=== PATIENT | female | born 1995 | race Caucasian/White ===

== ENCOUNTER 2020-04-08 09:28 | Emergency (ER) | payer OTHER, SELFPAY ==
--- OUTSIDE RECORDS SUMMARY | 2020-04-08 09:30 | XMS REPORT | Continuity of Care Document ---
:[address] [facility] t Address [address] [place] [address] [address]. [address] [place] [address] Care Team Providers Name Role Phone Unavailable Unavailable Unavailable Problems This patient has no known problems. Allergies, Adverse Reactions, Alerts This patient has no known allergies or adverse reactions. Medications This patient has no known medications. Procedures This patient has no known procedures. Encounters Start End Encounter Admission Attending Care Care Encounter Source Date/Time Date/Time Type Type Clinicians Facility Department ID 2018-03-06 2018-03-09 Outpatient [facility] [id number] [address] [place] [address] 00:00:00 00:00:00 [facility] Results This patient has no known results.
[2020-04-08] MEDS ORDERED: KETOROLAC 30 MG/ML INJ ONE (10:03)
[2020-04-08] MEDS ORDERED: METOCLOPRAMIDE 10 MG/2mL INJ ONE (10:03)
[2020-04-08] MEDS ORDERED: DIPHENHYDRAMINE 12.5MG/5ML LIQ ONE (10:04)
[2020-04-08] MEDS ORDERED: NA CHLORIDE 0.9% 1,000 ML ONE (10:04)
[2020-04-08] MEDS ORDERED: DIPHENHYDRAMINE 50 MG/ML VIAL ONE (10:10)
[2020-04-08] MEDS ORDERED: ACETAMIN/CAFFEINE/BUTALB TAB PO ONE (11:11)
[2020-04-08] MEDS ORDERED: ONDANSETRON 4 MG/2 ML VIAL ONE (11:11)
--- NOTE | 2020-04-08 11:32 | ER ---
Nurse's Notes [facility] Name: Symone Thompson Age: 25 yrs Sex: Female : 1995 Arrival Date: 04/08/2020 Time: 09:31 Bed 17 Private MD: Diagnosis: Migraine Presentation: 04/08 09:40 Chief complaint: Patient states: "severe migraine" x 2 days. Pt reports a history of ss migraines. Has been taking Tylenol for pain which has not helped. Coronavirus screen: Client denies travel out of the [place] in the last 14 days. Ebola Screen: Patient denies exposure to infectious person. Patient denies travel to an Ebola-affected area in the 21 days before illness onset. Initial Sepsis Screen: Does the patient meet any 2 criteria? No. Patient's initial sepsis screen is negative. Does the patient have a suspected source of infection? No. Patient's initial sepsis screen is negative. Risk Assessment: Do you want to hurt yourself or someone else? Patient reports no desire to harm self or others. Note Currently resident at [facility] for Marijuana detox. Onset of symptoms was April 06, 2020. 09:40 Acuity: JUN 4 ss 09:40 Method Of Arrival: Ambulatory ss 09:43 Acuity: JUN 3 vg1 Triage Assessment: 10:00 Pain: Also complains of nausea. vg1 10:00 Pain: Pain began 2-3 days ago. vg1 10:05 Headache History: Other patient states has migraines from time to time. 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 - Social history:: Smoking status: Patient reports the use of cigarette tobacco products, smokes one-half pack cigarettes per day. Screenin:00 Abuse screen: Denies threats or abuse. Nutritional screening: No deficits noted. vg1 Tuberculosis screening: No symptoms or risk factors identified. Fall Risk Ambulatory Aid- None/Bed Rest/Nurse Assist (0 pts). Gait- Normal/Bed Rest/Wheelchair (0 pts) Mental Status- Oriented to own ability (0 pts). Total Roque Fall Scale indicates No Risk (0-24 pts). Assessment: 10:00 General: Appears uncomfortable, Behavior is calm, cooperative. Pain: Complains of pain vg1 in head Pain currently is 9 out of 10 on a pain scale. Neuro: Level of Consciousness is awake, alert, obeys commands, Oriented to person, place, time, situation, Speech is normal, Facial symmetry appears normal. Cardiovascular: Capillary refill < 3 seconds Patient's skin is warm and dry. Respiratory: Airway is patent Respiratory effort is even, unlabored, Respiratory pattern is regular, symmetrical. GI: Reports vomited " a lot" this morning. : No signs and/or symptoms were reported regarding the genitourinary system. EENT: No signs and/or symptoms were reported regarding the EENT system. Derm: Skin is intact, is healthy with good turgor, Skin is pink, warm \\T\\ dry. 10:00 Musculoskeletal: Capillary refill < 3 seconds, Range of motion: intact in all vg1 extremities. 10:00 General: Reports headache started two days ago and has been taking Tylenol but it isnt vg1 working. Patient states last dose of Tylenol was last night and took two tablets. 11:00 Reassessment: Patient appears in no apparent distress at this time. No changes from vg1 previously documented assessment. Patient and/or family updated on plan of care and expected duration. Pain level reassessed. Patient is alert, oriented x 3, equal unlabored respirations, skin warm/dry/pink. 11:27 Reassessment: Patient resting in bed. Lights are off, patient states the light bothers vg1 her. States that pain is "a little better" rated 7/10. 11:45 Reassessment: Patient appears in no apparent distress at this time. Patient and/or vg1 family updated on plan of care and expected duration. Pain level reassessed. Patient is alert, oriented x 3, equal unlabored respirations, skin warm/dry/pink. Patient states headache is better and rated 5/10. Vital Signs: 09:40 BP 120 / 77; Pulse 80; Resp 14; Temp 97.8(TE); Pulse Ox 100% on R/A; Weight 104.33 kg; ss Height 5 ft. 8 in. (172.72 cm); Pain 9/10; 10:35 BP 107 / 57; Pulse 97; Resp 12; Pulse Ox 97% on R/A; Pain 9/10; vg1 11:00 BP 111 / 78; Pulse 95; Resp 12; Pulse Ox 98% on R/A; Pain 9/10; vg1 11:37 BP 95 / 50; Pulse 81; Resp 14; Pulse Ox 98% on R/A; Pain 5/10; vg1 09:40 Body Mass Index 34.97 (104.33 kg, 172.72 cm) ss [place] Coma Score: 09:44 Eye Response: spontaneous(4). Verbal Response: oriented(5). Motor Response: obeys kb commands(6). Total: 15. ED Course: 09:31 Patient arrived in ED. mr 09:37 Bernard Nancie, GEMA [facility]. kb 09:37 Rodolfo Pepe MD is Attending Physician. kb 09:41 Pam Delgado, RN is Primary Nurse. hb 09:42 Primary Nurse role handed off by Pam Delgado, RN vg1 09:42 Marybel High, RN is Primary Nurse. vg1 09:42 Triage completed. ss 09:46 Arm band placed on right wrist. ss 10:00 Patient has correct armband on for positive identification. Bed in low position. Call vg1 light in reach. Pulse ox on. NIBP on. Door closed. Lights dimmed. 11:45 No provider procedures requiring assistance completed. IV discontinued, intact, vg1 bleeding controlled, No redness/swelling at site. Pressure dressing applied. Administered Medications: 10:18 Drug: NS 0.9% 1000 ml Route: IV; Rate: 1000 ml; Site: right hand; vg1 11:07 Follow up: Response: No adverse reaction; Rate change 1000 bolus vg1 10:18 Drug: Reglan 10 mg Route: IVP; Site: right hand; vg1 11:07 Follow up: Response: No adverse reaction vg1 10:18 Drug: Benadryl 12.5 mg Route: IVP; Site: right hand; vg1 11:06 Follow up: Response: No adverse reaction vg1 10:18 Drug: TORadol - Ketorolac 15 mg Route: IVP; Site: right hand; vg1 11:06 Follow up: Response: No adverse reaction; Pain is unchanged, physician notified vg1 11:06 Drug: Zofran (Ondansetron) 4 mg Route: IVP; Site: right hand; vg1 11:27 Follow up: Response: No adverse reaction; Nausea is decreased vg1 11:06 Drug: Fioricet - Esgic 325 mg-40 mg-50 mg 1 tab-caps Route: PO; vg1 Outcome: 11:32 Discharge ordered by . iliana 11:45 Discharged to home ambulatory. vg1 11:45 Condition: good 11:45 Discharge instructions given to patient, Instructed on discharge instructions, follow up and referral plans. Demonstrated understanding of instructions, follow-up care. 11:52 Patient left the ED. vg1 Signatures: Nancie Wagner, FITNESS SPECIALIST-C FITNESS SPECIALIST-Kimberly Zabala Poornima Arias, RN RN Pam Casey, Marybel Oneill RN, RN RN vg1
--- NOTE | 2020-04-08 11:33 | EDPHYS ---
Physician Documentation [facility] Name: Symone Thompson Age: 25 yrs Sex: Female : 1995 Arrival Date: 04/08/2020 Time: 09:31 Bed 17 Private MD: ED Physician Rodolfo Pepe HPI: 04/08 09:44 This 25 yrs old Female presents to ER via Ambulatory with complaints of kb Headache. 09:44 The patient complains of pain to the forehead. The patient describes the headache as kb constant. Onset: The symptoms/episode began/occurred 2 day(s) ago. Associated signs and symptoms: Pertinent positives: nausea, Photophobia vomiting, Pertinent negatives: altered mental status, dizziness, fever, malaise, neck stiffness, paresthesias, rash, sinus congestion, sinus tenderness, vision changes, vision loss, weakness, vertigo. Severity of symptoms: At its worst the pain was moderate, in the emergency department the pain is unchanged. Headache History: The patient has had previous headaches and this one is similar to previous episodes. The symptoms are alleviated by nothing. the symptoms are aggravated by lights, noise. The patient has experienced similar episodes in the past. The patient has not recently seen a physician. 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 - Social history:: Smoking status: Patient reports the use of cigarette tobacco products, smokes one-half pack cigarettes per day. ROS: 09:44 Constitutional: Negative for fever, chills, and weight loss, Cardiovascular: Negative kb for chest pain, palpitations, and edema, Respiratory: Negative for shortness of breath, cough, wheezing, and pleuritic chest pain, Abdomen/GI: Negative for abdominal pain, nausea, vomiting, diarrhea, and constipation, Back: Negative for injury and pain, MS/Extremity: Negative for injury and deformity, Skin: Negative for injury, rash, and discoloration. 09:44 Neuro: Positive for headache. Exam: :44 Constitutional: This is a well developed, well nourished patient who is awake, alert, kb and in no acute distress. Head/Face: Normocephalic, atraumatic. Eyes: Pupils equal round and reactive to light, extra-ocular motions intact. Lids and lashes normal. Conjunctiva and sclera are non-icteric and not injected. Cornea within normal limits. Periorbital areas with no swelling, redness, or edema. Chest/axilla: Normal chest wall appearance and motion. Nontender with no deformity. No lesions are appreciated. Cardiovascular: Regular rate and rhythm with a normal S1 and S2. No gallops, murmurs, or rubs. Normal PMI, no JVD. No pulse deficits. Respiratory: Lungs have equal breath sounds bilaterally, clear to auscultation and percussion. No rales, rhonchi or wheezes noted. No increased work of breathing, no retractions or nasal flaring. Abdomen/GI: Soft, non-tender, with normal bowel sounds. No distension or tympany. No guarding or rebound. No evidence of tenderness throughout. Skin: Warm, dry with normal turgor. Normal color with no rashes, no lesions, and no evidence of cellulitis. MS/ Extremity: Pulses equal, no cyanosis. Neurovascular intact. Full, normal range of motion. Neuro: Awake and alert, GCS 15, oriented to person, place, time, and situation. Cranial nerves II-XII grossly intact. Motor strength 5/5 in all extremities. Sensory grossly intact. Cerebellar exam normal. Normal gait. Vital Signs: 09:40 BP 120 / 77; Pulse 80; Resp 14; Temp 97.8(TE); Pulse Ox 100% on R/A; Weight 104.33 kg; ss Height 5 ft. 8 in. (172.72 cm); Pain 9/10; 10:35 BP 107 / 57; Pulse 97; Resp 12; Pulse Ox 97% on R/A; Pain 9/10; vg1 11:00 BP 111 / 78; Pulse 95; Resp 12; Pulse Ox 98% on R/A; Pain 9/10; vg1 11:37 BP 95 / 50; Pulse 81; Resp 14; Pulse Ox 98% on R/A; Pain 5/10; vg1 09:40 Body Mass Index 34.97 (104.33 kg, 172.72 cm) ss [place] Coma Score: 09:44 Eye Response: spontaneous(4). Verbal Response: oriented(5). Motor Response: obeys kb commands(6). Total: 15. MDM: 09:37 Patient medically screened. kb 09:44 Data reviewed: vital signs, nurses notes. Data interpreted: Pulse oximetry: on room air kb is 100 %. Interpretation: normal. 04/08 09:40 Order name: IV Start; Complete Time: 10:26 kb Administered Medications: 10:18 Drug: NS 0.9% 1000 ml Route: IV; Rate: 1000 ml; Site: right hand; vg1 11:07 Follow up: Response: No adverse reaction; Rate change 1000 bolus vg1 10:18 Drug: Reglan 10 mg Route: IVP; Site: right hand; vg1 11:07 Follow up: Response: No adverse reaction vg1 10:18 Drug: Benadryl 12.5 mg Route: IVP; Site: right hand; vg1 11:06 Follow up: Response: No adverse reaction vg1 10:18 Drug: TORadol - Ketorolac 15 mg Route: IVP; Site: right hand; vg1 11:06 Follow up: Response: No adverse reaction; Pain is unchanged, physician notified vg1 11:06 Drug: Zofran (Ondansetron) 4 mg Route: IVP; Site: right hand; vg1 11:27 Follow up: Response: No adverse reaction; Nausea is decreased vg1 11:06 Drug: Fioricet - Esgic 325 mg-40 mg-50 mg 1 tab-caps Route: PO; vg1 Disposition: 18:56 Co-signature as Attending Physician, Rodolfo Pepe MD I agree with the assessment and kdr plan of care. Disposition: 04/08/20 11:32 Discharged to Home. Impression: Migraine. - Condition is Stable. - Discharge Instructions: Migraine Headache, [id number]. - Medication Reconciliation Form, Thank You Letter, Antibiotic Education, Prescription Opioid Use form. - Follow up: Private Physician; When: 2 - 3 days; Reason: Recheck today's complaints, Continuance of care, Re-evaluation by your physician. Follow up: Emergency Department; When: As needed; Reason: Worsening of condition. Signatures: Nancie Wagner, MARYCHUY-C AUTOMATIC GRINDING MACHINE OPERATOR-Rodolfo Nelson MD MD [facility] Poornima Arias RN RN ss Marybel High RN RN vg1 Corrections: (The following items were deleted from the chart) 11:52 11:32 04/08/2020 11:32 Discharged to Home. Impression: Migraine. Condition is Stable. vg1 Discharge Instructions: Migraine Headache, [id number]. Forms are Medication Reconciliation Form, Thank You Letter, Antibiotic Education, Prescription Opioid Use. Follow up: Private Physician; When: 2 - 3 days; Reason: Recheck today's complaints, Continuance of care, Re-evaluation by your physician. Follow up: Emergency Department; When: As needed; Reason: Worsening of condition. kb
[2020-04-08 11:57] VITALS: TEMP 97.8
[2020-04-08 12:00] VITALS: BP 111/78; O2SAT 98
== END 2020-04-08 11:52 | disposition home or self-care (01) ==
LOC: ER 09:28
DX: G43.909 Migraine, unspecified, not intractable, without status migrainosus (principal); F31.9 Bipolar disorder, unspecified; F17.210 Nicotine dependence, cigarettes, uncomplicated; Z88.0 Allergy status to penicillin
CPT/HCPCS: 96374; 96375; 99283; J1200; J2405; J2765; J7030; Q0163

== ENCOUNTER 2020-04-13 14:30 | Emergency (ER) | payer SELFPAY ==
--- OUTSIDE RECORDS SUMMARY | 2020-04-13 14:32 | XMS REPORT | Continuity of Care Document ---
:1995 Author Organization [facility] t Address [address] [place] [address] Dr. Soriano [address] [place] [address] Care Team Providers Name Role Phone Unavailable [...] Clinicians Facility Department ID 2018-03-06 2018-03-09 [facility] [id number] [address] [place] [address] 00:00:00 00:00:00 [facility] Results This patient has no known results.
[2020-04-13 15:22] LABS: Absolute Lymphocytes (CBC) 3.3 K/uL (0.7-4.9); Basophils % 0.4 % (0-1.3); Hematocrit 42.3 % (36.0-45.0); Lymphocytes % 22.1 % (15.3-44.8); MPV 9.6 fL (7.6-11.3); RBC Red Blood Cell Count 4.98 M/uL (3.86-4.86)
[2020-04-13] MEDS ORDERED: MORPHINE 2 MG/ML SYR ONE (15:22)
[2020-04-13] MEDS ORDERED: ONDANSETRON 4 MG/2 ML VIAL ONE ×2 (15:23→19:14)
[2020-04-13] MEDS ORDERED: NA CHLORIDE 0.9% 1,000 ML ONE (15:23)
[2020-04-13 15:25] LABS: Protime INR 0.98
--- NOTE | 2020-04-13 15:30 | RAD REPORT ---
EXAM DESCRIPTION: CT - Head Brain Wo Cont - 04/13/2020 3:17 pm CLINICAL HISTORY: Syncope COMPARISON: None TECHNIQUE: Computed axial tomography of the head was obtained. IV contrast was not requested. All CT scans are performed using dose optimization technique as appropriate and may include automated exposure control or mA/KV adjustment according to patient size. FINDINGS: An intracranial bleed is not seen . The ventricles are normal in caliber. No extra-axial fluid collection is noted. Mild to moderate low-density areas within periventricular, deep and subcortical white matter likely r epresent ischemic changes secondary to small vessel disease. Fluid within the sinuses/ mastoids is not seen. IMPRESSION: No acute intracranial abnormality is seen. If patient's symptoms persist MRI of the bra in would be recommended.
--- NOTE | 2020-04-13 15:41 | RAD REPORT ---
EXAM DESCRIPTION: [place] Single View04/13/2020 3:11 pm CLINICAL HISTORY: Chest pain COMPARISON: none FINDINGS: The lungs appear clear of acute infiltrate. The heart is normal size IMPRESSION: No acute abnormalities displayed
[2020-04-13 15:47] LABS: ALT/SGPT 20 U/L (12-78); AST/SGOT 11 U/L (15-37); Alkaline Phosphatase 99 U/L (45-117); BUN Blood Urea Nitrogen 10 mg/dL (7-18); Bicarbonate 28 mmol/L (21-32); Bilirubin Direct < 0.1 mg/dL (0-0.2); Bilirubin Total 0.3 mg/dL (0.2-1.0); Glucose Level 105 mg/dL (74-106); Potassium 3.7 mmol/L (3.5-5.1); Protein, Total 7.9 g/dL (6.4-8.2); Sodium Level 139 mmol/L (136-145); Troponin (Emerg Dept Use Only) < 0.02 ng/mL (0.0-0.045)
[2020-04-13 15:48] LABS: NT PRO-BNP < 5 pg/mL (<125)
[2020-04-13 15:59] LABS: Urine Blood NEGATIVE (NEG); Urine Glucose NEGATIVE (NEG); Urine Protein NEGATIVE (NEG); Urine Specific Gravity 1.015 (1.005-1.030)
[2020-04-13] MEDS ORDERED: KETOROLAC 30 MG/ML INJ ONE (17:06)
--- NOTE | 2020-04-13 17:19 | RAD REPORT ---
EXAM DESCRIPTION: CT - Abdomen Pelvis W Contrast - 04/13/2020 4:51 pm CLINICAL HISTORY: Abdominal pain COMPARISON: 2013 TECHNIQUE: Computed axial tomography of the abdomen pelvis was obtained. 100 cc Isovue-300 was admin istered intravenously. Oral contrast was not requested which limits evaluation of bowel. All CT scans are performed using dose optimization technique as appropriate and may include automated exposure control or mA/KV adjustment according to patient size. FINDINGS: The liver, spleen, pancreas, adrenal and kidneys appear unremarkable. There is no evidence of diverticulitis. IUD in good position Proximal and mid appendix normal. Mild thickening of the appendiceal tip. No adjacent stranding withi n the fat. No free air. No abscess A small ventral hernia within the lower abdomen contains fat. The neck measures 1 centimeter. Tiny um bilical hernia IMPRESSION: Mild thickening of the appendiceal tip. This is visualized on the 2013 exam so it may be a normal finding for the patient. An early appendicitis can also result this appearance and should c orrelated clinically.
[2020-04-13] MEDS ORDERED: DICYCLOMINE HCL 10 MG CAP ONE (17:57)
[2020-04-13] MEDS ORDERED: CIPROFLOXACIN 400mg IV 400 MG/200 ML BAG IV ONE (18:49)
[2020-04-13] MEDS ORDERED: METRONIDAZOLE 500mg IVPB 500 MG/100 ML BAG IV ONE (18:49)
--- NOTE | 2020-04-13 19:02 | EDPHYS ---
Physician Documentation [facility] Name: Symone Thompson Age: 25 yrs Sex: Female : 1995 Arrival Date: 04/13/2020 Time: 14:32 Bed 14 Private MD: ED Physician HPI: 04/13 15:09 This 25 yrs old Female presents to ER via Ambulatory with complaints of jmm Syncope. 15:09 The patient has experienced syncope. Onset: The symptoms/episode began/occurred jmm acutely, just prior to arrival. Duration: This was a single episode. Associated injury: Head/face:. Associated signs and symptoms: Pertinent positives: vaginal bleeding. This is a 25 year old female with a history of anxiety, depression, von wildebrands anemia, bipolar that presents to the ED with complaints of headache, pelvic cramping after a syncopal episode which occurred just prior to arrival. Patient started her cycle 2 days ago and now complains of pelvic cramping. . Historical: - Allergies: 14:39 PENICILLINS; ll1 - PMHx: 14:39 Anxiety; Depression; ibs; vonwildebrands; Migraines; Bipolar disorder; ll1 - PSHx: 14:39 None; ll1 - Immunization history:: Flu vaccine is up to date. - Social history:: Smoking status: Patient reports the use of cigarette tobacco products, smokes one-half pack cigarettes per day. ROS: 15:09 Constitutional: Negative for fever, chills, and weight loss, Cardiovascular: Negative jmm for chest pain, palpitations, and edema, Respiratory: Negative for shortness of breath, cough, wheezing, and pleuritic chest pain. 15:09 : Positive for vaginal bleeding. 15:09 Neuro: Positive for headache, loss of consciousness, syncope. 15:09 All other systems are negative. Exam: 15:05 ECG was reviewed by the Attending Physician. jmm 15:09 Constitutional: This is a well developed, well nourished patient who is awake, alert, jmm and in no acute distress. Head/Face: atraumatic. Eyes: EOMI, no conjunctival erythema appreciated ENT: Moist Mucus Membranes Neck: Trachea midline, Supple Chest/axilla: Normal chest wall appearance and motion. Cardiovascular: Regular rate and rhythm. No edema appreciated Respiratory: Normal respirations, no respiratory distress appreciated Abdomen/GI: Non distended, soft Back: Normal ROM Skin: General appearance color normal MS/ Extremity: Moves all extremities, no obvious deformities appreciated, no edema noted to the lower extremities Neuro: Awake and alert, normal gait Psych: Behavior is normal, Mood is normal, Patient is cooperative and pleasant Vital Signs: 14:37 BP 119 / 55; Pulse 103; Resp 18; Temp 98.5; Pulse Ox 99% ; Weight 99.79 kg; Height 5 ll1 ft. 5 in. (165.10 cm); Pain 9/10; 16:07 BP 107 / 55 Supine; Pulse 84; ss 16:07 BP 112 / 72 Sitting; Pulse 89; ss 16:07 BP 99 / 70 Standing; Pulse 93; ss 16:07 Resp 14; Pulse Ox 99% on R/A; ss 18:24 BP 104 / 63; Pulse 80; Resp 14; Pulse Ox 99% on R/A; Pain 8/10; ss 19:26 BP 104 / 65; Pulse 78; Resp 18; Pulse Ox 98% ; ea 20:18 BP 114 / 84; Pulse 80; Resp 18; Pulse Ox 98% ; ea 14:37 Body Mass Index 36.61 (99.79 kg, 165.10 cm) ll1 MDM: 14:51 Patient medically screened. [facility] 18:56 Data reviewed: vital signs, nurses notes, lab test result(s). Counseling: I had a [facility] detailed discussion with the patient and/or guardian regarding: the historical points, exam findings, and any diagnostic results supporting the discharge/admit diagnosis, lab results, radiology results, the need to transfer to another facility. ED course: I discussed the patient with Dr. Castillo and Dr. Casarez whom accepted the patient for transfer. . 04/13 14:48 Order name: Basic Metabolic Panel; Complete Time: 16:25 [facility] 04/13 14:48 Order name: CBC with Diff; Complete Time: 15:43 [facility] 04/13 14:48 Order name: LFT's; Complete Time: 16:25 [facility] 04/13 14:48 Order name: Magnesium; Complete Time: 16:25 [facility] 04/13 14:48 Order name: NT PRO-BNP; Complete Time: 16:25 [facility] 04/13 14:48 Order name: PT-INR; Complete Time: 15:43 [facility] 04/13 14:48 Order name: Troponin (emerg Dept Use Only); Complete Time: 16:25 [facility] 04/13 14:48 Order name: Type And Screen; Complete Time: 16:25 [facility] 04/13 15:33 Order name: Urine Dipstick--Ancillary (enter results); Complete Time: 16:25 bd 04/13 15:33 Order name: Urine --Ancillary (enter results); Complete Time: 16:25 bd 04/13 15:44 Order name: D-Dimer; Complete Time: 16:31 [facility] 04/13 14:48 Order name: XRAY Chest (1 view); Complete Time: 15:43 [facility] 04/13 14:48 Order name: EKG; Complete Time: 14:49 [facility] 04/13 14:48 Order name: Cardiac monitoring; Complete Time: 15:04 [facility] 04/13 14:56 Order name: CT Head Brain wo Cont; Complete Time: 15:43 [facility] 04/13 16:32 Order name: CT Abd/Pelvis - IV Contrast Only; Complete Time: 17:25 [facility] 04/13 14:48 Order name: EKG - Nurse/Tech; Complete Time: 15:04 [facility] 04/13 14:48 Order name: IV Saline Lock; Complete Time: 15:05 [facility] 04/13 14:48 Order name: Labs collected and sent; Complete Time: 15:05 [facility] 04/13 14:48 Order name: O2 Per Protocol; Complete Time: 15:05 [facility] 04/13 14:48 Order name: O2 Sat Monitoring; Complete Time: 15:05 [facility] 04/13 14:56 Order name: Urine Dipstick-Ancillary (obtain specimen); Complete Time: 15:31 [facility] 04/13 14:56 Order name: Urine Test (obtain specimen); Complete Time: 15:31 [facility] 04/13 15:43 Order name: Orthostatic Blood Pressure; Complete Time: 16:09 [facility] 04/13 17:58 Order name: Pelvic Exam Setup; Complete Time: 18:33 jmm EC:05 Rate is 90 beats/min. Rhythm is regular. QRS [place] is Normal. MN interval is normal. QRS jmm interval is normal. QT interval is normal. No Q waves. T waves are Inverted in leads III, aVR. No ST changes noted. Reviewed by me. Administered Medications: 15:18 Drug: NS 0.9% 1000 ml Route: IV; Rate: 1 bolus; Site: right antecubital; ss 15:20 Drug: Zofran (Ondansetron) 4 mg Route: IVP; Site: right antecubital; ss 16:04 Follow up: Response: No adverse reaction ss 15:22 Drug: morphine 2 mg Route: IVP; Site: right antecubital; ss 16:03 Follow up: Response: No adverse reaction; Pain is decreased ss 16:57 Drug: Ketorolac 30 mg Route: IVP; Site: right antecubital; ss 18:33 Follow up: Response: No adverse reaction; No change in condition ss 17:47 Drug: Bentyl 20 mg Route: PO; jl7 18:34 Follow up: Response: No adverse reaction; No change in condition ss 18:43 Drug: Flagyl 500 mg Volume: 100 ml; Route: IVPB; Rate: 200 ml/hr; Infused Over: 30 ss mins; Site: right antecubital; 19:12 Follow up: IV Status: Completed infusion ss 19:23 Follow up: Response: No adverse reaction; IV Status: Completed infusion ea 19:15 Drug: Zofran (Ondansetron) 4 mg Route: IVP; Site: right antecubital; ea 20:18 Follow up: Response: No adverse reaction ea 19:18 Drug: morphine 4 mg {Note: rass 0.} Route: IVP; Site: right antecubital; ea 20:18 Follow up: Response: No adverse reaction; Pain is decreased ea 19:23 Drug: Cipro 400 mg Volume: 200 ml; Route: IVPB; Infused Over: 60 mins; Site: right ea antecubital; 20:17 Follow up: Response: No adverse reaction; IV Status: Completed infusion ea 20:31 Drug: morphine 4 mg {Note: rass 0.} Route: IVP; Site: right antecubital; ea 20:38 Follow up: Response: Other ea Disposition: 04/14 06:32 Co-signature as Attending Physician, Rodolfo Pepe MD I agree with the assessment and kdr plan of care. Disposition: 04/13/20 19:01 Transfer ordered to [facility]. Diagnosis are Acute appendicitis, Syncope and collapse. - Reason for transfer: Higher level of care. - Accepting physician is [employer]. - Condition is Stable. - Problem is new. - Symptoms are unchanged. Signatures: Dispatcher [employer] [facility] Rodolfo Pepe MD MD kdr Mickail, Joel, PA PA [facility] Poornima Arias, RN RN Anjelica Hernández RN RN jl7 Sarika Katz RN Amadeo Nelson ea RN RN ll1 Corrections: (The following items were deleted from the chart) 04/13 15:56 15:44 Abdomen Pelvis W Con+CT.RAD.BRZ ordered. [facility] 20:16 19:01 04/13/2020 19:01 Transfer ordered to [facility]. ea Diagnosis is Acute appendicitis; Syncope and collapse. Reason for transfer: Higher level of care. Accepting physician is [employer]. Condition is Stable. Problem is new. Symptoms are unchanged. [facility] 20:32 20:16 04/13/2020 19:01 Transfer ordered to [facility]. ea Diagnosis is Acute appendicitis; Syncope and collapse. Reason for transfer: Higher level of care. Accepting physician is [employer]. Condition is Stable. Problem is new. Symptoms are unchanged. ea
--- NOTE | 2020-04-13 19:02 | ER ---
Nurse's Notes [facility] Name: Symone Thompson Age: 25 yrs Sex: Female : 1995 Arrival Date: 04/13/2020 Time: 14:32 Bed 14 Private MD: Diagnosis: Acute appendicitis;Syncope and collapse Presentation: 04/13 14:37 Chief complaint: Patient states: States she passed out today. Has been weak for 3 days. ll1 States she has von Willebrand's disease. She believes her iron is low, or she is anemic. Some abdominal cramping. Coronavirus screen: Client denies travel out of the [place] in the last 14 days. At this time, the client does not indicate any symptoms associated with coronavirus-19. Ebola Screen: Patient denies travel to an Ebola-affected area in the 21 days before illness onset. Initial Sepsis Screen: Does the patient meet any 2 criteria? HR > 90 bpm. No. Patient's initial sepsis screen is negative. Does the patient have a suspected source of infection? Yes: Acute abdominal pain. Risk Assessment: Do you want to hurt yourself or someone else? Patient reports no desire to harm self or others. Onset of symptoms was April 11, 2020. 14:37 Method Of Arrival: Ambulatory ll1 14:37 Acuity: JUN 3 ll1 Historical: - Allergies: 14:39 PENICILLINS; ll1 - PMHx: 14:39 Anxiety; Depression; ibs; vonwildebrands; Migraines; Bipolar disorder; ll1 - PSHx: 14:39 None; ll1 - Immunization history:: Flu vaccine is up to date. - Social history:: Smoking status: Patient reports the use of cigarette tobacco products, smokes one-half pack cigarettes per day. Screenin:48 Abuse screen: Denies threats or abuse. Denies injuries from another. Nutritional ss screening: No deficits noted. Tuberculosis screening: Never had TB. Fall Risk None identified. Assessment: 14:48 General: Appears in no apparent distress. comfortable, Behavior is calm, cooperative, ss quiet, Reports fatigue for 1-2 days, Denies fever, feeling ill, chills. Pain: Complains of pain in suprapubic area Pain currently is 9 out of 10 on a pain scale. Quality of pain is described as crampy, Pain began "2 days ago" when menstrual cycle started Is continuous. Neuro: Level of Consciousness is awake, alert, obeys commands, Oriented to person, place, time, situation. Cardiovascular: Capillary refill < 3 seconds is brisk in bilateral fingers. Respiratory: Airway is patent Respiratory effort is even, unlabored, Respiratory pattern is regular, symmetrical. GI: Patient currently denies diarrhea, nausea, vomiting. : Reports vaginal bleeding x 2 days. "menstrual cycle". EENT: Oral mucosa is moist. Derm: Skin is intact, is healthy with good turgor, Skin is dry, Skin is pink, warm \\T\\ dry. normal. 15:50 Reassessment: Patient appears in no apparent distress at this time. No changes from ss previously documented assessment. 16:30 Reassessment: Patient and/or family updated on plan of care and expected duration. Pain ss level reassessed. Patient is alert, oriented x 3, equal unlabored respirations, skin warm/dry/pink. 17:13 Reassessment: Patient appears in no apparent distress at this time. Patient and/or ss family updated on plan of care and expected duration. Pain level reassessed. Patient is alert, oriented x 3, equal unlabored respirations, skin warm/dry/pink. awaiting CT results. 17:29 Reassessment: CT results back, awaiting disposition. ss 18:24 Reassessment: Set up for pelvic exam. Order to hold exam at this time per chente Watt. 20:15 Reassessment: Patient and/or family updated on plan of care and expected duration. Pain ea level reassessed. Patient is alert, oriented x 3, equal unlabored respirations, skin warm/dry/pink. Pt transferred to [facility]. Pt left ED via [facility], pt tolerating well. 20:20 Reassessment: report called to Magaly NGUYEN for room 943 [facility]. bb Vital Signs: 14:37 BP 119 / 55; Pulse 103; Resp 18; Temp 98.5; Pulse Ox 99% ; Weight 99.79 kg; Height 5 ll1 ft. 5 in. (165.10 cm); Pain 9/10; 16:07 BP 107 / 55 Supine; Pulse 84; ss 16:07 BP 112 / 72 Sitting; Pulse 89; ss 16:07 BP 99 / 70 Standing; Pulse 93; ss 16:07 Resp 14; Pulse Ox 99% on R/A; ss 18:24 BP 104 / 63; Pulse 80; Resp 14; Pulse Ox 99% on R/A; Pain 8/10; ss 19:26 BP 104 / 65; Pulse 78; Resp 18; Pulse Ox 98% ; ea 20:18 BP 114 / 84; Pulse 80; Resp 18; Pulse Ox 98% ; ea 14:37 Body Mass Index 36.61 (99.79 kg, 165.10 cm) ll1 ED Course: 14:32 Patient arrived in ED. bp1 14:39 Triage completed. ll1 14:40 Arm band placed on Patient placed in an exam room, on a stretcher. ll1 14:45 Lorne Jimenez PA is PHCP. [facility] 14:45 Rodolfo Pepe MD is Attending Physician. [facility] 14:48 Patient has correct armband on for positive identification. Bed in low position. Call ss light in reach. Warm blanket given. 14:50 Poornima Arias, WENDY is Primary Nurse. ss 15:00 Initial lab(s) drawn, by az, sent to lab. T\\T\\S collected, blood band applied to patient. jp3 Inserted saline lock: 20 gauge in right antecubital area, using aseptic technique. Blood collected. 15:00 Patient maintains SpO2 saturation greater than 95% on room air. jp3 15:04 laboratory monitor on. Pulse ox on. NIBP on. jp3 15:04 X-ray(s) taken. jp3 15:11 XRAY Chest (1 view) In Process Unspecified. EDMS 15:17 CT Head Brain wo Cont In Process Unspecified. EDMS 16:51 CT Abd/Pelvis - IV Contrast Only In Process Unspecified. EDMS 19:00 Report on transfer received from Ama. tt3 19:17 Evelyn Syed gave admin approval. The pt is going to room 943. Report to be called tt3 to . Face Sheet faxed to per Evelyn's request. Dr. Murry is the accepting physician. 19:26 No provider procedures requiring assistance completed. Patient transferred, IV remains ea in place. 20:19 Attending Physician role handed off by Rodolfo Pepe MD bb 20:19 Primary Nurse role handed off by Poornima Arias RN bb 20:21 [facility] here to transfer pt. tt3 Administered Medications: 15:18 Drug: NS 0.9% 1000 ml Route: IV; Rate: 1 bolus; Site: right antecubital; ss 15:20 Drug: Zofran (Ondansetron) 4 mg Route: IVP; Site: right antecubital; ss 16:04 Follow up: Response: No adverse reaction ss 15:22 Drug: morphine 2 mg Route: IVP; Site: right antecubital; ss 16:03 Follow up: Response: No adverse reaction; Pain is decreased ss 16:57 Drug: Ketorolac 30 mg Route: IVP; Site: right antecubital; ss 18:33 Follow up: Response: No adverse reaction; No change in condition ss 17:47 Drug: Bentyl 20 mg Route: PO; jl7 18:34 Follow up: Response: No adverse reaction; No change in condition ss 18:43 Drug: Flagyl 500 mg Volume: 100 ml; Route: IVPB; Rate: 200 ml/hr; Infused Over: 30 ss mins; Site: right antecubital; 19:12 Follow up: IV Status: Completed infusion ss 19:23 Follow up: Response: No adverse reaction; IV Status: Completed infusion ea 19:15 Drug: Zofran (Ondansetron) 4 mg Route: IVP; Site: right antecubital; ea 20:18 Follow up: Response: No adverse reaction ea 19:18 Drug: morphine 4 mg {Note: rass 0.} Route: IVP; Site: right antecubital; ea 20:18 Follow up: Response: No adverse reaction; Pain is decreased ea 19:23 Drug: Cipro 400 mg Volume: 200 ml; Route: IVPB; Infused Over: 60 mins; Site: right ea antecubital; 20:17 Follow up: Response: No adverse reaction; IV Status: Completed infusion ea 20:31 Drug: morphine 4 mg {Note: rass 0.} Route: IVP; Site: right antecubital; ea 20:38 Follow up: Response: Other ea Outcome: 19:01 ER care complete, transfer ordered by . ana 19:26 Instructed on the need for transfer. ea 20:15 Transferred by ground EMS to [facility], Transfer form completed. ea 20:15 Condition: stable 20:16 Patient left the ED. ea 20:32 Patient left the ED. ea Signatures: Dispatcher [employer] EDMS Lorne Jimenez PA PA jmm Ballard, Brenda, RN RN bb Poornima Arias RN RN ss Anjelica Herbert RN RN jl7 Sarika Katz RN RN Gigi Amato jp3 Amadeo Boland RN RN ll1 Tiffanie Cohen [facility] eJff Hamm tt3 Corrections: (The following items were deleted from the chart) 16:05 16:04 BP 107 / 55 Supine; Pulse 84bpm; ss ss 16:05 16:04 BP 112 / 72; Pulse 89bpm; Resp 14bpm; Pulse Ox 99% RA; ss ss
[2020-04-13] MEDS ORDERED: MORPHINE 4 MG/ML SYR ONE ×2 (19:14→20:39)
[2020-04-13 20:45] VITALS: TEMP 98.5
[2020-04-13 20:55] VITALS: O2SAT 98
[2020-04-13 21:16] VITALS: BP 114/84
--- NOTE | 2020-04-14 11:30 | EKG ---
Test Date: 2020-04-13 Test Time: 14:58:28 [employer] Operator: ALONA MEASUREMENT RESULTS: Intervals: Rate: 90 HI: 160 QRSD: 84 QT: 376 QTc: 459 [place]: P: 37 HI: 160 QRS: 7 T: 12 INTERPRETIVE STATEMENTS: Normal sinus rhythm Moderate voltage criteria for LVH, may be normal variant Nonspecific T wave abnormality Abnormal ECG No previous ECG available for comparison Electronically Signed On 04-14-20 11:27:14 CDT by Norman Fulton
== END 2020-04-13 20:32 | disposition short-term general hospital (02) ==
LOC: ER 14:30
DX: K35.80 Unspecified acute appendicitis (principal); Z20.828 Contact with and (suspected) exposure to other viral communicable diseases; F31.9 Bipolar disorder, unspecified; F17.210 Nicotine dependence, cigarettes, uncomplicated; Z88.0 Allergy status to penicillin
CPT/HCPCS: 36415; 70450; 71045; 74177; 80048; 80076; 81003; 81025; 83735; 83880; 84484; 85025; 85379; 85610; 86850; 86900; 86901; 93005; 96365; 96367; 96375; 99285; J0744; J2270; J2405; J7030; Q9967; U0003

== ENCOUNTER 2020-08-16 19:00 | Emergency (ER) | payer OTHER ==
--- OUTSIDE RECORDS SUMMARY | 2020-08-16 19:04 | XMS REPORT | Continuity of Care Document ---
:1995 Author Organization [employer] Care Team Providers Name Role Phone [employer] Unavailable Un available Problems Problem Status Onset Classification Date Comments Sourc e Date Reported ABDOMINAL PAIN Active [place] Medications Medication Details Route Status Patient Ordering Order Source Instructions Provider Date lactulose 20 g 20 gm, 1 ea, PO Active Melisa S ugar oral powder PO, TID, 42 ea, 011 [place] Substitution Allowed, PDR/REC Omnipaque 300 30,000 mg, 100 IV Active [place] mL, Route: IV, 011 [place] Drug form: SOLN, ONCE, Start date: 03/20/11 13:13:00, Stop date: 03/20/11 13:13:00 hydromorphone 1 mg, 0.5 mL, IVP No S ugar Route: IVP, Longer 011 [facility] Drug form: INJ, Active ONCE, Priority: STAT, Start date: 03/20/11 12:57:00, Stop date: 03/20/11 12:57:00 Mirena Substitution Active [place] Allowed [place]11 [place] tramadol Substitution Active [place] Allowed 011 [place] Unknown Home Substitution Active Sug ar Medication Allowed 011 [place] hydromorphone 1 mg, 0.5 mL, IVP No S ugar Route: IVP, Longer 011 [facility] Drug form: INJ, Active ONCE, Priority: STAT, Start date: 03/20/11 11:05:00, Stop date: 03/20/11 11:05:00 ondansetron 4 mg, 2 mL, IVP No Melisa [place] Route: IVP, Longer 011 [facility] Drug form: INJ, Active ONCE, Priority: STAT, Start date: 03/20/11 11:05:00, Stop date: 03/20/11 11:05:00 Sodium Chloride 1,000 mL, Rate: IV No Melisa [place] 0.9% (Bolus) IV 1,000 ml/hr, Longer 011 [place] 1,000 mL Infuse over: 1 Active hr, Route: IV, Total Volume: 1,000, Bolus Dose, Priority: STAT, Start date: 03/20/11 11:05:00, Duration: 1 doses or times, Stop date: 03/20/11 12:04:00 Saline Flush 5 ml, Route: IVP No Melisa [place] 0.9% IVP, Drug Form: Longer 011 [place] INJ, PRN, PRN Active Line Flush, Start date: 03/20/11 11:05:00, Duration: 30 day, Stop date: 04/19/11 11:04:00 Allergies, Adverse Reactions, Alerts Substance Category Reaction Severity Reaction Status Date Comments S ource type Reported penicillins drug Allergy Active allergy [place] Immunizations No Data Provided for This Section Results Order Name Results Value Reference Date Interpretation Comments Naina rce Range CHEMISTRY U Preg Negative >Negative 03/20 Normal (03/20/2011 11:35:00) ?? [place] CHEMISTRY AST 11.0 0 - 37 03/20 Normal [place] CHEMISTRY Bili Total 1.0 0.2 - 1.3 03/20 Normal [place] CHEMISTRY Alk Phos 84.0 39 - 136 03/20 Normal [place] CHEMISTRY Total Protein 7.6 6.4 - 8.4 03/20 Normal [place] CHEMISTRY CO2 25.0 24 - 32 03/20 Normal [place] CHEMISTRY Glucose Lvl 88.0 03/20 NA <sup>1</sup>Int erpretive Data: [place] Reference [place] Ranges : 0 - 7 days : 41 - 90 mg/dL 7 days - 150 yrs : 70 - 99 mg/dL (fasting), based on the clinical recommendations of the [place] [employer]. CHEMISTRY BUN 10.0 7 - 22 03/20 Normal [place] CHEMISTRY ALT 22.0 0 - 65 03/20 Normal [place] CHEMISTRY Potassium Lvl 4.1 3.5 - 5.1 03/20 Normal [place] CHEMISTRY Chloride Lvl 101.0 95 - 109 03/20 Normal [place] CHEMISTRY Sodium Lvl 137.0 135 - 145 03/20 Normal [place] CHEMISTRY Creatinine 0.6 0.5 - 1.4 03/20 Normal MH Lvl /2010 [place] CHEMISTRY Calcium Lvl 9.4 8.5 - 10.5 03/20 Normal [place] CHEMISTRY Albumin Lvl 3.8 3.5 - 5.0 03/20 Normal [place] CHEMISTRY AGAP 15.1 10.0 - 03/20 Normal MH 20.0 /2010 [place] CHEMISTRY A/G Ratio 1.0 0.7 - 1.6 03/20 Normal [place] CHEMISTRY Globulin 3.8 2.0 - 4.0 03/20 Normal [place] CHEMISTRY B/C Ratio 17.0 6 - 25 03/20 Normal [place] CHEMISTRY Amylase Lvl 35.0 25 - 115 03/20 Normal [place] CHEMISTRY Lipase Lvl 83.0 73 - 393 03/20 Normal [place] HEMATOLOGY MPV 9.6 7.4 - 10.4 03/20 Normal [place] HEMATOLOGY Platelet 233.0 133 - 450 03/20 Normal [place] HEMATOLOGY RDW 12.7 11.5 - 03/20 Normal MH 14.5 /2010 [place] HEMATOLOGY MCHC 33.7 32.0 - 03/20 Normal 36.0 /2010 [place] HEMATOLOGY Hgb 13.6 12.0 - 03/20 Normal 16.0 /2010 [place] HEMATOLOGY Hct 40.4 36.0 - 03/20 Normal 48.0 /2010 [place] HEMATOLOGY RBC 4.82 4.20 - 03/20 Normal MH 5.40 /2010 [place] HEMATOLOGY WBC 9.0 3.7 - 10.4 03/20 Normal [place] HEMATOLOGY MCH 28.2 27.0 - 03/20 Normal MH 31.0 /2010 [place] HEMATOLOGY MCV 83.8 81.0 - 03/20 Normal 99.0 /2010 [place] HEMATOLOGY Basophils # 0.1 0.0 - 0.2 03/20 Normal [place] HEMATOLOGY Lymphocytes # 1.8 1.0 - 5.5 03/20 Normal [place] HEMATOLOGY Segs-Bands # 6.3 1.5 - 8.1 03/20 Normal [place] HEMATOLOGY RBC Morph Normal 03/20 Normal (03/20/2011 11:35:00) ?? /2010 [place] HEMATOLOGY Eosinophils 2.4 0.0 - 4.0 03/20 Normal MH /2010 [place] HEMATOLOGY Basophils 0.9 0.0 - 1.0 03/20 Normal MH [place] HEMATOLOGY Lymphocytes 19.8 20.0 - 03/20 LOW MH 40.0 [place] HEMATOLOGY Monocytes 7.3 2.0 - 12.0 03/20 Normal [place] HEMATOLOGY Eosinophils # 0.2 0.0 - 0.5 03/20 Normal MH /2010 [place] HEMATOLOGY Monocytes # 0.7 0.0 - 0.8 03/20 Normal MH [place] HEMATOLOGY Segs 69.6 45.0 - 03/20 Normal MH 75.0 [place] HEMATOLOGY Plt Morph Normal 03/20 Normal MH (03/20/2011 11:35:00) ?? [place] URINALYSIS UA RBC 3-5 /HPF >0 - 2 03/20 ABN *ABN* [place] (03/20/2011 11:35:00) ?? [place] URINALYSIS UA Bacteria Moderate /HPF >None Seen 03/20 Normal MH (03/20/2011 11:35:00) ?? [place] URINALYSIS UA WBC 3-5 /HPF >None Seen 03/20 Normal MH (03/20/2011 11:35:00) ?? [place] URINALYSIS UA Sq Epi Many /LPF >Few 03/20 ABN *ABN* [place] (03/20/2011 11:35:00) ?? [place] URINALYSIS UA Leuk Est Negative >Negative 03/20 Normal MH (03/20/2011 11:35:00) ?? [place] URINALYSIS UA Nitrite Negative >Negative 03/20 Normal MH (03/20/2011 11:35:00) ?? [place] URINALYSIS UA Mucus Moderate /LPF >None Seen 03/20 ABN *ABN* [place] (03/20/2011 11:35:00) [place] URINALYSIS UA 1.0 0.1 - 1.0 03/20 Normal MH Urobilinogen /2010 [place] URINALYSIS UA Blood Small >Negative 03/20 ABN *ABN* /2010 [place] (03/20/2011 11:35:00) [place] URINALYSIS UA Bili Moderate >Negative 03/20 ABN MH *ABN* /2010 [place] (03/20/2011 11:35:00) [place] URINALYSIS UA Ketones 40 mg/dL >Negative 03/20 ABN MH *ABN* [place] (03/20/2011 11:35:00) ?? [place] URINALYSIS UA Glucose Negative >Negative 03/20 Normal MH (03/20/2011 11:35:00) ?? /2010 [place] URINALYSIS UA Spec Grav >=1.030 <<=1.030 03/20 ABN MH *ABN* [place] (03/20/2011 11:35:00) ?? [place] URINALYSIS UA Protein Trace >Negative 03/20 ABN MH *ABN* [place] (03/20/2011 11:35:00) ?? [place] URINALYSIS UA pH 6.0 5.0 - 8.0 03/20 Normal /2010 [place] URINALYSIS UA Turbidity Slight Cloudy >Clear 03/20 Normal MH (03/20/2011 11:35:00) ?? [place] URINALYSIS UA Color Yellow >Yellow 03/20 NA MH *NA* [place] (03/20/2011 11:35:00) ?? [place] Pathology Reports No Data Provided for This Section Diagnostic Reports No Data Provided for This Section Consultation Notes No Data Provided for This Section Discharge Summaries No Data Provided for This Section History and Physicals No Data Provided for This Section Vital Signs Vital Sign Value Date Comments Source Heart Rate 89.0 03/20/2011 [place] Diastolic (mm Hg) 55.0 03/20/2011 [place] Temperature Oral (F) 98.2 F 03/20/2011 [place] Respitory Rate 18.0 03/20/2011 [place] Systolic (mm Hg) 96.0 03/20/[address] [place] Height 175.26 cm 03/20/2011 [place] Weight 90.0 03/20/2011 [place] Diastolic (mm Hg) 72.0 03/20/2011 [place] and Systolic (mm Hg) 111.0 03/20/[address] [place] Resp[place] Rate 18.0 03/20/2011 [place] Heart Rate 89.0 03/20/2011 [place] Temperature Oral (F) 98.0 F 03/20/2011 [place] Encounters Location Location Encounter Encounter Reason Attending ADM DC Stat us Source Details Type Number For Provider Date Date Visit Emergency [id number] NISHANT PASCAL 03/20 03/20 Nishant ceballos [facility] [place] Procedures No Data Provided for This Section Assessment and Plan No Data Provided for This Section Plan of Care No Data Provided for This Section Social History No Data Provided for This Section Family History No Data Provided for This Section Advance Directives No Data Provided for This Section Functional Status No Data Provided for This Section
--- OUTSIDE RECORDS SUMMARY | 2020-08-16 19:04 | XMS REPORT | Clinical Summary ---
:1995 Author Organization [facility] Address [address] [place] [address] Care Team Providers Name Role Phone Unavailable Primary Care Provider Unavailable Allergies Active Allergy Reactions Severity Noted Date Comments Cottonseed Oil Swelling Medium 04/15/2020 Patient repor ts lips swelling around the age 11 when she used lip gloss containing cott onseed oil. Added to HT menu system. 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 hydrOXYzine (ATARAX) Take 50 mg by 0 Active 50 MG tablet mouth 3 (three) times daily as needed for Itching. lithium 300 MG capsule Take 300 mg by 0 Active mouth 3 (three) times daily with meals 1 capsule morning, 2 capsule at bedtime . haloperidoL (HALDOL) 5 Take 5 mg by 0 Active MG tablet mouth 2 (two) times daily. benztropine (COGENTIN) Take 0.5 mg by 0 Active 0.5 MG tablet mouth 2 (two) times daily. traZODone (DESYREL) Take 150 mg by 0 Active 150 MG tablet mouth nightly. gabapentin (NEURONTIN) Take 300 mg by 0 Active 300 MG capsule mouth 3 (three) times daily. acetaminophen Take 2 tablets 0 04/17/2020 Active (TYLENOL) 325 MG (650 mg total) tabletIndications: by mouth every Abdominal infection 4 (four) hours (HCC) as needed for Pain. ondansetron Take 1 tablet 10 tablet 0 04/17/2020 Act mikki (ZOFRAN-ODT) 4 MG (4 mg total) by disintegrating mouth every 8 tabletIndications: (eight) hours Abdominal infection as needed (HCC) (nausea/vomitin g). hyoscyamine Take 1 tablet 10 tablet 0 04/17/2020 Act mikki (LEVSIN/SL) 0.125 mg (0.125 mg SL tabletIndications: total) by mouth Abdominal infection every 6 (six) (HCC) hours as needed for Cramping. levoFLOXacin Take 1 tablet 3 tablet 0 04/18/2020 04/21/2020 E xpired (LEVAQUIN) 500 MG (500 mg total) tabletIndications: by mouth daily Abdominal infection for 3 days. (HCC) metroNIDAZOLE (FLAGYL) Take 1 tablet 10 tablet 0 04/17/2020 500 MG (500 mg total) tabletIndications: by mouth 3 Abdominal infection (three) times (HCC) daily for 3 days Starting tonight.. Active Problems Problem Noted Date RLQ abdominal pain 04/13/2020 Encounters Date Type Specialty Care Team Description 04/14/2020 Travel 04/13/2020 - Hospital General Internal Jeanmarie, Roid Abdominal infection (HCC) (Primary Dx); 04/17/2020 Encounter Medicine MD Alejandra Other appendicitis; Piyush Esparza disease (HCC); MD Matt RLQ abdominal pain Marion, Amanda Rashid MD after 08/16/2019 Social History Tobacco Use Types Packs/Day Years Used Date Current Every Day Smoker Cigarettes Smokeless Tobacco: Current User Sex Assigned at Date Recorded Not on file Last Filed Vital Signs Vital Sign Reading Time Taken Comments Blood Pressure 112/69 04/17/2020 10:41 AM CDT Pulse 74 04/17/2020 10:41 AM CDT Temperature 36.4 C (97.5 F) 04/17/2020 10:41 AM CDT Respiratory Rate 18 04/17/2020 10:41 AM CDT Oxygen Saturation 95% 04/17/2020 10:41 AM CDT Inhaled Oxygen Concentration - - Weight 107 kg (235 lb 14.3 oz) 04/13/2020 10:13 PM CDT Height - - Body Mass Index - - Plan of Treatment Health Maintenance Due Date Last Done Comments PNEUMOCOCCAL VACCINE 0-64 YRS (1 of 1 - PPSV23) 1999 DTAP/TDAP/TD VACCINES (1 - Tdap) 02/25/2000 HEPATITIS C SCREENING 2011 LIPID PANEL 2013 CERVICAL CANCER SCREENING PAP ONLY (Age 21-65) 2014 INFLUENZA VACCINE (#1) 2020 DEPRESSION SCREENING (12+) 06/25/2020 Procedures Procedure Name Priority Date/Time Associated Comments Diagnosis CBC W/PLT COUNT & Routine 04/17/2020 5:45 Result s for this AUTO DIFFERENTIAL AM CDT procedure are in the results section. BASIC METABOLIC PANEL Routine 04/17/2020 5:45 Re sults for this (7) AM CDT procedure are i n the results section. CBC W/PLT COUNT & Routine 04/17/2020 5:45 Result s for this AUTO DIFFERENTIAL AM CDT procedure are in the results section. CT ABDOMEN/PELVIS STAT 04/16/2020 3:45 Result s for this WITH IV CONTRAST PM CDT procedure a re in the results section. BASIC METABOLIC PANEL Routine 04/16/2020 5:27 Re sults for this (7) AM CDT procedure are i n the results section. CBC W/PLT COUNT & Routine 04/16/2020 5:24 Result s for this AUTO DIFFERENTIAL AM CDT procedure are in the results section. CBC W/PLT COUNT & Routine 04/16/2020 5:24 Result s for this AUTO DIFFERENTIAL AM CDT procedure are in the results section. US ENDOVAGINAL EV STAT 04/15/2020 8:33 Result s for this PM CDT procedure are i n the results section. CBC W/PLT COUNT & Routine 04/15/2020 6:17 Result s for this AUTO DIFFERENTIAL AM CDT procedure are in the results section. BASIC METABOLIC PANEL Routine 04/15/2020 6:17 Re sults for this (7) AM CDT procedure are i n the results section. CBC W/PLT COUNT & Routine 04/15/2020 6:17 Result s for this AUTO DIFFERENTIAL AM CDT procedure are in the results section. SCREEN, Routine 04/14/2020 6:39 Result s for this URINE AM CDT procedure are i n the results section. CBC W/PLT COUNT & Routine 04/14/2020 4:49 Result s for this AUTO DIFFERENTIAL AM CDT procedure are in the results section. ABORH, MANUAL STAT 04/14/2020 4:49 Results fo r this AM CDT procedure are i n the results section. CBC W/PLT COUNT & Routine 04/14/2020 4:49 Result s for this AUTO DIFFERENTIAL AM CDT procedure are in the results section. PROTHROMBIN TIME/INR Routine 04/14/2020 4:49 Res ults for this AM CDT procedure are i n the results section. HEPATIC FUNCTION Routine 04/14/2020 4:49 Results for this PANEL AM CDT procedure are i n the results section. BASIC METABOLIC PANEL Routine 04/14/2020 4:49 Re sults for this (7) AM CDT procedure are i n the results section. SARS-COV2/RT-PCR Routine 04/13/2020 11:49 Results for this ([facility] & REF LABS) PM CDT procedure are in the results section. TYPE AND SCREEN, Routine 04/13/2020 11:47 Results for this AUTOMATED PM CDT procedure are i n the results section. LACTIC ACID, VENOUS Routine 04/13/2020 11:47 Resu lts for this PM CDT procedure are i n the results section. FACTOR 9 ACTIVITY Routine 04/13/2020 11:47 Result s for this PM CDT procedure are i n the results section. VON WILLEBRAND FACTOR Routine 04/13/2020 11:47 Re sults for this (VWF) ANTIGEN PM CDT procedure are in the results section. FACTOR 8 ACTIVITY Routine 04/13/2020 11:47 Result s for this PM CDT procedure are i n the results section. VWF ACTIVITY Routine 04/13/2020 11:47 Results for this PM CDT procedure are i n the results section. after 08/16/2019 Results CBC with platelet count + automated diff (04/17/2020 5:45 AM CDT)Only the most recent of4 resultswithin the time period is included. Pathologist Sig nature WBC 11.7 (H) 3.5 - 10.5 [facility] K/L [facility] RBC 4.25 3.93 - 5.22 [facility] M/L [facility] Hemoglobin 11.7 11.2 - 15.7 [facility] GM/DL [facility] Hematocrit 37.1 34.1 - 44.9 % [facility] MCV 87.3 79.4 - 94.8 fL [facility] MCH 27.5 25.6 - 32.2 pg [facility] MCHC 31.5 (L) 32.2 - 35.5 [facility] GM/DL [facility] RDW 12.0 11.7 - 14.4 % [facility] Platelets 240 150 - 450 K/CU [facility] MPV 10.4 9.4 - 12.3 fL [facility] nRBC 0 0 - 0 /100 WBC [facility] % Neutros 70 % [facility] % Lymphs 18 % [facility] % Monos 8 % [facility] % Eos 3 % [facility] % Baso 0 % [facility] # Neutros 8.20 (H) 1.56 - 6.13 [facility] # Lymphs 2.05 1.18 - 3.74 [facility] # Monos 0.91 (H) 0.24 - 0.36 [facility] # Eos 0.37 (H) 0.04 - 0.36 [facility] # Baso 0.04 0.01 - 0.08 [facility] Immature 1 0 - 1 % [facility] Granulocytes-Relative [facility] Specimen Blood Performing Organization Address City/State/Zipcode Phone Number [facility] [address] [place] [address] CENTER Basic Metabolic Panel (04/17/2020 5:45 AM CDT)Only the most recent of4 results within the time period is included. Sodium 137 136 - 145 meq/L [facility] Potassium 3.7 3.5 - 5.1 meq/L [facility] Chloride 106 98 - 107 meq/L [facility] CO2 26 22 - 29 meq/L [facility] BUN 12 7 - 21 mg/dL [facility] Creatinine 0.77 0.57 - 1.25 [facility] mg/dL [facility] Glucose 92 70 - 105 mg/dL [facility] Calcium 8.7 8.4 - 10.2 [facility] mg/dL [facility] EGFR 90Comment: ESTIMATED mL/min/1.73 sq [facility] GFR IS NOT [facility] ACCURATE SOLDIER CREATININE CLEARANCE IN PREDICTING GLOMERULAR FILTRATION RATE. ESTIMATED GFR IS NOT APPLICABLE FOR DIALYSIS PATIENTS. Specimen Blood Narrative Performed At Motors Assembler ID - DOMENICO Peacock [facility] Performing Organization Address City/State/Zipcode Phone Number [facility] [address] [place] [address] abdomen/pelvis with IV contrast (04/16/2020 3:45 PM CDT) Specimen Narrative Performed At FINAL REPORT [employer] ABDOMINAL AND PELVIS CT DATED 04/16/2020 CLINICAL INFORMATION: RLQ abdominal pa in, appendicitis suspected (Age > 14y) TECHNIQUE: Axial images of the abdomen and pelvis were obtained from diaphragm to the pubic symphysis with GI and intravenous contrast. This exam was performed according to our departmental dose-optimization program, which include s automated exposure control, adjustment of the mA and/or kV according to patient size and/or use of interactive reconstruction technique. COMMENT: Liver and spleen are normal in size without focal abnormality. Gallbladder is contracted . No gallstone or biliary dilatation is noted. Pancreas and adrenals are unremarkable. Both kidneys are normal in size and func tioning. No hydronephrosis, hydroureter, urolithiasis is seen. The small and large bowel are unremarkab le. Appendix is normal in caliber. Uterus and ovaries are unremarkable. The urinary bladder is minimally distended. No mass, adenopathy or ascites is presen t. IMPRESSION: No CT evidence of appendic itis. Signed: Sharon Lott MD Report Verified Date/Time: 04/16/2020 15:56:02 Reading Location: [facility] B1 C013Y CT Body R eading Room Procedure Note Interface, External Ris In - 04/16/2020 3:58 PM CDT FINAL REPORT ABDOMINAL AND PELVIS CT DATED 04/16/2020 CLINICAL INFORMATION: RLQ abdominal alan n, appendicitis suspected (Age > 14y) TECHNIQUE: Axial images of the abdomen and pelvis were obtained from diaphragm to the pubic symphysis with GI and intravenous contrast. This exam was performed according to our departmental dose-optimization program, which include s automated exposure control, adjustment of the mA and/or kV according to patient size and/or use of interactive reconstruction technique. COMMENT: Liver and spleen are normal in size without focal abnormality. Gallbladder is contracted. No gallstone or biliary dilatation is noted. Pancreas and adrenals are unremarkable. Both kidneys are normal in size and func tioning. No hydronephrosis, hydroureter, urolithiasis is seen. The small and large bowel are unremarkab le. Appendix is normal in caliber. Uterus and ovaries are unremarkable. The urinary bladder is minimally distended. No mass, adenopathy or ascites is presen t. IMPRESSION: No CT evidence of appendici tis. Signed: Sharon Lott MD Report Verified Date/Time: 04/16/2020 1 5:56:02 Reading Location: [facility] B1 C013Y CT Body R eading Room Performing Organization Address City/State/Zipcode Phone Number [employer] US Endovaginal (04/15/2020 8:33 PM CDT) Specimen Narrative Performed At FINAL REPORT [employer] U/S, ENDOVAGINAL (EV) CLINICAL INDICATION: RLQ pain, rule out ovarian pathology COMPARISON: None TECHNIQUE: Ultrasound imaging of the p leidy was performed by transvaginal examination. Color and spec tral Doppler evaluation was also performed. FINDINGS: Uterus Size: 7.5 x 4.2 x 2 point cm Masses: None Endometrial thickness: 0.4 cm. Ec hogenic reflector within the endometrium suggestive of an IUD noted. Cervix: Unremarkable Adnexa: Right Ovary: Size: 3.6 x 3.0 x 1.9cm. Echogenicity: Normal Vascular flow: Preserved Left Ovary: Size: 3.3 x 3.2 x 1.6cm. Echogenicity: Normal with dominan t follicle measuring 7 mm. Vascular flow: Preserved Free fluid: None. Additional findings: None IMPRESSION: Unremarkable sonographic examination of the pelvis. No sonographic evidence of ovarian torsion. Signed: Zain Pearce MD Report Verified Date/Time: 04/15/2020 20:45:52 Procedure Note Interface, External Ris In - 04/15/2020 8:48 PM CDT FINAL REPORT U/S, ENDOVAGINAL (EV) CLINICAL INDICATION: RLQ pain, rule out ovarian pathology COMPARISON: None TECHNIQUE: Ultrasound imaging of the pe lvis was performed by transvaginal examination. Color and spec tral Doppler evaluation was also performed. FINDINGS: Uterus Size: 7.5 x 4.2 x 2 point cm Masses: None Endometrial thickness: 0.4 cm. Echo genic reflector within the endometrium suggestive of an IUD noted. Cervix: Unremarkable Adnexa: Right Ovary: Size: 3.6 x 3.0 x 1.9cm. Echogenicity: Normal Vascular flow: Preserved Left Ovary: Size: 3.3 x 3.2 x 1.6cm. Echogenicity: Normal with dominant follicle measuring 7 mm. Vascular flow: Preserved Free fluid: None. Additional findings: None IMPRESSION: Unremarkable sonographic examination of the pelvis. No sonographic evidence of ovarian torsion. Signed: Zain Pearce MD Report Verified Date/Time: 04/15/2020 2 0:45:52 Performing Organization Address City/State/Zipcode Phone Number RIS Screen, urine (04/14/2020 6:39 AM CDT) Pathologist Sig nature Preg Test, Ur Negative [facility] Specimen Urine - Urine specimen collection, clean catch (procedure) Performing Organization Address City/State/Zipcode Phone Number [address] [address] CENTER ABORH, manual (04/14/2020 4:49 AM CDT) Pathologist Sig nature ABO Grouping A [facility] DICAL SOLDIER Rh Factor POS [facility] Spec[facility] Blood Performing Organization Address City/[facility]/Zipcode Phone Number [facility] [address] [place] [address] Prothrombin time/INR (04/14/2020 4:49 AM CDT) Pathologist Sig nature Protime 14.6 (H) 11.9 - 14.2 seconds [facility] INR 1.17 <=5.90 [facility] Specimen Blood Narrative Performed At Effective 11/20/2018: PT Reference Range [facility] Change New: 11.9-14.2 Previous: 11.7-14.7 RECOMMENDED COUMADIN/WARFARIN INR THERAPY RANGES STANDARD DOSE: 2.0-3.0 Includes: PROPHYLAXIS for venous thrombosis, systemic embolization; TREATMENT for venous thrombosis and/or pulmonary embolus. HIGH RISK: Target INR is 2.5-3.5 for patients wiht mechanical heart valves. Performing Organization Address City/[facility]/Zipcode Phone Number [address] [address] CENTER Hepatic function panel (04/14/2020 4:49 AM CDT) Pathologist Sig nature Protein, Total 5.6 (L) 6.0 - 8.3 gm/dL [facility] Albumin 3.4 (L) 3.5 - 5.0 g/dL [facility] Total Bilirubin 0.5 0.2 - 1.2 mg/dL [facility] Bilirubin, Direct 0.2 0.1 - 0.5 mg/dL [facility] Alkaline Phosphatase 67 40 - 150 U/L [facility] AST 9 5 - 34 U/L [facility] ALT 8 6 - 55 U/L [facility] Specimen Blood Narrative Performed At Motors Assembler ID - SARAH [facility] Performing Organization Address City/State/Zipcode Phone Number [facility] [address] [place] [address] CENTER SARS-CoV2/RT-PCR (Asymptomatic ONLY) (04/13/2020 11:49 PM CDT) SARS-COV2/RT-PCR Negative Not Detected, [facility] Negative, See [facility] external report CENTER for linked test SARS-COV-2 [facility] PERFORMING LAB [facility] Specimen Other - Nasopharyngeal wall structure (b grace structure) Narrative Performed At Negative result for this test determines that [facility] SARS-CoV-2 RNA was not present in the specimen above the Limit of Detection (LOD). However, Negative results do not preclude SARS-CoV-2 infection and should not be used as the sole basis for treatment or patient management decisions. Negative results must be combined with clinical observations, patient history, and epidemiological information. A false negative result may occur if a specimen is improperly collected, transported or handled. A false negative result should be considered if patient's recent exposures or clinical presentation indicate that COVID-19 (SARS-CoV-2) is likely and diagnostic tests for other causes of illness are negative. Re-testing should be considered in cases of suspected false negatives. The limit of detection for this assay is 800 copies/mL. This SARS CoV-2 test is a real-time RT-PCR test intended for the qualitative detection of nucleic acid from SARS-CoV-2 in a nasopharyngeal swab specimen collected from individuals suspected of COVID-19 by their healthcare provider. This test has not been Food and Drug Administration (FDA) cleared or approved. This is a modified version of an approved Emergency Use Authorization (EUA) and is in the process of review by the FDA. Once authorized by the FDA, the issued EUA will be effective until the declaration that circumstances exist justifying the authorization of the emergency use of in vitro diagnostic tests for detection and/or diagnosis of COVID-19 is terminated under Section 564(b)(2) of the Act or the EUA is revoked under Section 564(g) of the Act. Fact Sheet for Healthcare Providers: https://www.[address]/sites/default/files/pro duct/documents/Fact_Sheet_HC_Providers_Lyra_SA RS-CoV-2.pdf Fact Sheet for Healthcare Patients: https://www.[employer]/sites/default/files/pro duct/documents/Fact_Sheet_Patients_Lyra_SARS-C oV-2.pdf Performing Laboratory: [address] [place] [address] Performing Organization Address City/State/Zipcode Phone Number [address] [address] SOLDIER VWF Activity (04/13/2020 11:47 PM CDT) Pathologist Sig nature VWF ACTIVITY [address] [facility] D Specimen Blood Narrative Performed At This result has an attachment that is no t available. Performing Organization Address City/[facility] Cent[facility] Phone Number [place] [address] [facility] [address] [employer] Type and screen, automated (04/13/2020 11:47 PM CDT) Pathologist Sig nature ABO/RH AUTOMATED A POSITIVE [facility] (BEAKER) [facility] Ab Scrn NEGATIVE [facility] Specimen Blood Performing Organization Address [facility]/Zipcode Phone Number [address] [address] von Willebrand Factor (VWF) Antigen (04/13/2020 11:47 PM CDT) Pathologist Sig nature VWF Antigen 66.0 50.0 - 160.0 % [facility] Specimen Blood Performing Organization Address [facility]/Zipcode Phone Number [address] [address] SOLDIER Lactic acid, venous (04/13/2020 11:47 PM CDT) Pathologist Sig nature Lactate, Venous 0.44 (L) 0.50 - 2.20 [facility] mmol/L [facility] Specimen Blood Narrative Performed At Motors Assembler ID - PIAYA L [facility] Performing Organization Address City/[facility]/Zipcode Phone Number [facility] [address] [place] [phone] CENTER Factor 9 activity (04/13/2020 11:47 PM CDT) Pathologist Sig nature Factor IX Activity 169.0 (H) 60.0 - 150.0 % [facility] Specimen Blood Performing Organization Address City/[facility]/Zipcode Phone Number [facility] [address] [place] [address] CENTER Factor 8 activity (04/13/2020 11:47 PM CDT) Pathologist Sig nature Factor VIII Activity 76.0 45.0 - 150.0 % [facility] Specimen Blood Performing Organization Address [facility] Centercode Phone Number [facility] [address] [place] [address] CENTER after 08/16/2019 Insurance Payer Benefit Plan / Subscriber ID Effective Dates Phone Addre ss Type Group PENDING EES PENDING 2020-Jayesh MEDICAID-OTHER MEDICAID nt MEDICAID MEDICAID OF [id number] 2020-Felicita ODELL t Advance Directives For more information, please contact: [phone] Code Status Date Activated Date Inactivated Comments Full Code 04/13/2020 10:05 PM 04/17/2020 6:03 PM This code status was determined by: Patient
--- OUTSIDE RECORDS SUMMARY | 2020-08-16 19:07 | XMS REPORT | Continuity of Care Document ---
:1995 Author Organization [facility] t Address [address] [place] [address] Care Team Providers Name Role Phone Alejandra Murry MD Attending Clinician Maame Long MD Attending Clinician Gay Marion MD Attending Clinician ALEJANDRA MURRY Attending Clinician Unavailable MAAME LONG Admitting Clinician Unavailable Payers Payer Name Policy Type Policy Effective Date Expiration Date Sour ce Number MEDICAIDMEDICAID OF [id number] 2020 XIOMARA sandoval Wendypatrick [id number] 00:00:00 - Medical 0-PresentMedicaid Center Problems Condition Condition Condition Status Onset Resolution Last Treating Co mments Source Name Details Category Date Date Treatment Clinician Date RLQ RLQ Disease Active 2019-[address] [facility] abdominal abdominal 0-20 [facility] - pain pain 00:00: Medical 00 [place] ABDOMINAL Diagnosis Active 2011-03-20 Memoria PAIN - 11:25:00 l 10:00: [place] ABDOMINAL 00 PAIN Active 03/20/2011 [place] Allergies, Adverse Reactions, Alerts Allergy Allergy Status Severity Reaction(s) Onset Inactive Treating Comm ents Source Name Type Date Date Clinician [place] Drug Active Swelling 2019-06 [facility] Allergy 0-22 [facility] - 00:00: lips Medical 00 swelling Center around the age 11 when she used lip gloss containin g [place] d oil. Added to HT menu system. Penicill Propensi Active Anaphylaxis 2019-[address] ins ty to 0-20 reports [facility] - adverse 00:00: episode Medical reaction 00 of Center s anaphylax is to penicilljaimie ns as an infant penicill penicill Active Rebeccaori a ins ins l [facility] Social History Social Habit Start Date Stop Date Quantity Comments Source Sex Assigned At [facility] History of Cigarette Smoker [facility] es - tobacco use [facility] Cent[facility] r Tobacco use and 2020-04-14 2020-04-[address] [facility] - exposure 00:00:00 00:00:00 [facility] Center Smoking Status Start Date Stop Date Source Current every day smoker 2020-04-14 00:00:00 [facility] Medications Ordered Filled Start Stop Current Ordering Indication Dosage Frequency Signature Comments Components Source Medication Medication Date Date Medication? Clinician (SIG) Name Name levoFLOXaci 2019-06 2020- Abdominal 500mg QD Take [address] [address] n 0-25 04-21 infection tablet [facility] - (LEVAQUIN) 00:00: 23:59 (HCC) (500 mg Me dical 500 MG 00 :00 total) by Center tablet mouth daily for 3 days. busPIRone 2019-06 Yes 5mg Q.[id number] Take [address] [facility] (BUSPAR) 5 0-24 [id number] by mouth 3 [facility] - MG tablet 16:03: 3D (three) Medic al 05 times Center daily. hydrOXYzine 2019-06 Yes 50mg Take [address] (ATARAX) 50 0-24 by mouth 3 Wendy kes - MG tablet 16:03: (three) Medic al 05 times Center daily as needed for Itching. lithium 300 2019- Yes 300mg Take [address] MG capsule 0-24 mg by [facility] - 16:03: mouth 3 Medical 05 (three) Center times daily with meals 1 capsule morning, 2 capsule at bedtime . haloperidoL 2019- Yes 5mg Q.5D Take [address] (HALDOL) 5 0-24 by mouth 2 Arlet es - MG tablet 16:03: (two) Medical 05 times Center daily. benztropine 2020- Yes .5mg Q.5D Take 0.[address] (COGENTIN) 0-24 mg by [facility]ukes - 0.5 MG 16:03: mouth 2 Medical tablet 05 (two) Center times daily. traZODone 2019- Yes 150mg QD Take [address] (DESYREL) 0-24 mg by [facility]ukes - 150 MG 16:03: mouth Medical tablet 05 nightly. Center gabapentin 2019-06 Yes 300mg Q.[id number] Take [address] (NEURONTIN) 0-24 [id number] mg by L ukes - 300 MG 16:03: 3D mouth 3 Medical capsule 05 (three) Center times daily. acetaminoph 2019-06 Yes Abdominal 650mg Take [address] [facility] en 0-24 infection tablets [facility] - (TYLENOL) 00:00: ([facility]) (650 mg Medi jonah 325 MG 00 total) by Center tablet mouth every 4 (four) hours as needed for Pain. ondansetron 2019-06 Yes Abdominal 4mg Take [address] (ZOFRAN-ODT 0-24 infection tablet (4 [facility] - ) 4 MG 00:00: ([facility]) mg total) Medic al disintegrat 00 by mouth Cent er ing tablet every 8 (eight) hours as needed (nausea/vo miting). hyoscyamine 2019-06 Yes Abdominal .125mg Take [address] (LEVSIN/SL) 0-24 infection tablet L ukes - 0.125 mg SL 00:00: ([facility]) (0.125 mg Medical tablet 00 total) by Center mouth every 6 (six) hours as needed for Cramping. metroNIDAZO 2019-06 2020- No Abdominal 500mg Q.[id number] Take [address] LE (FLAGYL) 0-24 10-27 infection [id number] tablet [facility] - 500 MG 00:00: 23:59 ([facility]) 3D (500 mg Medica l tablet 00 :00 total) by Center mouth 3 (three) times daily for 3 days Starting tonight.. lactulose Yes Jitendra Vincent 20 gm, 1 M emoria 20 g oral 9-26 ea, PO, l powder 20:03: TID, 42 [address] 38 ea, Substituti on Allowed, PDR/REC Omnipaque Yes Jitendra Vincent 30,000 mg, Memoria 300 9-26 100 mL, l 18:13: Route: IV, Bishop 00 Drug form: SOLN, ONCE, Start date: 03/20/11 13:13:00, Stop date: 03/20/11 13:13:00 hydromorpho No Jitendra Vincent 1 mg, 0.5 Memoria ne 9-26 mL, Route: l 17:57: IVP, Drug Bishop form: INJ, ONCE, Priority: STAT, Start date: 03/20/11 12:57:00, Stop date: 03/20/11 12:57:00 Mirena Yes Substituti Memor ia 03-20 on Allowed l 16:11: Wiliam 25 tramadol Yes Substituti Mem oria 03-20 on Allowed l 16:11: Wiliam 18 Unknown Yes Substituti Chaka martha Home 03-20 on Allowed l Medication 16:11: Wiliam 06 hydromorpho No Jitendra Vincent 1 mg, 0.5 Memoria ne 9-26 mL, Route: l 16:05: IVP, Drug Wiliam form: INJ, ONCE, Priority: STAT, Start date: 03/20/11 11:05:00, Stop date: 03/20/11 11:05:00 ondansetron No Jitendra Vincent 4 mg, 2 Memoria -26 mL, Route: l 16:05: IVP, Drug Bishop form: INJ, ONCE, Priority: STAT, Start date: 03/20/11 11:05:00, Stop date: 03/20/11 11:05:00 Sodium No Jitendra Melisa 1,000 mL, Mem oria Chloride 03-20 Rate: l 0.9% 16:05: 1,000 Bishop (Bolus) IV 00 ml/hr, 1,000 mL Infuse over: 1 hr, Route: IV, Total Volume: 1,000, Bolus Dose, Priority: STAT, Start date: 03/20/11 11:05:00, Duration: 1 doses or times, Stop date: 03/20/11 12:04:00 Saline No Jin Melisa 5 ml, Memoria Flush 0.9% 03-20 Route: l 16:05: IVP, Drug Bishop Form: INJ, PRN, PRN Line Flush, Start date: 03/20/11 11:05:00, Duration: 30 day, Stop date: 04/19/11 11:04:00 Vital Signs Vital Name Observation Time Observation Value Comments Source Systolic blood 2020-04-17 10:41:00 112 mm[Hg] [facility] Diastolic blood 2020-04-17 10:41:00 69 mm[Hg] [facility] S [facility] Heart rate 2020-04-17 10:41:00 74 /min [facility] Body temperature 2020-04-17 10:41:00 36.39 Melnaia [facility] Respiratory rate 2020-04-17 10:41:00 18 /min [facility] Oxygen saturation in 2020-04-17 10:41:00 95 /min [facility] - Arterial blood by Medical Ce nter Pulse oximetry Body weight 2020-04-13 22:13:00 107 kg [facility] Heart Rate 2011-03-20 20:17:00 [facility] Diastolic (mm Hg) 2011-03-20 20:17:00 Mem orial [facility] Temperature Oral (F) 2011-03-20 20:17:00 98.2 F [facility] Respitory Rate 2011-03-20 20:17:00 Memori al [facility] Systolic (mm Hg) 2011-03-20 20:17:00 Chaka ria [facility] Height 2011-03-20 16:01:00 175.26 cm [facility] Weight 2011-03-20 16:01:00 [facility] Diastolic (mm Hg) 2011-03-20 16:01:00 Mem orial [place] Systolic (mm Hg) 2011-03-20 16:01:00 Chaka rial [facility] Respitory Rate 2011-03-20 16:01:00 Memori al [address] Heart Rate 2011-03-20 16:01:00 [facility] Temperature Oral (F) 2011-03-20 16:01:00 98.0 F [facility] Procedures Procedure Date / Time Performed Performing Clinician Sour e CBC W/PLT COUNT & AUTO 2020-04-17 05:45:00 MarionAmanda [facility] BASIC METABOLIC PANEL 2020-04-17 05:45:00 MarionAmanda [facility] () [facility] CT ABDOMEN/PELVIS WITH 2020-04-16 15:45:00 Pam Ordaz [facility] - IV CONTRAST [facility] BASIC METABOLIC PANEL 2020-04-16 05:27:[address] CBC W/PLT COUNT & AUTO 2020-04-16 05:24:00 Marion, Amanda Gay [facility] US ENDOVAGINAL EV 2020-04-15 20:33:00 Mani Radha [facility] CBC W/PLT COUNT & AUTO 2020-04-15 06:17:00 Marion, Amanda Gay [facility] BASIC METABOLIC PANEL 2020-04-15 06:17:00 Marion, Amanda Gay [address] SCREEN, URINE 2020-04-14 06:39:00 Hernán Valdes [facility] BASIC METABOLIC PANEL 2020-04-14 04:49:[address] HEPATIC FUNCTION PANEL 2020-04-14 04:49:00 Piyush Long [facility] PROTHROMBIN TIME/INR 2020-04-14 04:49:00 Isaias [facility] CBC W/PLT COUNT & AUTO 2020-04-14 04:49:00 Piyush Long [facility] ABORH, MANUAL 2020-04-14 04:49:00 Eun Waggoner [facility] SARS-COV2/RT-PCR ([facility] & 2020-04-13 23:49[facility] ACTIVITY 2020-04-13 23:47:00 Isaias [facility] FACTOR 8 ACTIVITY 2020-04-13 23:47:00 [facility] [place] FACTOR 2020-04-13 23:47:00 [facility] ([facility] ANTIGEN [facility] FACTOR 9 ACTIVITY 2020-04-13 23:47:00 [facility] LACTIC ACID, VENOUS 2020-04-13 23:47:[address] [facility] S [facility] TYPE AND SCREEN, 2020-04-13 23:47:[address] - AUTOMATED [facility] Plan of Care Planned Activity Planned Date Details Comments Source Future Scheduled 2020-06-[address] [facility] - Test 00:00:00 (12+) [code = [facility] Center DEPRESSION SCREENING (12+)] Future Scheduled 2020 INFLUENZA VACCINE (#1) [facility] - Test 00:00:00 [code = INFLUENZA Medical Ce nter VACCINE (#1)] Future Scheduled [address] [facility] - Test 00:00:00 malignant neoplasm of [facility] cervix (procedure) [code = 929719192] Future Scheduled [address] [facility] - Test 00:00:00 (procedure) [code = [facility] Center [id number]] Future Scheduled 2011 HEPATITIS C [facility]CRE[facility]ING [facility] - Test 00:00:00 [code = HEPATITIS C Medical Center SCREENING] Future Scheduled 2000-02-25 DTAP/TDAP/TD VACCINES [facility] - Test 00:00:00 (1 - Tdap) [code = Medical C enter DTAP/TDAP/TD VACCINES (1 - Tdap)] Future Scheduled [address] [facility] - Test 00:00:00 0-64 YRS (1 of 1 - Medical C enter PPSV23) [code = PNEUMOCOCCAL VACCINE 0-64 YRS (1 of 1 - PPSV23)] Encounters Start End Encounter Admission Attending Care Care Encounter Source Date/Time Date/Time Type Type Clinicians Facility Department ID 2018-03-06 2018-03-09 Outpatient [facility] [id number] [address] [place] [address] 00:00:00 00:00:00 [facility] Results Test Description Test Time Test Comments Results Result Comments Source Basic Metabolic Panel 2020-04-17 06:54:00 Test Item Value Reference Range Interpretation Comme nts Sodium (test code = 137 meq/L 834-802 7888-2) Potassium (test code = 3.7 meq/L 3.5-5.1 2823-3) Chloride (test code = 106 meq/L 98-107 2075-0) CO2 (test code = 26 meq/L 22-29 2027-9) BUN (test code = 12 mg/dL 7- 3094-0) Creatinine (test code = 0.77 mg/dL 0.57-1.25 2160-0) Glucose (test code = 92 mg/dL 70-105 2345-7) Calcium (test code = 8.7 mg/dL 8.4-10.2 83218-8) EGFR (test code = 90 mL/min/1.73 [place] [address]-4) ACCURATE CREATININE ZACH BROCK IN PREDICTING GLOMERULAR FILT RATION RATE. ESTIMATED GFR IS NOT APPLICABLE FOR DIALYSIS PATIEN TS. FADI (test code = FADI) Barrel Coater ID - DOMENICO Peacock [facility] METABOLIC [id number] 06:54:00 Test Item Value Reference Range Interpretation Comments SODIUM (BEAKER) 137 meq/L 136-145 (test code = 381) POTASSIUM (BEAKER) 3.7 meq/L 3.5-5.1 (test code = 379) CHLORIDE (BEAKER) 106 meq/L 98-107 (test code = 382) CO2 (BEAKER) (test 26 meq/L 22-29 code = 355) BLOOD UREA NITROGEN 12 mg/dL 7-21 (BEAKER) (test code = 354) CREATININE (BEAKER) 0.77 mg/dL 0.57-1.25 (test code = 358) GLUCOSE RANDOM 92 mg/dL 70-105 (BEAKER) (test code = 652) CALCIUM (BEAKER) 8.7 mg/dL 8.4-10.2 (test code = 697) EGFR (BEAKER) (test 90 mL/min/1.73 ESTIMA JESSICA GFR IS code = 1092) sq m NOT ACCURATE CREATININE CLEARANCE IN PREDICTING GLOMERULAR FILTRATION RATE . ESTIMATED GFR I S NOT APPLICABLE FOR DIALYSIS PATIEN TS. Barrel Coater ID - DOMENICO [facility] with platelet count + automated [id number] 06:51:00 Test Item Value Reference Range Interpretation Comments WBC (test code = 6690-2) 11.7 See_Comment H [A utomated message] The system [employer] generated this result transmitted ref erence range: 3.5 - 10 .5 K/L. The refe rence range was not u sed to interpret this result as normal/abnor mal. RBC (test code = 789-8) 4.25 See_Comment [Au tomated message] The system [employer] generated this result transmitted ref erence range: 3.93 - 5 .22 M/L. The refe rence range was not u sed to interpret this result as normal/abnor mal. MCHC (test code = 786-4) 31.5 See_Comment L [A utomated message] The system [employer] generated this result transmitted ref erence range: 32.2 - 3 5.5 GM/DL. The refe rence range was not u sed to interpret this result as normal/abnor mal. Hematocrit (test code = 37.1 % 34.1-44.9 4544-3) MCV (test code = 787-2) 87.3 fL 79.4-94.8 MCH (test code = 785-6) 27.5 pg 25.6-32.2 RDW (test code = 788-0) 12.0 % 11.7-14.4 Platelets (test code = 240 See_Comment [Aut omated message] 777-3) The system [employer] generated this result transmitted ref erence range: 150 - 45 0 K/CU MM. The referen ce range was not u sed to interpret this result as normal/abnor mal. MPV (test code = 10.4 fL 9.4-12.3 66123-2) nRBC (test code = 413) 0 See_Comment [Aut omated message] The system [employer] generated this result transmitted ref erence range: 0 - 0 /1 00 WBC. The refere nce range was not u sed to interpret this result as normal/abnor mal. % Neutros (test code = 70 % 429) % Lymphs (test code = 18 % 430) % Monos (test code = 8 % 431) % Eos (test code = 432) 3 % % Baso (test code = 437) 0 % # Neutros (test code = 8.20 See_Comment H [Aut omated message] 670) The system [employer] generated this result transmitted ref erence range: 1.56 - 6 .13 K/L. The refe rence range was not u sed to interpret this result as normal/abnor mal. # Lymphs (test code = 2.05 See_Comment [Auto mated message] 414) The system [employer] generated this result transmitted ref erence range: 1.18 - 3 .74 K/L. The refe rence range was not u sed to interpret this result as normal/abnor mal. # Monos (test code = 0.91 See_Comment H [Autom ated message] 415) The system [employer] generated this result transmitted ref erence range: 0.24 - 0 .36 K/L. The refe rence range was not u sed to interpret this result as normal/abnor mal. # Eos (test code = 416) 0.37 See_Comment H [Au tomated message] The system [employer] generated this result transmitted ref erence range: 0.04 - 0 .36 K/L. The refe rence range was not u sed to interpret this result as normal/abnor mal. # Baso (test code = 417) 0.04 See_Comment [A utomated message] The system [employer] generated this result transmitted ref erence range: 0.01 - 0 .08 K/L. The refe rence range was not u sed to interpret this result as normal/abnor mal. Immature 1 % 0-1 Granulocytes-Relative (test code = 2801) Lab Interpretation (test Abnormal code = 55247-8) [facility] W/PLT COUNT & AUTO [id number] 06:51:00 Test Item Value Reference Range Interpretation Comments WHITE BLOOD CELL COUNT (BEAKER) 11.7 K/ L 3.5-10.5 H (test code = 775) RED BLOOD CELL COUNT (BEAKER) 4.25 M/ L 3.93-5.22 (test code = 761) HEMOGLOBIN (BEAKER) (test code = 11.7 GM/DL 11.2-15.7 410) HEMATOCRIT (BEAKER) (test code = 37.1 % 34.1-44.9 411) MEAN CORPUSCULAR VOLUME (BEAKER) 87.3 fL 79.4-94.8 (test code = 753) MEAN CORPUSCULAR HEMOGLOBIN 27.5 pg 25.6-32.2 (BEAKER) (test code = 751) MEAN CORPUSCULAR HEMOGLOBIN CONC 31.5 GM/DL 32.2-35.5 L (BEAKER) (test code = 752) RED CELL DISTRIBUTION WIDTH 12.0 % 11.7-14.4 (BEAKER) (test code = 412) PLATELET COUNT (BEAKER) (test 240 K/CU MM 150-450 code = 756) MEAN PLATELET VOLUME (BEAKER) 10.4 fL 9.4-12.3 (test code = 754) NUCLEATED RED BLOOD CELLS 0 /100 WBC 0-0 (BEAKER) (test code = 413) NEUTROPHILS RELATIVE PERCENT 70 % (BEAKER) (test code = 429) LYMPHOCYTES RELATIVE PERCENT 18 % (BEAKER) (test code = 430) MONOCYTES RELATIVE PERCENT 8 % (BEAKER) (test code = 431) EOSINOPHILS RELATIVE PERCENT 3 % (BEAKER) (test code = 432) BASOPHILS RELATIVE PERCENT 0 % (BEAKER) (test code = 437) NEUTROPHILS ABSOLUTE COUNT 8.20 K/ L 1.56-6.13 H (BEAKER) (test code = 670) LYMPHOCYTES ABSOLUTE COUNT 2.05 K/ L 1.18-3.74 (BEAKER) (test code = 414) MONOCYTES ABSOLUTE COUNT (BEAKER) 0.91 K/ L 0.24-0.36 H (test code = 415) EOSINOPHILS ABSOLUTE COUNT 0.37 K/ L 0.04-0.36 H (BEAKER) (test code = 416) BASOPHILS ABSOLUTE COUNT (BEAKER) 0.04 K/ L 0.01-0.08 (test code = 417) IMMATURE GRANULOCYTES-RELATIVE 1 % 0-1 PERCENT (BEAKER) (test code = 2801) CT, [id number] 15:56:00Please administer IV and PO contrastUnlisted Reason for Exam - Click Yes and Enter Reason Below->No [facility] 1995 Sex: FFINAL REPORT ABDOMINAL AND PELVIS CT DATED 04/16/2020 CLINICAL INFORM ATION: RLQ abdominal pain, appendicitis suspected (Age > 14y) TECHNIQUE: Axial images of the abdomen and pelvis were obtained from diaphragm to the pubic symphysis with GI and intravenous contrast. This exam was performed according to our departmental dose-optimization program, which includes automated exposure control, adjustment of the mA and/or kV according to patient size and/or use of interactive reconstruction technique. COMMENT: Liver and spleen are normal in size without focal abnormality. Gallbladder is contracted. No gallstone or biliary dilatation is noted. Pancreas and adrenals are unremarkable. Both kidneys are normal in size and functioning. No hydronephrosis, hydroureter, u rolithiasis is seen. The small and large bowel are unremarkable. Appendix is normal in caliber. Uterus and ovaries are unremarkable. The urinary bladder is minimally distended. No mass, adenopathy or ascites is present. IMPRESSION: No CT evidence of appendicitis. Signed: Sharon Lott VerifiedDate/Time: 04/16/2020 15:56:02 Reading Location: [facility] C013Y CT Body Reading Room CT abdomen/pelvis with IV [id number] 15:56:00Interface, External Ris In - 04/16/2020 3:58 PM CDTFINAL REPORT ABDOMINAL AND PELVIS CT DATED 04/16/2020 CLINICAL INFORMATION: RLQ abdominal pain, appendicitis suspected (Age > 14y) TECHNIQUE: Axial images of the abdomen and pelvis were obtained from diaphragm to the pubic symphysis with GI and intravenous contrast. This exam was performed according to our departmental dose-optimization program, which includes automated exposure control, adjustment of the mA and/or kV according to patient size and/or use of interactive reconstruction technique. COMMENT: Liver and spleen are normal in size without focal abnormality. Gallbladder is contracted. No gallstone or biliary dilatation is noted. Pancreas and adrenals are unremarkable. Both kidneys are normal in size and fu nctioning. No hydronephrosis, hydroureter, urolithiasis is seen. The small and large bowel are unremarkable. Appendix is normal in caliber. Uterus and ovaries are unremarkable. The urinary bladder is minimally distended. No mass, adenopathy or ascites is present. IMPRESSION: No CT evidence of appendicitis. Signed: Sharon Lott Verified Date/Time: 04/16/2020 15:56:02 Reading Location: [facility] [id number] CT Body Reading [facility] 2020-04-16 08:36:00 Test Item Value Reference Range Interpretation Comments [facility] ACTIVITY (test code = 0868707) [facility] [id number] 08:36:00 Test Item Value Reference Range Interpretation Comments VWF ACTIVITY (test code = 2600500) 99 CBC W/PLT COUNT & AUTO [id number] 06:57:00 Test Item Value Reference Range Interpretation Comments WHITE BLOOD CELL COUNT (BEAKER) 13.1 K/ L 3.5-10.5 H (test code = 775) RED BLOOD CELL COUNT (BEAKER) 4.31 M/ L 3.93-5.22 (test code = 761) HEMOGLOBIN (BEAKER) (test code = 12.1 GM/DL 11.2-15.7 410) HEMATOCRIT (BEAKER) (test code = 37.5 % 34.1-44.9 411) MEAN CORPUSCULAR VOLUME (BEAKER) 87.0 fL 79.4-94.8 (test code = 753) MEAN CORPUSCULAR HEMOGLOBIN 28.1 pg 25.6-32.2 (BEAKER) (test code = 751) MEAN CORPUSCULAR HEMOGLOBIN CONC 32.3 GM/DL 32.2-35.5 (BEAKER) (test code = 752) RED CELL DISTRIBUTION WIDTH 11.9 % 11.7-14.4 (BEAKER) (test code = 412) PLATELET COUNT (BEAKER) (test 251 K/CU MM 150-450 code = 756) MEAN PLATELET VOLUME (BEAKER) 10.7 fL 9.4-12.3 (test code = 754) NUCLEATED RED BLOOD CELLS 0 /100 WBC 0-0 (BEAKER) (test code = 413) NEUTROPHILS RELATIVE PERCENT 73 % (BEAKER) (test code = 429) LYMPHOCYTES RELATIVE PERCENT 17 % (BEAKER) (test code = 430) MONOCYTES RELATIVE PERCENT 6 % (BEAKER) (test code = 431) EOSINOPHILS RELATIVE PERCENT 3 % (BEAKER) (test code = 432) BASOPHILS RELATIVE PERCENT 0 % (BEAKER) (test code = 437) NEUTROPHILS ABSOLUTE COUNT 9.51 K/ L 1.56-6.13 H (BEAKER) (test code = 670) LYMPHOCYTES ABSOLUTE COUNT 2.24 K/ L 1.18-3.74 (BEAKER) (test code = 414) MONOCYTES ABSOLUTE COUNT (BEAKER) 0.82 K/ L 0.24-0.36 H (test code = 415) EOSINOPHILS ABSOLUTE COUNT 0.38 K/ L 0.04-0.36 H (BEAKER) (test code = 416) BASOPHILS ABSOLUTE COUNT (BEAKER) 0.04 K/ L 0.01-0.08 (test code = 417) IMMATURE GRANULOCYTES-RELATIVE 1 % 0-1 PERCENT (BEAKER) (test code = 2801) BASIC METABOLIC [id number] 06:56:00 Test Item Value Reference Range Interpretation Comments SODIUM (BEAKER) 137 meq/L 136-145 (test code = 381) POTASSIUM (BEAKER) 3.8 meq/L 3.5-5.1 (test code = 379) CHLORIDE (BEAKER) 105 meq/L 98-107 (test code = 382) CO2 (BEAKER) (test 25 meq/L 22-29 code = 355) BLOOD UREA NITROGEN 10 mg/dL 7-21 (BEAKER) (test code = 354) CREATININE (BEAKER) 0.75 mg/dL 0.57-1.25 (test code = 358) GLUCOSE RANDOM 64 mg/dL 70-105 L (BEAKER) (test code = 652) CALCIUM (BEAKER) 9.0 mg/dL 8.4-10.2 (test code = 697) EGFR (BEAKER) (test 93 mL/min/1.73 ESTIMA JESSICA GFR IS code = 1092) sq m NOT ACCURATE CREATININE CLEARANCE IN PREDICTING GLOMERULAR FILTRATION RATE . ESTIMATED GFR I S NOT APPLICABLE FOR DIALYSIS PATIEN TS. Barrel Coater ID - EDASIU/S, ENDOVAGINAL (EV)2020-04-15 20:45:00Reason for exam:- >RLQ pain, rule out ovarian pathology [facility] CENTERName: KAYE CORDERO : 1995 Sex: FFINAL REPORT U/S, ENDOVAGINAL (EV) CLINICAL INDICATION: RLQ pain, rule out ovarian pathology COMPARISON: None TECHNIQUE: Ultrasound imaging of the pelvis was performed by transvaginal examination. Color and spectral Doppler evaluation was also performed. FINDINGS: Uterus Size: 7.5 x 4.2 x 2 point cm Masses: None Endometrial thickness: 0.4 cm. Echogenic reflector within the endometrium suggestive of an [...] evidence of ovarian torsion. Signed: Zain Pearce MDReport Verified Date/Time: 04/15/2020 20:45:52 Electronically signed by: Omar CHAKRABORTY 04/15/2020 08:45 PMUS [id number] 20:45:00Interface, External Ris In - 04/15/2020 8:48 PM CDTFINAL REPORT U/S, ENDOVAGINAL (EV) CLINICAL INDICATION: RLQ pain, rule out ovarian pathology COMPARISON: None TECHNIQUE: Ultrasound imaging of the pelvis was performed by transvaginal examination. Color and spectral Doppler evaluation was also performed. FINDINGS: Uterus Size: 7.5 x 4.2 x 2 point cm Masses: NoneEndometrial thickness: 0.4 cm. Echogenic reflector within the endometrium suggestive of an IUD noted. Cervix: Unremarkable Adnexa: Right Ovary: Size: 3.6 x 3.0 x 1.9cm. Echogenicity: Normal Vascular flow: Preserved Left Ovary: Size: 3.3 x 3.2 x 1.6cm. Echogenicity: Normal withdominant follicle measuring 7 mm. Vascular flow: Preserved Free fluid: None. Additional findings: None IMPRESSION: Unremarkable sonographic examination of the pelvis. No sonographic evidence of ovarian torsion. Signed: Zain Pearce MDReport Verified Date/Time: 04/15/2020 20:45:52 [facility] METABOLIC [id number] 07:27:00 Test Item Value Reference Range Interpretation Comments SODIUM (BEAKER) 139 meq/L 136-145 (test code = 381) POTASSIUM (BEAKER) 3.8 meq/L 3.5-5.1 (test code = 379) CHLORIDE (BEAKER) 106 meq/L 98-107 (test code = 382) CO2 (BEAKER) (test 26 meq/L 22-29 code = 355) BLOOD UREA NITROGEN 8 mg/dL 7-21 (BEAKER) (test code = 354) CREATININE (BEAKER) 0.70 mg/dL 0.57-1.25 (test code = 358) GLUCOSE RANDOM 72 mg/dL 70-105 (BEAKER) (test code = 652) CALCIUM (BEAKER) 8.5 mg/dL 8.4-10.2 (test code = 697) EGFR (BEAKER) (test 100 mL/min/1.73 ESTIM ATED GFR IS code = 1092) sq m NOT ACCURATE CREATININE CLEARANCE IN PREDICTING GLOMERULAR FILTRATION RATE . ESTIMATED GFR I S NOT APPLICABLE FOR DIALYSIS PATIEN TS. Barrel Coater ID - DOMENICO [facility] W/PLT COUNT & AUTO [id number] 07:03:00 Test Item Value Reference Range Interpretation Comments WHITE BLOOD CELL COUNT (BEAKER) 11.3 K/ L 3.5-10.5 H (test code = 775) RED BLOOD CELL COUNT (BEAKER) 4.22 M/ L 3.93-5.22 (test code = 761) HEMOGLOBIN (BEAKER) (test code = 11.9 GM/DL 11.2-15.7 410) HEMATOCRIT (BEAKER) (test code = 37.6 % 34.1-44.9 411) MEAN CORPUSCULAR VOLUME (BEAKER) 89.1 fL 79.4-94.8 (test code = 753) MEAN CORPUSCULAR HEMOGLOBIN 28.2 pg 25.6-32.2 (BEAKER) (test code = 751) MEAN CORPUSCULAR HEMOGLOBIN CONC 31.6 GM/DL 32.2-35.5 L (BEAKER) (test code = 752) RED CELL DISTRIBUTION WIDTH 12.4 % 11.7-14.4 (BEAKER) (test code = 412) PLATELET COUNT (BEAKER) (test 246 K/CU MM 150-450 code = 756) MEAN PLATELET VOLUME (BEAKER) 11.0 fL 9.4-12.3 (test code = 754) NUCLEATED RED BLOOD CELLS 0 /100 WBC 0-0 (BEAKER) (test code = 413) NEUTROPHILS RELATIVE PERCENT 66 % (BEAKER) (test code = 429) LYMPHOCYTES RELATIVE PERCENT 23 % (BEAKER) (test code = 430) MONOCYTES RELATIVE PERCENT 7 % (BEAKER) (test code = 431) EOSINOPHILS RELATIVE PERCENT 4 % (BEAKER) (test code = 432) BASOPHILS RELATIVE PERCENT 1 % (BEAKER) (test code = 437) NEUTROPHILS ABSOLUTE COUNT 7.40 K/ L 1.56-6.13 H (BEAKER) (test code = 670) LYMPHOCYTES ABSOLUTE COUNT 2.56 K/ L 1.18-3.74 (BEAKER) (test code = 414) MONOCYTES ABSOLUTE COUNT (BEAKER) 0.73 K/ L 0.24-0.36 H (test code = 415) EOSINOPHILS ABSOLUTE COUNT 0.40 K/ L 0.04-0.36 H (BEAKER) (test code = 416) BASOPHILS ABSOLUTE COUNT (BEAKER) 0.06 K/ L 0.01-0.08 (test code = 417) IMMATURE GRANULOCYTES-RELATIVE 1 % 0-1 PERCENT (BEAKER) (test code = 2801) Factor 9 [id number] 13:15:00 Test Item Value Reference Range Interpretation Comments Factor IX Activity (test code = 169.0 % 60-150 H 3187-2) Lab Interpretation (test code = Abnormal 32311-6) [facility] [id number] 13:15:00 Test Item Value Reference Range Interpretation Comments FACTOR IX ACTIVITY (BEAKER) (test 169.0 % 60.0-150.0 H code = 666) Factor 8 [id number] 13:14:00 Test Item Value Reference Range Interpretation Comments Factor VIII Activity (test code = 76.0 % 45-150 3209-4) Lab Interpretation (test code = Normal 29970-2) [facility] [id number] 13:14:00 Test Item Value Reference Range Interpretation Comments FACTOR VIII ACTIVITY (BEAKER) (test 76.0 % 45.0-150.0 code = 663) von Willebrand Factor (VWF) [id number] 13:13:00 Test Item Value Reference Range Interpretation Comments VWF Antigen (test code = 09501-6) 66.0 % 50-160 Lab Interpretation (test code = Normal 38511-7) [facility] Center[facility]ON WILLEBRAND FACTOR (VWF) [id number] 13:13:00 Test Item Value Reference Range Interpretation Comments VWF ANTIGEN (BEAKER) (test code = 66.0 % 50.0-160.0 3215) SARS-CoV2/RT-PCR (Asymptomatic ONLY)2020-04-14 09:20:00 Test Item Value Reference Range Interpretation Comments SARS-COV2/RT-PCR Negative Not Detected, (test code = Negative, See 03874-4) external report for linked test SARS-COV-2 [facility] PERFORMING LAB (test code = 23649-8) FADI (test code = Negative result for this FADI) test determines that SARS-CoV-2 RNA was not present in the [...] of the Act. Fact Sheet for Healthcare Providers:https://www.[employer]/sites/default/f susan/product/documents/F act_Sheet_HC_Providers_L gym_SWKB-DtA-9.pdf Fact Sheet for Healthcare Patients:https://www.[employer]/sites/default/fi les/product/documents/Fa ct_Sheet_Patients_Lyra_S ARS-CoV-2.pdf Performing Laboratory:[facility] [place], [place] [address]marycarmen [address]chuga.[place], [place] [address] [place], [place] [address]ARS-COV2/RT-PCR ([facility])2020-04-14 09:20:00 Test Item Value Reference Range Interpretation Comments SARS-COV2/RT-PCR (test Negative Not Detected, Negative, code = 9867671) See external report for linked test SARS-COV-[address] [facility] (test code = 2747377) Negative result for this test determines that SARS-CoV-2 RNA was not present in the specimen above the Limit of Detection (LOD). However, Negative results do not preclude SARS-CoV-2 infection and should not be used as the sole basis for treatment or patient management decisions. Negative results mustbe combined with clinical observations, patient history, and epidemiological information. A false negative result may occur if a specimen is improperly collected, transported or handled. A false negative result should be considered if patient's recent exposures or clinical presentation indicate that COVID-19 (SARS-CoV-2) is likely and diagnostic tests for other causes of illness are negative. Re-testing should be considered in cases of suspected false negatives.The limit of detection for this assay is 800 copies/mL.This SARS CoV-2 test is a real-time RT-PCR test intended for the qualitative detection of nucleic acid from SARS-CoV-2 in a nasopharyngeal swab specimen collected from individuals susp ected of COVID-19 by their healthcare provider.This test has not been Food and Drug [...] is revoked under Section 564(g) of the Act.Fact Sheet for Healthcare Providers:https://www.[employer]/sites/default/files/product/documents/Fact_Shee w_IM_Scrkacodj_Qfzj_ACOV-BmQ-0.pdfFact Sheet for Healthcare Patients:https://www.[employer]/sites/default/files/product/ documents/Mbvk_Agwpm_Stsubkdg_Mdoq_UZYE-YpH-9.pdfPerforming Laboratory:[place] [address], [place] [address]Svgwmzrkn Screen, [id number] 07:08:00 Test Item Value Reference Range Interpretation Comments Preg Test, Ur (test code = 2112-1) Negative [facility] CenterPREG[facility]NCY SCREEN, [id number] 07:08:00 Test Item Value Reference Range Interpretation Comments TEST URINE (BEAKER) (test Negative code = 583) ABORH, [id number] 05:58:00 Test Item Value Reference Range Interpretation Comments ABO Grouping (test code = 2588) A Rh Factor (test code = 2589) POS [facility] CenterBASIC METABOLIC [id number] 05:42:00 Test Item Value Reference Range Interpretation Comments SODIUM (BEAKER) 140 meq/L 136-145 (test code = 381) POTASSIUM (BEAKER) 3.8 meq/L 3.5-5.1 (test code = 379) CHLORIDE (BEAKER) 107 meq/L 98-107 (test code = 382) CO2 (BEAKER) (test 28 meq/L 22-29 code = 355) BLOOD UREA NITROGEN 9 mg/dL 7-21 (BEAKER) (test code = 354) CREATININE (BEAKER) 0.76 mg/dL 0.57-1.25 (test code = 358) GLUCOSE RANDOM 91 mg/dL 70-105 (BEAKER) (test code = 652) CALCIUM (BEAKER) 7.9 mg/dL 8.4-10.2 L (test code = 697) EGFR (BEAKER) (test 91 mL/min/1.73 ESTIMA JESSICA GFR IS code = 1092) sq m NOT ACCURATE CREATININE CLEARANCE IN PREDICTING GLOMERULAR FILTRATION RATE . ESTIMATED GFR I S NOT APPLICABLE FOR DIALYSIS PATIEN TS. Barrel Coater ID - EDASIHepatic function [id number] 05:39:00 Test Item Value Reference Range Interpretation Comments Protein, Total (test 5.6 See_Comment L [Autom ated code = 2885-2) message] The system which generated this result transmit jessica reference range : 6.0 - 8.3 gm/dL . The reference range was not u sed to interpret th is result as normal/abnormal . Albumin (test code = 3.4 g/dL 3.5-5 L 75151-4) Total Bilirubin (test 0.5 mg/dL 0.2-1.2 code = 1974-2) Bilirubin, Direct 0.2 mg/dL 0.1-0.5 (test code = 1968-7) Alkaline Phosphatase 67 U/L 40-150 (test code = 6768-6) AST (test code = 9 U/L 5-34 1920-8) ALT (test code = 8 U/L 6-55 2-6) FADI (test code = FADI) Barrel Coater ID - EDASI Lab Interpretation Abnormal (test code = 10899-7) [facility] CenterHEPATIC FUNCTION [id number] 05:39:00 Test Item Value Reference Range Interpretation Comments TOTAL PROTEIN (BEAKER) (test code = 5.6 gm/dL 6.0-8.3 L 770) ALBUMIN (BEAKER) (test code = 1145) 3.4 g/dL 3.5-5.0 L BILIRUBIN TOTAL (BEAKER) (test code 0.5 mg/dL 0.2-1.2 = 377) BILIRUBIN DIRECT (BEAKER) (test 0.2 mg/dL 0.1-0.5 code = 706) ALKALINE PHOSPHATASE (BEAKER) (test 67 U/L 40-150 code = 346) AST (SGOT) (BEAKER) (test code = 9 U/L 5-34 353) ALT (SGPT) (BEAKER) (test code = 8 U/L 6-55 347) Barrel Coater ID - EDASICBC W/PLT COUNT & AUTO [id number] 05:32:00 Test Item Value Reference Range Interpretation Comments WHITE BLOOD CELL COUNT (BEAKER) 14.2 K/ L 3.5-10.5 H (test code = 775) RED BLOOD CELL COUNT (BEAKER) 4.00 M/ L 3.93-5.22 (test code = 761) HEMOGLOBIN (BEAKER) (test code = 11.3 GM/DL 11.2-15.7 410) HEMATOCRIT (BEAKER) (test code = 35.8 % 34.1-44.9 411) MEAN CORPUSCULAR VOLUME (BEAKER) 89.5 fL 79.4-94.8 (test code = 753) MEAN CORPUSCULAR HEMOGLOBIN 28.3 pg 25.6-32.2 (BEAKER) (test code = 751) MEAN CORPUSCULAR HEMOGLOBIN CONC 31.6 GM/DL 32.2-35.5 L (BEAKER) (test code = 752) RED CELL DISTRIBUTION WIDTH 12.5 % 11.7-14.4 (BEAKER) (test code = 412) PLATELET COUNT (BEAKER) (test 234 K/CU MM 150-450 code = 756) MEAN PLATELET VOLUME (BEAKER) 10.7 fL 9.4-12.3 (test code = 754) NUCLEATED RED BLOOD CELLS 0 /100 WBC 0-0 (BEAKER) (test code = 413) NEUTROPHILS RELATIVE PERCENT 60 % (BEAKER) (test code = 429) LYMPHOCYTES RELATIVE PERCENT 28 % (BEAKER) (test code = 430) MONOCYTES RELATIVE PERCENT 8 % (BEAKER) (test code = 431) EOSINOPHILS RELATIVE PERCENT 3 % (BEAKER) (test code = 432) BASOPHILS RELATIVE PERCENT 0 % (BEAKER) (test code = 437) NEUTROPHILS ABSOLUTE COUNT 8.53 K/ L 1.56-6.13 H (BEAKER) (test code = 670) LYMPHOCYTES ABSOLUTE COUNT 3.94 K/ L 1.18-3.74 H (BEAKER) (test code = 414) MONOCYTES ABSOLUTE COUNT (BEAKER) 1.06 K/ L 0.24-0.36 H (test code = 415) EOSINOPHILS ABSOLUTE COUNT 0.46 K/ L 0.04-0.36 H (BEAKER) (test code = 416) BASOPHILS ABSOLUTE COUNT (BEAKER) 0.06 K/ L 0.01-0.08 (test code = 417) IMMATURE GRANULOCYTES-RELATIVE 1 % 0-1 PERCENT (BEAKER) (test code = 2801) Prothrombin time/[id number] 05:24:00 Test Item Value Reference Interpretation Comments Range Protime (test code = 14.6 See_Comment H [Autom ated 5902-2) message] The system which generated this result transmitted reference range : 11.9 - 14.2 seconds. The reference range was not used to interpret this result as normal/abnormal . INR (test code = 1.17 See_Comment [Automated 6301-6) message] The system which generated this result transmitted reference range : <=5.90. The reference range was not used to interpret this result as normal/abnormal . FADI (test code = Effective 11/20/2018: FADI) PT Reference Range ChangeNew: 11.9-14.2 Previous: 11.7-14.7 RECOMMENDED COUMADIN/WARFARIN INR THERAPY RANGESSTANDARD DOSE: 2.0-3.0 Includes: PROPHYLAXIS for venous thrombosis, systemic embolization; TREATMENT for venous thrombosis and/or pulmonary embolus.HIGH RISK: Target INR is 2.5-3.5 for patients wiht mechanical heart valves. Lab Interpretation Abnormal (test code = 67923-1) [facility] CenterPROTHROMBIN TIME/[id number] 05:24:00 Test Item Value Reference Range Interpretation Comments PROTIME (BEAKER) (test code = 14.6 seconds 11.9-14.2 H 759) INR (BEAKER) (test code = 370) 1.17 <=5.90 Effective 11/20/2018: PT Reference Range ChangeNew: 11.9-14.2 Previous: 11.7- 14.7RECOMMENDED COUMADIN/WARFARIN INR THERAPY RANGESSTANDARD DOSE: 2.0-3.0 Includes: PROPHYLAXIS for venous thrombosis, systemic embolization; TREATMENT for venous thrombosis and/or pulmonary embolus.HIGH RISK: Target INR is2.5-3.5 for patients wiht mechanical heart valves.Type and screen, [id number] 01:10:00 Test Item Value Reference Range Interpretation Comments ABO/RH AUTOMATED (BEAKER) (test A POSITIVE code = 2260) Ab Scrn (test code = 890-4) NEGATIVE [facility] CenterLactic acid, [id number] 00:13:00 Test Item Value Reference Range Interpretation Comments Lactate, Venous (test code 0.44 mmol/L 0.5-2.2 L = 2872) FADI (test code = FADI) Barrel Coater ID Steffen JOHNSON L Lab Interpretation (test Abnormal code = 67536-6) [facility] CenterLACTIC ACID, [id number] 00:13:00 Test Item Value Reference Range Interpretation Comments LACTATE BLOOD VENOUS (2) (BEAKER) 0.44 mmol/L 0.50-2.20 L (test code = 2872) Barrel Coater ID - ALEX [id number] 16:35:00Negative (03/20/2011 11:35:00) ??[facility] FzorposHQPYPOLJV8039-97-26 16:35:0011.0[facility]annCHEMISTRY 2011-03-20 16:35:001.0[facility] DjzypvnQMRAOYOJG5375-38-95 16:35:0084.0[facility] ThgnklcKVRPNZHUL8574-92-33 16:35:007.6[facility] EqjozcdWLTLKVYAZ8436-98-89 16:35:0025.0[facility] QhwrxykRISJPENYF3387-81-17 16:35:0088.0[facility] YJWSOCRBR7820-20-51 16:35:0010.0[facility] CctfumiRWLBVACER1420-99-40 16:35:0022.0 [facility] LtnnmapBWSDLCHRL9176-22-24 16:35:004.1[facility]annCHEMISTRY 2011-03-20 16:35:35630.0[facility] NstdcjfGJUUISEOL9768-99-23 16:35:61967.0 [facility] SubsasrBOSDQBLCI6747-07-73 16:35:000.6[facility]annCHEMISTRY 2011-03-20 16:35:009.4[facility] IeetwamQDDBOCLFE0630-42-26 16:35:003.8[facility] UmrivmeHEMHOMVQE8494-28-62 16:35:0015.1[facility] XzmcnefKFFLBBQFX0292-01-58 16:35:00 Test Item Value Reference Range Interpretation Comments A/G Ratio (test code = A/G Ratio) 1.0 1 0.7-1.6 N [facility] RneidrpPFQBWFZWN6338-97-96 16:35:003.8[facility]annCHEMISTRY 2011-03-20 16:35:00 Test Item Value Reference Range Interpretation Comments B/C Ratio (test code = B/C Ratio) 17.0 1 6-25 N [facility] KuinpdaOSXGRCJLX3094-96-83 16:35:0035.0[facility]annCHEMISTRY 2011-03-20 16:35:0083.0[facility] SerxcsbHIRFCSEKTZ1432-93-33 16:35:009.[facility]orial ImnyineTNEKTGKVEP1764-79-22 16:35:44031.0[facility] AcdevfhNNCIPQYRKX7237-14-60 16:35:0012.7[facility] JaumlywHLIRFXSPAB9685-99-11 16:35:0033.7[facility] YPFUNFLKWF8753-04-78 16:35:0013.[facility] SevfiekMYDCUAUREO4237-80-59 16:35:00 40.4[facility] WirewgjXYKOJYJCOZ6884-13-48 16:35:004.82[facility]annHEMATOLOGY 2011-03-20 16:35:009.0[facility] QjlnxmkRCNIQJPWUZ1503-89-35 16:35:00 Test Item Value Reference Range Interpretation Comments MCH (test code = MCH) 28.2 pg 27.0-31.0 N [facility] YjiysuxGYXCORYQXY6813-90-86 16:35:0083.8[facility]annHEMATOLOGY 2011-03-20 16:35:000.1[facility] PkgmnysKHDEOMZETU0293-68-37 16:35:001.8[facility] JyuqafaFAVHPPROMO6881-39-93 16:35:006.3[facility] QcwxblyJGRMUGHUUH6819-20-48 16:35:00Normal (03/20/2011 11:35:00) ??[facility] ZmahlrbZOLVTMXFVD4734-51-78 16:35:002.4[facility] VsxvqfvUBXWFKPOKG1512-78-13 16:35:000.9[facility] GFQAMGFQIC4455-80-90 16:35:0019.8[facility] DaomikuCTRKXBDGYY3301-38-64 16:35:00 7.3[facility] MxhombqJQLRLZFBUF6116-61-76 16:35:000.2[facility] HermannHEMATOLOGY 2011-03-20 16:35:000.7[facility] ThdbkllTUICRYCOMY9437-08-89 16:35:0069.6[facility] QedslbvRJIYEHAVTR1332-87-42 16:35:00Normal (03/20/2011 11:35:00) ??[facility] YyctbbfQLXSPHEGZC5635-48-93 16:35:003-5 /HPF *ABN*(03/20/2011 11:35:00) ?? [facility] OuslucbMWKRUQHVWX7222-73-08 16:35:00Moderate /HPF (03/20/2011 11:35:00) ??[facility] YttettnBOCQPLCYVM2457-29-91 16:35:003-5 /HPF (03/20/2011 11:35:00) ?? [facility] JklnxxrLCUNDEUEGW5957-80-29 16:35:00Many /LPF *ABN*(03/20/2011 11:35:00) ??[facility] RivqacpFOJTMYQBXX1665-42-34 16:35:00Negative (03/20/2011 11:35:00) ??[facility] XgtngccKYHJTQVGUX2627-95-45 16:35:00Negative (03/20/2011 11:35:00) ??[facility] HospitalYmvriivIYXPZAWKLB7083-66-90 16:35:00Moderate /LPF *ABN*(03/20/2011 11:35:00) ??[facility] HospitalMlntqapBLBSDDPIXB2451-54-31 16:35:001.0 [facility] HospitalOqxjgulCOVLEVIVVS2144-69-43 16:35:00Small *ABN*(03/20/2011 11:35:00) ?? [facility] HospitalYesmaxxZNLRIPRJXB9605-51-85 16:35:00Moderate *ABN*(03/20/2011 11:35:00) ??[facility] HospitalBkolhpqWYYRRBFTSF3597-21-93 16:35:0040 mg/dL *ABN*(03/20/2011 11:35:00) ??[facility] HospitalEqpdrdhCOKAMDVSDC0490-11-72 16:35:00Negative (03/20/2011 11:35:00) ??[facility] HospitalPswixbcYAXOUZIRQO9591-78-03 16:35:00>=1.030 *ABN*(03/20/2011 11:35:00) ??[facility] HospitalWwdnsxpBLVMWAHZMH4821-97-44 16:35:00Trace *ABN*(03/20/2011 11:35:00) ??[facility] HospitalHewlqmnAOVBCABZPJ7163-96-05 16:35:00 Test Item Value Reference Range Interpretation Comments UA pH (test code = UA pH) 6.0 1 5.0-8.0 N [facility] HospitalTmkitesGRWUKCBNMT6539-06-56 16:35:00Slight Cloudy (03/20/2011 11:35:00) ??[facility] HospitalZpwajmtXDFLYFLIJO4446-50-52 16:35:00Yellow *NA*(03/20/2011 11:35:00) ??[facility]
--- NOTE | 2020-08-16 20:00 | ER ---
Nurse's Notes [facility] Name: Symone Pineda Age: 25 yrs Sex: Female : 1995 Arrival Date: 08/16/2020 Time: 19:07 Bed Waiting [facility] MD: Diagnosis: Presentation: 08/16 19:08 Chief complaint: Patient states: Lower abd pain with dysuria for 3 days. No fever. ll1 Coronavirus screen: Client denies travel out of the [place] in the last 14 days. At this time, the client does not indicate any symptoms associated with coronavirus-19. Ebola Screen: Patient denies travel to an Ebola-affected area in the 21 days before illness onset. Initial Sepsis Screen: Does the patient meet any 2 criteria? HR > 90 bpm. No. Patient's initial sepsis screen is negative. Does the patient have a suspected source of infection? Yes: Dysuria/Frequency/Urgency/UTI. Risk Assessment: Do you want to hurt yourself or someone else? Patient reports no desire to harm self or others. Onset of symptoms was August 13, 2020. 19:08 Method Of Arrival: Ambulatory ll1 19:08 Acuity: JUN 3 ll1 Historical: - Allergies: 19:09 PENICILLINS; ll1 19:09 cotton seed oil; ll1 - PMHx: 19:09 Depression; ibs; Bipolar disorder; Anxiety; Migraines; vonwildebrands; ll1 - PSHx: 19:09 ACL repair; ll1 - Immunization history:: Flu vaccine is up to date. - Social history:: Smoking status: Patient reports the use of cigarette tobacco products, smokes one pack cigarettes per day. Vital Signs: 19:08 BP 118 / 85; Pulse 98; Resp 18; Temp 98.2; Pulse Ox 98% ; Weight 92.99 kg; Height 5 ft. ll1 8 in. (172.72 cm); Pain 8/10; 19:08 Body Mass Index 31.17 (92.99 kg, 172.72 cm) 1 ED Course: 19:07 Patient arrived in ED. ll1 19:09 Triage completed. ll1 19:10 Arm band placed on. ll1 Administered Medications: No medications were administered Outcome: 20:00 Patient left the ED. 1 Signatures: Krystian, Lynsay, RN RN ll1 Corrections: (The following items were deleted from the chart) 19:10 19:08 BP 188 / 85; Pulse 110bpm; Resp 18bpm; Pulse Ox 98%; Temp 98.2F; 92.99 kg; Height ll1 5 ft. 8 in.; BMI: 31.1; Pain 8/10; ll1
[2020-08-16 20:32] VITALS: BP 118/85; TEMP 98.2; O2SAT 98
== END 2020-08-16 20:00 | disposition left against medical advice (07) ==
LOC: ER 19:00
DX: Z53.21 Procedure and treatment not carried out due to patient leaving prior to being seen by health care provider (principal)
CPT/HCPCS: 99281

== ENCOUNTER 2021-07-10 14:19 | Emergency (ER) | payer OTHER ==
--- OUTSIDE RECORDS SUMMARY | 2021-07-10 14:28 | XMS REPORT | Continuity of Care Document ---
:1995 Author Organization [facility] t Address [address] [place] [address] Care Team Providers Name Role Phone PCP, DOES NOT HAVE A Primary Care Physician Unavailable SAM CORTÉS Attending Clinician Unavailable YEFRI Attending Clinician Unavailable Jelly DIETZ Attending Clinician Unavailable Yefri PEREZ Attending Clinician 2, Lab Attending Clinician Unavailable Gael CABEZAS Attending Clinician Doctor Unassigned, Name Attending Clinician Unavailable NOHEMY Attending Clinician Unavailable SAM CORTÉS Admitting Clinician Unavailable YEFRI Admitting Clinician Unavailable NOHEMY Admitting Clinician Unavailable MAAME LONG Admitting Clinician Unavailable Payers Payer Name Policy Type Policy Number Effective Date Expiration Date Flavio DELONG [id number] 2016 HEALTH 00:00:00 Problems Condition Condition Condition Status Onset Resolution Last Treating Co mments Source Name Details Category Date Date Treatment Clinician Date Ventral Ventral Disease Active Overview: Univ ers hernia hernia -30 Formattin ity of without without 00:00: g of this [place] obstructio obstructio 00 note Me dical n or n or might be Branch gangrene gangrene different from the original. Added automatic ally from request for surgery [id number] Psychosis Psychosis Disease Active Uni vers 9-14 ity of 00:00: [address] Branch PTSD PTSD Disease Active Univers (post-trau (post-trau 9-14 it y of matic matic 00:00: [place] stress stress 00 Medical disorder) disorder) Bran ch Acute Acute Disease Active Univers midline midline 6-07 ity of thoracic thoracic 00:00: [place] back pain back pain 00 [facility] Seizure Seizure Disease Active Univers 6-06 ity of 00:00: [place] 00 Medical Branch Obesity Obesity Disease Active Univers (BMI (BMI 5-06 ity of 30-39.9) 30-39.9) 00:00: [place] [facility] Alcohol Alcohol Disease Active Univers dependence dependence 3-12 it y of 00:00: Medical Branch Opioid Opioid Disease Active Univers dependence dependence 3-12 it y of 00:00: [place] [facility] Suicide Suicide Disease Active Univers attempt attempt 3-12 ity of 00:00: [place] [facility] Sleep Sleep Disease Active Univers disorder disorder 4-25 ity of 00:00: [place] [facility] 41 weeks 41 weeks Disease Active 2014-06 Unive rs gestation gestation 2-14 ity of of of 00:00: [place] 00 [facility] Gastroente Gastroente Disease Active U shamika ritis ritis 9-18 ity of 00:00: [place] 00 [facility] IBS IBS Disease Active Univers (irritable (irritable 9-18 it y of bowel bowel 00:00: [place] syndrome) syndrome) 00 [facility] Von Von Disease Active Univers Willebrand Willebrand 9-18 it y of disease disease 00:00: [place] [facility] Uric acid Uric acid Disease Active Uni vers crystallur crystallur 9-18 it y of ia ia 00:00: [place] [facility] Penicillin Penicillin Disease Active U shamika allergy allergy 9-18 ity of 00:00: [place] 00 Medical Branch Dysmenorrh Dysmenorrh Disease Active U shamika ea ea 3-26 ity of 00:00: [place] 00 Medical Branch ADHD ADHD Disease Active Univers (attention (attention 3-05 it y of deficit deficit 00:00: [place] hyperactiv hyperactiv 00 Me dical ity ity Branch disorder) disorder) Contracept Contracept Disease Active U nivers ion ion 3-05 ity of management management [place] Irregular Irregular Disease Active Uni vers bleeding bleeding 3-05 ity of 00:00: [place] 00 Medical Branch Left Left Disease Active Univers ovarian ovarian 3-05 ity of cyst cyst 00:00: [place] 00 Medical Branch LLQ pain LLQ pain Disease Active Unive rs 3-05 ity of 00:00: [place] 00 Medical Branch ABDOMINAL Diagnosis Active 2011-03-20 [facility] PAIN 03-20 11:25:00 l 10:00: [place] ABDOMINAL 00 PAIN Active 03/20/2011 [facility] [place] Disease Resolve 2014-062017-01-03 2017-01-03 Univers arrhythmia arrhythmia d 2-15 00:00:00 16:57:57 ity of before the [place] the [place] onset of onset of 00 Medica l labor labor Branch Disease Resolve 2014-062017-01-03 2017-01-03 Univers contractio contractio d 0-29 00:00:00 16:57:57 ity of ns, third ns, third 00:00: [place] trimester trimester 00 [facility] Vaginal Vaginal Disease Resolve 2014-062017-01-03 2017-01-03 Univers candidiasi candidiasi d 0-29 00:00:00 16:57:57 ity of s s 00:00: [place] 00 [facility] Branch C. C. Disease Resolve 2017-01-03 2017-01-03 Univers difficile difficile d 9- 00:00:00 16:57:57 ity of diarrhea diarrhea 00:00: [place] 00 Medical Branch Supervisio Supervisio Disease Resolve 2017-01-03 2017-01-03 Univers n of high n of high d 03-12 00:00:00 16:57:57 ity of risk risk 00:00: [place] , , 00 Me dical antepartum antepartum Br anch , third , third trimester trimester Pelvic Pelvic Disease Resolve 2017-01-03 2017-01-03 Univers pain pain d 03-12 00:00:00 16:57:57 ity of affecting affecting 00:00[place] [facility] Bipolar Bipolar Disease Resolve 2017-01-03 2017-01-03 Univers disease disease d 9-18 00:00:00 16:57:57 ity of during during 00:00: [place] 00 Medi jonah in third in third Branch trimester trimester Altered Altered Disease Resolve 2008-0 2015-03-12 2015-03-12 Univers mental mental d 12-14 00:00:00 19:01:25 ity of status status 00:00: [place] 00 Medical [place] Allergies, Adverse Reactions, Alerts Allergy Allergy Status Severity Reaction(s) Onset Inactive Treating Comm ents Source Name Type Date Date Clinician COTTONSE Allergy Active Med [facility] 2019-06 [facility]ICILL Allergy Active High Anaphylaxis 2019-[address] [facility] 0[facility] [place] Propensi Active Anaphylaxis 2014- Peanut U nivers ed Oil ty to 627 butter, ity of adverse 00:00: processed [place] reaction 00 cheeses [facility] COTTONSE DRUG Active Anaphylaxis Uni vers ED OIL INGREDI 6-27 ity of 00:00: [place] 00 Medical [place] PENICILL Drug Active Anaphylaxis 2014-0 Uni vers INS Class 6-27 ity of 00:00: [place] 00 Medical [place] Penicill Propensi Active Anaphylaxis 2015-0 U nivers ins ty to 627 ity of adverse 00:00: [place] reaction 00 [facility] penicill penicill Active Memori a ins ins l [place] NO KNOWN Allergy Active [facility] Social History Social Habit Start Date Stop Date Quantity Comments Source Exposure to Not sure [facility] SARS-CoV-2 (event) [facility] Alcohol intake 2021-07-02 2021-07-02 0 /d University of 00:00:00 00:00:00 [facility] Tobacco Comment 2020-10-28 2020-10-28 started at age Unive rsity of 00:00:00 00:00:00 10 [facility] Cigarette 2017-10-03 2017-10-03 University of pack-years 00:00:00 00:00:00 [facility] Cigarettes smoked 2017-01-03 2017-01-03 Univers ity of current (pack per 00:00:00 00:00:00 [facility] ) - Reported Branch Tobacco use and 2017-01-03 2017-01-03 Current user Univers ity of exposure 00:00:00 00:00:00 [facility] History of tobacco 2015-03-13 Cigarette Smoker University of use 00:00:00 [facility] Sex [birth year] Universit y of 00:00:00 00:00:00 [facility] Smoking Status Start Date Stop Date Source Current every day smoker 2017-01-03 00:00:00 Uni versity of [facility] Medications Ordered Filled Start Stop Current Ordering Indication Dosage Frequency Signature Comments Components Source Medication Medication Date Date Medication? Clinician (SIG) Name Name PRAZOSIN Yes Take by Unive rs HCL 06 mouth. ity of (PRAZOSIN 17:53: [place] ORAL) 33 Medical Branch venlafaxine Yes 75mg Take 75 mg Univers XR (EFFEXOR 06-30 by mouth ity of XR) 75 mg 17:53: daily with [place] 24 hr 33 breakfast. Medical capsule Branch busPIRone Yes 7.5mg Take 7.5 Uni vers 7.5 mg 1-06 mg by ity of tablet 17:53: mouth 3 [place] 33 (three) Medical times Branch daily. traMADoL 50 2021- Yes [id number] 50mg Take 1 Uni vers mg tablet 06-30 tablet by ity of 00:00: 05:59 mouth [place] 00 :00 every 6 Medical (six) Branch hours as needed (breakthro ugh pain) for up to 5 days. Indication s: acute pain acetaminoph 2021- Yes [id number] 650mg Take 2 Univers en 06-30 tablets by ity of (TYLENOL) 00:00: 05:59 mouth [place] 325 mg 00 :00 every 6 Medical tablet (six) Branch hours for 4 days. ibuprofen 2021- Yes [id number] 600mg Take 1 Univers 600 mg 06-30 tablet by ity of tablet 00:00: 05:59 mouth [place] 00 :00 every 6 Medical (six) Branch hours for 4 days. gabapentin 2020-06 Yes 400mg Take 400 Un norma 400 mg 0-05 mg by ity of capsule 00:00: mouth 3 [place] 00 (three) Medical times Branch daily. traZODone 2020-06 Yes 100mg Take 100 Uni vers 100 mg 0-05 mg by ity of tablet 00:00: mouth as [place] 00 needed. Medical Branch foLIC acid Yes [id number] 1mg Take 1 Univers 1 mg tablet 6-08 tablet by ity of 00:00: mouth [place] 00 daily. Medical Branch tiZANidine Yes [id number] 2mg Take 1 Univers 2 mg 6-07 capsule by ity of capsule 00:00: mouth 3 [place] 00 (three) Medical times Branch daily as needed for Muscle Spasms. lamoTRIgine Yes [id number] 100mg Take 1 Univers 100 mg 6-07 tablet by ity of tablet 00:00: mouth [place] 00 every Medical morning. Branch ACETAMINOPH Yes Take by Un norma EN/DIPHENHY 5-06 mouth. ity of DRAMINE 20:31: [place] (TYLENOL PM 24 Medical ORAL) Branch Trazodone Yes Take by Univ ers 150 mg Tb24 5-06 mouth. ity of 20:31: [place] 24 Medical Branch PRAZOSIN Yes Take by Unive rs HCL 5-06 mouth. ity of (PRAZOSIN 20:31: [place] ORAL) 24 Medical Branch venlafaxine Yes 75mg Take 75 mg Univers XR (EFFEXOR 5-06 by mouth ity of XR) 75 mg 20:31: daily with [place] 24 hr 24 breakfast. Medical capsule Branch busPIRone Yes 7.5mg Take 7.5 Uni vers 7.5 mg 5-06 mg by ity of tablet 20:31: mouth 3 [place] 24 (three) Medical times Branch daily. HYDROcodone Yes 1{tbl} Take 1 Un norma -acetaminop 5-06 tablet by ity of hen 5-325 20:31: mouth [place] mg tablet 24 every 6 Medical (six) Branch hours as needed. ACETAMINOPH Yes Take by Un norma EN/DIPHENHY 5-06 mouth. ity of DRAMINE 20:31: [place] (TYLENOL PM 24 Medical ORAL) Branch Trazodone Yes Take by Univ ers 150 mg Tb24 5-06 mouth. ity of 20:31: [place] 24 Medical Branch PRAZOSIN Yes Take by Unive rs HCL 5-06 mouth. ity of (PRAZOSIN 20:31: [place] ORAL) 24 Medical Branch venlafaxine Yes 75mg Take 75 mg Univers XR (EFFEXOR 5-06 by mouth ity of XR) 75 mg 20:31: daily with [place] 24 hr 24 breakfast. Medical capsule Branch busPIRone Yes 7.5mg Take 7.5 Uni vers 7.5 mg 5-06 mg by ity of tablet 20:31: mouth 3 [place] 24 (three) Medical times Branch daily. HYDROcodone 2020-0 Yes 1{tbl} Take 1 Un norma -acetaminop 5-06 tablet by ity of hen 5-325 20:31: mouth [place] mg tablet 24 every 6 Medical (six) Branch hours as needed. ACETAMINOPH 0 Yes Take by Un norma EN/DIPHENHY 5-06 mouth. ity of DRAMINE 20:31: [place] (TYLENOL PM 24 Medical ORAL) Branch Trazodone Yes Take by Univ ers 150 mg Tb24 5-06 mouth. ity of 20:31: [place] 24 Medical Branch PRAZOSIN Yes Take by Unive rs HCL 5-06 mouth. ity of (PRAZOSIN 20:31: [place] ORAL) 24 Medical Branch venlafaxine Yes 75mg Take 75 mg Univers XR (EFFEXOR 5-06 by mouth ity of XR) 75 mg 20:31: daily with [place] 24 hr 24 breakfast. Medical capsule Branch busPIRone Yes 7.5mg Take 7.5 Uni vers 7.5 mg 5-06 mg by ity of tablet 20:31: mouth 3 [place] 24 (three) Medical times Branch daily. HYDROcodone 2020-0 Yes 1{tbl} Take 1 Un norma -acetaminop 5-06 tablet by ity of hen 5-325 20:31: mouth [place] mg tablet 24 every 6 Medical (six) Branch hours as needed. ACETAMINOPH 0 Yes Take by Un norma EN/DIPHENHY 5-06 mouth. ity of DRAMINE 20:31: [place] (TYLENOL PM 24 Medical ORAL) Branch Trazodone Yes Take by Univ ers 150 mg Tb24 5-06 mouth. ity of 20:31: [place] 24 Medical Branch PRAZOSIN 0 Yes Take by Unive rs HCL 5-06 mouth. ity of (PRAZOSIN 20:31: [place] ORAL) 24 Medical Branch venlafaxine Yes 75mg Take 75 mg Univers XR (EFFEXOR 5-06 by mouth ity of XR) 75 mg 20:31: daily with [place] 24 hr 24 breakfast. Medical capsule Branch busPIRone Yes 7.5mg Take 7.5 Uni vers 7.5 mg 5-06 mg by ity of tablet 20:31: mouth 3 [place] 24 (three) Medical times Branch daily. HYDROcodone Yes 1{tbl} Take 1 Un norma -acetaminop 5-06 tablet by ity of hen 5-325 20:31: mouth [place] mg tablet 24 every 6 Medical (six) Branch hours as needed. ACETAMINOPH Yes Take by Un norma EN/DIPHENHY 5-06 mouth. ity of DRAMINE 20:31: [place] (TYLENOL PM 24 Medical ORAL) Branch Trazodone Yes Take by Univ ers 150 mg Tb24 5-06 mouth. ity of 20:31: [place] 24 Medical Branch PRAZOSIN Yes Take by Unive rs HCL 5-06 mouth. ity of (PRAZOSIN 20:31: [place] ORAL) 24 Medical Branch venlafaxine Yes 75mg Take 75 mg Univers XR (EFFEXOR 5-06 by mouth ity of XR) 75 mg 20:31: daily with [place] 24 hr 24 breakfast. Medical capsule Branch busPIRone Yes 7.5mg Take 7.5 Uni vers 7.5 mg 5-06 mg by ity of tablet 20:31: mouth 3 [place] 24 (three) Medical times Branch daily. HYDROcodone Yes 1{tbl} Take 1 Un norma -acetaminop 5-06 tablet by ity of hen 5-325 20:31: mouth [place] mg tablet 24 every 6 Medical (six) Branch hours as needed. norethindro Yes Dysmenorrhe 1{tbl} Take 1 Univers ne 0.35 mg 5-06 a tablet by ity of tablet 00:00: mouth [place] 00 daily. Medical Branch norethindro Yes Dysmenorrhe 1{tbl} Take 1 Univers ne 0.35 mg 5-06 a tablet by ity of tablet 00:00: mouth 00 daily. Medical Branch norethindro 2020- Yes Dysmenorrhe 1{tbl} Take 1 Univers ne 0.35 mg 5-06 a tablet by ity of tablet 00:00: mouth daily. Medical Branch norethindro Yes Dysmenorrhe 1{tbl} Take 1 Univers ne 0.35 mg 5-06 a tablet by ity of tablet 00:00: mouth daily. Medical Branch norethindro Yes Dysmenorrhe 1{tbl} Take 1 Univers ne 0.35 mg 5-06 a tablet by ity of tablet 00:00: mouth daily. Medical Branch norethindro Yes [id number] 1{tbl} Take 1 Univers ne 0.35 mg 5-06 tablet by ity of tablet 00:00: mouth daily. Medical Branch gabapentin 2020-0 Yes 300mg Take 300 Un norma 300 mg 5-04 mg by ity of capsule 00:00: mouth (three) Medical times Branch daily. gabapentin 1-0 Yes 300mg Take 300 Un norma 300 mg 5-04 mg by ity of capsule 00:00: mouth (three) Medical times Branch daily. gabapentin 2021-0 Yes 300mg Take 300 Un norma 300 mg 5-04 mg by ity of capsule 00:00: mouth (three) Medical times Branch daily. gabapentin 2021-0 Yes 300mg Take 300 Un norma 300 mg 5-04 mg by ity of capsule 00:00: mouth (three) Medical times Branch daily. gabapentin 2021-0 Yes 300mg Take 300 Un norma 300 mg 5-04 mg by ity of capsule 00:00: mouth (three) Medical times Branch daily. QUEtiapine 2020-0 Yes 200mg Take 200 Un norma 200 mg 4-16 mg by ity of tablet 00:00: mouth at 00 bedtime. Medical Branch lamoTRIgine 2020-0 Yes 100mg Take 100 U nivers 100 mg 4-16 mg by ity of tablet 00:00: mouth daily. Medical Branch QUEtiapine 2020-0 Yes 200mg Take 200 Un norma 200 mg 4-16 mg by ity of tablet 00:00: mouth at [place] bedtime. Medical Branch lamoTRIgine 1-0 Yes 100mg Take 100 U nivers 100 mg 4-16 mg by ity of tablet 00:00: mouth [place] 00 daily. Medical Branch QUEtiapine 2021-0 Yes 200mg Take 200 Un norma 200 mg 4-16 mg by ity of tablet 00:00: mouth at [place] bedtime. Medical Branch lamoTRIgine 1-0 Yes 100mg Take 100 U nivers 100 mg 4-16 mg by ity of tablet 00:00: mouth [place] 00 daily. Medical Branch QUEtiapine 1-0 Yes 200mg Take 200 Un norma 200 mg 4-16 mg by ity of tablet 00:00: mouth at [place] bedtime. Medical Branch lamoTRIgine 1-0 Yes 100mg Take 100 U nivers 100 mg 4-16 mg by ity of tablet 00:00: mouth [place] 00 daily. Medical Branch QUEtiapine 1-0 Yes 200mg Take 200 Un norma 200 mg 4-16 mg by ity of tablet 00:00: mouth at [place] bedtime. Medical Branch lamoTRIgine 1-0 Yes 100mg Take 100 U nivers 100 mg 4-16 mg by ity of tablet 00:00: mouth [place] 00 daily. Medical Branch QUEtiapine 1-0 Yes 200mg Take 200 Un norma 200 mg 4-16 mg by ity of tablet 00:00: mouth at [place] bedtime. Medical Branch ondansetron 2018-0 Yes 4mg Take 1 Univ ers 4 mg 4-11 tablet by ity of disintegrat 00:00: mouth [place] ing tablet 00 every 8 Medica l (eight) Branch hours as needed for Nausea and Vomiting (N/V). loperamide 2018-0 Yes 2mg Take 1 Unive rs 2 mg 4-11 capsule by ity of capsule 00:00: mouth [place] 00 every 4 Medical (four) Branch hours as needed for Diarrhea. Not to exceed 16mg daily. ondansetron 2018-0 Yes 4mg Take 1 Univ ers 4 mg 4-11 tablet by ity of disintegrat 00:00: mouth [place] ing tablet 00 every 8 Medica l (eight) Branch hours as needed for Nausea and Vomiting (N/V). loperamide 2018-0 Yes 2mg Take 1 Unive rs 2 mg 4-11 capsule by ity of capsule 00:00: mouth [place] 00 every 4 Medical (four) Branch hours as needed for Diarrhea. Not to exceed 16mg daily. ondansetron 2018-0 Yes 4mg Take 1 Univ ers 4 mg 4-11 tablet by ity of disintegrat 00:00: mouth [place] ing tablet 00 every 8 Medica l (eight) Branch hours as needed for Nausea and Vomiting (N/V). loperamide 2018-0 Yes 2mg Take 1 Unive rs 2 mg 4-11 capsule by ity of capsule 00:00: mouth [place] 00 every 4 Medical (four) Branch hours as needed for Diarrhea. Not to exceed 16mg daily. ondansetron 2018-0 Yes 4mg Take 1 Univ ers 4 mg 4-11 tablet by ity of disintegrat 00:00: mouth [place] ing tablet 00 every 8 Medica l (eight) Branch hours as needed for Nausea and Vomiting (N/V). loperamide 2018-0 Yes 2mg Take 1 Unive rs 2 mg 4-11 capsule by ity of capsule 00:00: mouth [place] 00 every 4 Medical (four) Branch hours as needed for Diarrhea. Not to exceed 16mg daily. ondansetron 2018-0 Yes 4mg Take 1 Univ ers 4 mg 4-11 tablet by ity of disintegrat 00:00: mouth [place] ing tablet 00 every 8 Medica l (eight) Branch hours as needed for Nausea and Vomiting (N/V). loperamide 2018-0 Yes 2mg Take 1 Unive rs 2 mg 4-11 capsule by ity of capsule 00:00: mouth [place] 00 every 4 Medical (four) Branch hours as needed for Diarrhea. Not to exceed 16mg daily. ondansetron 2018-0 Yes 4mg Take 1 Univ ers 4 mg 4-11 tablet by ity of disintegrat 00:00: mouth [place] ing tablet 00 every 8 Medica l (eight) Branch hours as needed for Nausea and Vomiting (N/V). loperamide 2018-0 Yes 2mg Take 1 Unive rs 2 mg 4-11 capsule by ity of capsule 00:00: mouth [place] 00 every 4 Medical (four) Branch hours as needed for Diarrhea. Not to exceed 16mg daily. loperamide 2018-0 Yes 2mg Take 1 Unive rs 2 mg 4-11 capsule by ity of capsule 00:00: mouth [place] 00 every 4 Medical (four) Branch hours as needed for Diarrhea. Not to exceed 16mg daily. dextrometho 2017-0 Yes 10mL Take 10 mL Univers rphan-guaif 1-11 by mouth ity of enesin 00:00: every 6 [place] 10-100 mg/5 00 (six) Medical mL solution hours as Bran ch needed for Cough. dextrometho 2017-0 Yes 10mL Take 10 mL Univers rphan-guaif 1-11 by mouth ity of enesin 00:00: every 6 [place] 10-100 mg/5 00 (six) Medical mL solution hours as Bran ch needed for Cough. dextrometho 2017-0 Yes 10mL Take 10 mL Univers rphan-guaif 1-11 by mouth ity of enesin 00:00: every 6 [place] 10-100 mg/5 00 (six) Medical mL solution hours as Bran ch needed for Cough. dextrometho 2017-0 Yes 10mL Take 10 mL Univers rphan-guaif 1-11 by mouth ity of enesin 00:00: every 6 [place] 10-100 mg/5 00 (six) Medical mL solution hours as Bran ch needed for Cough. dextrometho 2017-0 Yes 10mL Take 10 mL Univers rphan-guaif 1-11 by mouth ity of enesin 00:00: every 6 [place] 10-100 mg/5 00 (six) Medical mL solution hours as Bran ch needed for Cough. dextrometho 2017-0 Yes 10mL Take 10 mL Univers rphan-guaif 1-11 by mouth ity of enesin 00:00: every 6 [place] 10-100 mg/5 00 (six) Medical mL solution hours as Bran ch needed for Cough. dextrometho 2017-0 Yes 10mL Take 10 mL Univers rphan-guaif 1-11 by mouth ity of enesin 00:00: every 6 [place] 10-100 mg/5 00 (six) Medical mL solution hours as Bran ch needed for Cough. traMADOL 50 0 Yes 50mg Take 1 Univ ers mg tablet 8-29 tablet by ity o f 00:00: mouth [place] 00 every 6 Medical (six) Branch hours as needed (pain). traMADOL 50 2017-0 Yes 50mg Take 1 Univ ers mg tablet 8-29 tablet by ity o f 00:00: mouth [place] 00 every 6 Medical (six) Branch hours as needed (pain). traMADOL 50 2016-0 Yes 50mg Take 1 Univ ers mg tablet 8-29 tablet by ity o f 00:00: mouth [place] 00 every 6 Medical (six) Branch hours as needed (pain). traMADOL 50 2017-0 Yes 50mg Take 1 Univ ers mg tablet 8-29 tablet by ity o f 00:00: mouth [place] 00 every 6 Medical (six) Branch hours as needed (pain). traMADOL 50 2017-0 Yes 50mg Take 1 Univ ers mg tablet 8-29 tablet by ity o f 00:00: mouth [place] 00 every 6 Medical (six) Branch hours as needed (pain). traMADOL 50 2016-0 Yes 50mg Take 1 Univ ers mg tablet 8-29 tablet by ity o f 00:00: mouth [place] 00 every 6 Medical (six) Branch hours as needed (pain). HYDROcodone Yes 1{tbl} Take 1 Un norma -acetaminop 7-12 tablet by ity of hen 5-325 17:11: mouth [place] mg tablet 55 every 6 Medical (six) Branch hours as needed. ACETAMINOPH 0 Yes Take by Un norma EN/DIPHENHY 7-12 mouth. ity of DRAMINE 17:09: [place] (TYLENOL PM 49 Medical ORAL) Branch Trazodone Yes Take by Univ ers 150 mg Tb24 7-12 mouth. ity of 17:04: [place] [id number] Medical Branch PRAZOSIN Yes Take by Unive rs HCL 7-12 mouth. ity of (PRAZOSIN 17:04: [place] ORAL) 36 Medical Branch venlafaxine Yes 75mg Take 75 mg Univers XR (EFFEXOR 7-12 by mouth ity of XR) 75 mg 17:04: daily with [place] 24 hr 36 breakfast. Medical capsule Branch busPIRone 2016-0 Yes 7.5mg Take 7.5 Uni vers 7.5 mg 7-12 mg by ity of tablet 17:04: mouth 3 [place] 36 (three) Medical times Branch daily. acetaminoph 2016-0 Yes 1{tbl} Take 1 Un norma en-codeine 7-04 tablet by ity of 300-30 mg 00:00: mouth [place] tablet 00 every 6 Medical (six) Branch hours as needed for Pain (scale 4-6). acetaminoph Yes 1{tbl} Take 1 Un norma en-codeine 7-04 tablet by ity of 300-30 mg 00:00: mouth [place] tablet 00 every 6 Medical (six) Branch hours as needed for Pain (scale 4-6). acetaminoph Yes 1{tbl} Take 1 Un norma en-codeine 7-04 tablet by ity of 300-30 mg 00:00: mouth [place] tablet 00 every 6 Medical (six) Branch hours as needed for Pain (scale 4-6). acetaminoph Yes 1{tbl} Take 1 Un norma en-codeine 7-04 tablet by ity of 300-30 mg 00:00: mouth [place] tablet 00 every 6 Medical (six) Branch hours as needed for Pain (scale 4-6). acetaminoph Yes 1{tbl} Take 1 Un norma en-codeine 7-04 tablet by ity of 300-30 mg 00:00: mouth [place] tablet 00 every 6 Medical (six) Branch hours as needed for Pain (scale 4-6). acetaminoph Yes 1{tbl} Take 1 Un norma en-codeine 7-04 tablet by ity of 300-30 mg 00:00: mouth [place] tablet 00 every 6 Medical (six) Branch hours as needed for Pain (scale 4-6). benzonatate Yes 100mg Take 1 Uni vers (TESSALON 6-24 capsule by ity of PERLES) 100 00:00: mouth 3 [place] as mg capsule 00 (three) Medica l times Branch daily as needed for Cough. azithromyci Yes Z-Dyllan = 2 U nivers n 6-24 tablets ity of (ZITHROMAX) 00:00: once a day [place] 250 mg 00 x 1 day, Medical tablet then 1 Branch tablet PO qd x 4 days benzonatate Yes 100mg Take 1 Uni vers (TESSALON 6-24 capsule by ity of PERLES) 100 00:00: mouth 3 [place] as mg capsule 00 (three) Medica l times Branch daily as needed for Cough. azithromyci Yes Z-Dyllan = 2 U nivers n 6-24 tablets ity of (ZITHROMAX) 00:00: once a day [place] 250 mg 00 x 1 day, Medical tablet then 1 Branch tablet PO qd x 4 days benzonatate 0 Yes 100mg Take 1 Uni vers (TESSALON 6-24 capsule by ity of PERLES) 100 00:00: mouth 3 [place] as mg capsule 00 (three) Medica l times Branch daily as needed for Cough. azithromyci Yes Z-Dyllan = 2 U nivers n 6-24 tablets ity of (ZITHROMAX) 00:00: once a day [place] 250 mg 00 x 1 day, Medical tablet then 1 Branch tablet PO qd x 4 days benzonatate 0 Yes 100mg Take 1 Uni vers (TESSALON 6-24 capsule by ity of PERLES) 100 00:00: mouth 3 [place] as mg capsule 00 (three) Medica l times Branch daily as needed for Cough. azithromyci Yes Z-Dyllan = 2 U nivers n 6-24 tablets ity of (ZITHROMAX) 00:00: once a day [place] 250 mg 00 x 1 day, Medical tablet then 1 Branch tablet PO qd x 4 days benzonatate 0 Yes 100mg Take 1 Uni vers (TESSALON 6-24 capsule by ity of PERLES) 100 00:00: mouth 3 [place] as mg capsule 00 (three) Medica l times Branch daily as needed for Cough. azithromyci Yes Z-Dyllan = 2 U nivers n 6-24 tablets ity of (ZITHROMAX) 00:00: once a day [place] 250 mg 00 x 1 day, Medical tablet then 1 Branch tablet PO qd x 4 days benzonatate 0 Yes 100mg Take 1 Uni vers (TESSALON 6-24 capsule by ity of PERLES) 100 00:00: mouth 3 Jared as mg capsule 00 (three) Medica l times Branch daily as needed for Cough. azithromyci Yes Z-Dyllan = 2 U nivers n 6-24 tablets ity of (ZITHROMAX) 00:00: once a day [place] 250 mg 00 x 1 day, Medical tablet then 1 Branch tablet PO qd x 4 days benzonatate 0 Yes 100mg Take 1 Uni vers (TESSALON 6-24 capsule by ity of PERLKATHY) 100 00:00: mouth 3 Jared as mg capsule 00 (three) Medica l times Branch daily as needed for Cough. ondansetron 2016-0 Yes 4mg Take 1 Univ ers (ZOFRAN, 5-20 tablet by ity of HYDROCHLORI 00:00: mouth [place] DE,) 4 mg 00 every 8 Medical tablet (eight) Branch hours as needed for Nausea and Vomiting (N/V). ondansetron 2016-0 Yes 4mg Take 1 Univ ers (ZOFRAN, 5-20 tablet by ity of HYDROCHLORI 00:00: mouth [place] DE,) 4 mg 00 every 8 Medical tablet (eight) Branch hours as needed for Nausea and Vomiting (N/V). ondansetron 2016-0 Yes 4mg Take 1 Univ ers (ZOFRAN, 5-20 tablet by ity of HYDROCHLORI 00:00: mouth [place] DE,) 4 mg 00 every 8 Medical tablet (eight) Branch hours as needed for Nausea and Vomiting (N/V). ondansetron 2016-0 Yes 4mg Take 1 Univ ers (ZOFRAN, 5-20 tablet by ity of HYDROCHLORI 00:00: mouth [place] DE,) 4 mg 00 every 8 Medical tablet (eight) Branch hours as needed for Nausea and Vomiting (N/V). ondansetron 2015-0 Yes 4mg Take 1 Univ ers (ZOFRAN, 5-20 tablet by ity of HYDROCHLORI 00:00: mouth [place],) 4 mg 00 every 8 Medical tablet (eight) Branch hours as needed for Nausea and Vomiting (N/V). ondansetron 2016-0 Yes 4mg Take 1 Univ ers (ZOFRAN, 5-20 tablet by ity of HYDROCHLORI 00:00: mouth [place] DE,) 4 mg 00 every 8 Medical tablet (eight) Branch hours as needed for Nausea and Vomiting (N/V). ondansetron 2016-0 Yes 4mg Take 1 Univ ers (ZOFRAN, 5-20 tablet by ity of HYDROCHLORI 00:00: mouth [place] DE,) 4 mg 00 every 8 Medical tablet (eight) Branch hours as needed for Nausea and Vomiting (N/V). lactulose 2010 Yes Jin Melisa 20 gm, 1 M emoria 20 g oral 9-26 ea, PO, l powder 20:03: TID, 42 [place] 38 ea, Substituti on Allowed, PDR/REC lactulose Yes Jin Melisa 20 gm, 1 M emoria 20 g oral 9-26 ea, PO, l powder 20:03: TID, 42 [place] 38 ea, Substituti on Allowed, PDR/REC lactulose Yes Jin Melisa 20 gm, 1 M emoria 20 g oral 9-26 ea, PO, l powder 20:03: TID, 42 [place] 38 ea, Substituti on Allowed, PDR/REC lactulose Yes Jin Melisa 20 gm, 1 M emoria 20 g oral 9-26 ea, PO, l powder 20:03: TID, 42 [place] 38 ea, Substituti on Allowed, PDR/REC lactulose Yes Jin Melisa 20 gm, 1 M emoria 20 g oral 9-26 ea, PO, l powder 20:03: TID, 42 [place] 38 ea, Substituti on Allowed, PDR/REC Omnipaque Yes Jin Melsia 30,000 mg, Memoria 300 9-26 100 mL, l 18:13: Route: IV, Drug form: SOLN, ONCE, Start date: 03/20/11 13:13:00, Stop date: 03/20/11 13:13:00 Omnipaque Yes Jin Melisa 30,000 mg, Mem[facility] 300 9-26 100 mL, l 18:13: Route: IV, Drug form: SOLN, ONCE, Start date: 03/20/11 13:13:00, Stop date: 03/20/11 13:13:00 Omnipaque Yes Jin Melisa 30,000 mg, Mem[facility] 300 9-26 100 mL, l 18:13: Route: IV, Drug form: SOLN, ONCE, Start date: 03/20/11 13:13:00, Stop date: 03/20/11 13:13:00 Omnipaque Yes Jin Melisa 30,000 mg, Memoria 300 9-26 100 mL, l 18:13: Route: IV, Drug form: SOLN, ONCE, Start date: 03/20/11 13:13:00, Stop date: 03/20/11 13:13:00 Omnipaque 2010- Yes Jin Melisa 30,000 mg, Mem[facility] 300 9-26 100 mL, l 18:13: Route: IV, [place] 00 Drug form: SOLN, ONCE, Start date: 03/20/11 13:13:00, Stop date: 03/20/11 13:13:00 hydromorpho No Jin Melisa 1 mg, 0.5 Memoria ne 9-26 mL, Route: l 17:57: IVP, Drug [place] form: INJ, ONCE, Priority: STAT, Start date: 03/20/11 12:57:00, Stop date: 03/20/11 12:57:00 hydromorpho No Jin Melisa 1 mg, 0.5 Memoria ne 9-26 mL, Route: l 17:57: IVP, Drug [place] form: INJ, ONCE, Priority: STAT, Start date: 03/20/11 12:57:00, Stop date: 03/20/11 12:57:00 hydromorpho No Jin Melisa 1 mg, 0.5 Memoria ne 9-26 mL, Route: l 17:57: IVP, Drug [place] form: INJ, ONCE, Priority: STAT, Start date: 03/20/11 12:57:00, Stop date: 03/20/11 12:57:00 hydromorpho No Jin Melisa 1 mg, 0.5 Memoria ne 9-26 mL, Route: l 17:57: IVP, Drug [place] form: INJ, ONCE, Priority: STAT, Start date: 03/20/11 12:57:00, Stop date: 03/20/11 12:57:00 hydromorpho No Jin Melisa 1 mg, 0.5 Memoria ne 9-26 mL, Route: l 17:57: IVP, Drug [place] form: INJ, ONCE, Priority: STAT, Start date: 03/20/11 12:57:00, Stop date: 03/20/11 12:57:00 Mirena Yes Substituti Memor ia 9-26 on Allowed l 16:11: [place]am 25 Mirena 2011-0 Yes Substituti Memor ia 9- on Allowed l 16:11: [place] Mirena Yes Substituti Memor ia - on Allowed l 16:11: [place] Mirena Yes Substituti Memor ia - on Allowed l 16:11: [place] Mirena Yes Substituti Memor ia 03-20 on Allowed l 16:11: [place] tramadol Yes Substituti Mem oria 03-20 on Allowed l 16:11: [place] tramadol Yes Substituti Mem oria 03-20 on Allowed l 16:11: [place] tramadol Yes Substituti Mem oria 03-20 on Allowed l 16:11: [place] tramadol Yes Substituti Mem oria 03-20 on Allowed l 16:11: [place] tramadol Yes Substituti Mem oria 03-20 on Allowed l 16:11: W[place]am Hernandez Unknown Yes Substituti Chaka martha Home 03-20 on Allowed l Medication 16:11: W[place]am Unknown Yes Substituti [facility] 03-20 on Allowed l Medication 16:11: [place] Unknown Yes Substituti Chaka mar[facility] 03-20 on Allowed l Medication 16:11: Wiliam Unknown Yes Substituti Chaka martha Home 03-20 on Allowed l Medication 16:11: Wiliam Unknown Yes Substituti Chaka martha Home 03-20 on Allowed l Medication 16:11: [place] hydromorpho No Jitendra Vincent 1 mg, 0.5 Memoria ne 9-26 mL, Route: l 16:05: IVP, Drug form: INJ, ONCE, Priority: STAT, Start date: 03/20/11 11:05:00, Stop date: 03/20/11 11:05:00 ondansetron No Jitendra Vincent 4 mg, 2 Memoria 9-26 mL, Route: l 16:05: IVP, Drug form: INJ, ONCE, Priority: STAT, Start date: 03/20/11 11:05:00, Stop date: 03/20/11 11:05:00 Sodium No Jitendra Vincent 1,000 mL, Mem oria Chloride 9-26 Rate: l 0.9% 16:05: 1,000 [place] (Bolus) IV 00 ml/hr, 1,000 mL Infuse over: 1 hr, Route: IV, Total Volume: 1,000, Bolus Dose, Priority: STAT, Start date: 03/20/11 11:05:00, Duration: 1 doses or times, Stop date: 03/20/11 12:04:00 Saline No Jitendra Vincent 5 ml, Memoria Flush 0.9% 9-26 Route: l 16:05: IVP, Drug [place] 00 Form: INJ, PRN, PRN Line Flush, Start date: 03/20/11 11:05:00, Duration: 30 day, Stop date: 04/19/11 11:04:00 hydromorpho Kya Vincent 1 mg, 0.5 Memoria ne 9-26 mL, Route: l 16:05: IVP, Drug [place] 00 form: INJ, ONCE, Priority: STAT, Start date: 03/20/11 11:05:00, Stop date: 03/20/11 11:05:00 ondansetron Kya Vincent 4 mg, 2 Memoria 9-26 mL, Route: l 16:05: IVP, Drug [place] 00 form: INJ, ONCE, Priority: STAT, Start date: 03/20/11 11:05:00, Stop date: 03/20/11 11:05:00 Sodium No Jitendra Vincent 1,000 mL, Mem oria Chloride 9-26 Rate: l 0.9% 16:05: 1,000 [place] (Bolus) IV 00 ml/hr, 1,000 mL Infuse over: 1 hr, Route: IV, Total Volume: 1,000, Bolus Dose, Priority: STAT, Start date: 03/20/11 11:05:00, Duration: 1 doses or times, Stop date: 03/20/11 12:04:00 Saline No Jitendra Vincent 5 ml, Memoria Flush 0.9% 9-26 Route: l 16:05: IVP, Drug [place] 00 Form: INJ, PRN, PRN Line Flush, Start date: 03/20/11 11:05:00, Duration: 30 day, Stop date: 04/19/11 11:04:00 hydromorpho 2010- No Jitendra Melisa 1 mg, 0.5 Memoria ne 9-26 mL, Route: l 16:05: IVP, Drug [place] 00 form: INJ, ONCE, Priority: STAT, Start date: 03/20/11 11:05:00, Stop date: 03/20/11 11:05:00 ondansetron No Jin Melisa 4 mg, 2 Memoria 9-26 mL, Route: l 16:05: IVP, Drug [place] 00 form: INJ, ONCE, Priority: STAT, Start date: 03/20/11 11:05:00, Stop date: 03/20/11 11:05:00 Sodium 2010- No Jin Melisa 1,000 mL, Mem oria Chloride 03-20 Rate: l 0.9% 16:05: 1,000 [place] (Bolus) IV 00 ml/hr, 1,000 mL Infuse over: 1 hr, Route: IV, Total Volume: 1,000, Bolus Dose, Priority: STAT, Start date: 03/20/11 11:05:00, Duration: 1 doses or times, Stop date: 03/20/11 12:04:00 Saline No Jitendra Melisa 5 ml, Memoria Flush 0.9% 03-20 Route: l 16:05: IVP, Drug [place] 00 Form: INJ, PRN, PRN Line Flush, Start date: 03/20/11 11:05:00, Duration: 30 day, Stop date: 04/19/11 11:04:00 hydromorpho 0 No Jitendra Melisa 1 mg, 0.5 Memoria ne 9-26 mL, Route: l 16:05: IVP, Drug [place] 00 form: INJ, ONCE, Priority: STAT, Start date: 03/20/11 11:05:00, Stop date: 03/20/11 11:05:00 ondansetron 0 No Jin Melisa 4 mg, 2 Memoria 9-26 mL, Route: l 16:05: IVP, Drug [place] 00 form: INJ, ONCE, Priority: STAT, Start date: 03/20/11 11:05:00, Stop date: 03/20/11 11:05:00 Sodium No Jitendra Melisa 1,000 mL, Mem oria Chloride 9-26 Rate: l 0.9% 16:05: 1,000 [place] (Bolus) IV 00 ml/hr, 1,000 mL Infuse over: 1 hr, Route: IV, Total Volume: 1,000, Bolus Dose, Priority: STAT, Start date: 03/20/11 11:05:00, Duration: 1 doses or times, Stop date: 03/20/11 12:04:00 Saline No Jitendra Melisa 5 ml, Memoria Flush 0.9% 9-26 Route: l 16:05: IVP, Drug [place] 00 Form: INJ, PRN, PRN Line Flush, Start date: 03/20/11 11:05:00, Duration: 30 day, Stop date: 04/19/11 11:04:00 hydromorpho No Jitendra Vincent 1 mg, 0.5 Memoria ne 9-26 mL, Route: l 16:05: IVP, Drug [place] 00 form: INJ, ONCE, Priority: STAT, Start date: 03/20/11 11:05:00, Stop date: 03/20/11 11:05:00 ondansetron No Jitendra Vincent 4 mg, 2 Memoria 9-26 mL, Route: l 16:05: IVP, Drug [place] 00 form: INJ, ONCE, Priority: STAT, Start date: 03/20/11 11:05:00, Stop date: 03/20/11 11:05:00 Sodium No Jitendra Vincent 1,000 mL, Mem oria Chloride 9-26 Rate: l 0.9% 16:05: 1,000 [place] (Bolus) IV 00 ml/hr, 1,000 mL Infuse over: 1 hr, Route: IV, Total Volume: 1,000, Bolus Dose, Priority: STAT, Start date: 03/20/11 11:05:00, Duration: 1 doses or times, Stop date: 03/20/11 12:04:00 Saline No Jitendra Vincent 5 ml, Memoria Flush 0.9% 9-26 Route: l 16:05: IVP, Drug [place] 00 Form: INJ, PRN, PRN Line Flush, Start date: 03/20/11 11:05:00, Duration: 30 day, Stop date: 04/19/11 11:04:00 Vital Signs Vital Name Observation Time Observation Value Comments Source WEIGHT 2020-04-13 22:13:00 107 kg Systolic blood 2020-10-28 20:22:00 114 mm[Hg] [facility] Diastolic blood 2020-10-28 20:22:00 66 mm[Hg] [facility] Heart rate 2020-10-28 20:22:00 102 /min [facility] Body temperature 2020-10-28 20:22:00 36.89 Mel[facility] 2020-10-28 20:22:00 18 /min [facility] Body height 2020-10-28 20:22:00 172.7 cm [facility] Body weight 2020-10-28 20:22:00 112.038 kg [facility] BMI 2020-10-28 20:22:00 37.56 kg/m2 [facility] WEIGHT 2020-04-13 22:13:00 107 kg Heart Rate 2011-03-20 20:17:00 [facility] Diastolic (mm Hg) 2011-03-20 20:17:00 Mem orial [place] Temperature Oral (F) 2011-03-20 20:17:00 98.2 F [facility] Respitory Rate 2011-03-20 20:17:00 Memori al [place] Systolic (mm Hg) 2011-03-20 20:17:00 Chaka rial [place] Height 2011-03-20 16:01:00 175.26 cm [facility] Weight 2011-03-20 16:01:00 [facility] [place] Diastolic (mm Hg) 2011-03-20 16:01:00 Mem orial [place] Systolic (mm Hg) 2011-03-20 16:01:00 Chaka rial [place] Respitory Rate 2011-03-20 16:01:00 Memori al [place] Heart Rate 2011-03-20 16:01:00 [facility] [place] Temperature Oral (F) 2011-03-20 16:01:00 98.0 F [facility] [place] Procedures Procedure Date / Time Performed Performing Clinician [facility] e ASSIGNMENT OF BENEFITS 2020-10-28 20:06:22 Doctor Unassigned, No [facility] Name Medical Branch Plan of Care Planned Activity Planned Date Details Comments Source Future Scheduled 2021-02-23 INFLUENZA VACCINE Univer sity of Test 00:00:00 (Season Ended) [place] [facility] [code = INFLUENZA Branch VACCINE (Season Ended)] Future Scheduled 2021-02-23 INFLUENZA VACCINE Univer sity of Test 00:00:00 (Season Ended) [place] [facility] [code = INFLUENZA Branch VACCINE (Season Ended)] Future Scheduled 2021-02-23 INFLUENZA VACCINE Univer sity of Test 00:00:00 (Season Ended) [place] [facility] [code = INFLUENZA Branch VACCINE (Season Ended)] Future Scheduled 2021-02-23 INFLUENZA VACCINE Univer sity of Test 00:00:00 (Season Ended) [place] [facility] [code = INFLUENZA Branch VACCINE (Season Ended)] Future Scheduled 2021-02-23 INFLUENZA VACCINE Univer sity of Test 00:00:00 (Season Ended) [place] [facility] [code = INFLUENZA Branch VACCINE (Season Ended)] Future Scheduled 2021-02-23 INFLUENZA VACCINE Univer sity of Test 00:00:00 (Season Ended) [place] [facility] [code = INFLUENZA Branch VACCINE (Season Ended)] Diagnostic Test 2020-10-28 CBC WITH DIFF Expected: University of Pending 00:00:00 [code = 38241-1] 10/28/2020, [place] [facility] Expires: Branch 10/28/2021 Future Scheduled 2014 Screening for University of Test 00:00:00 malignant neoplasm [place] [facility] ical of cervix Branch (procedure) [code = 356602915] Future Scheduled 2014 Screening for University of Test 00:00:00 malignant neoplasm [place] [facility] ical of cervix Branch (procedure) [code = 913751853] Future Scheduled 2014 Screening for University of Test 00:00:00 malignant neoplasm [place] [facility] ical of cervix Branch (procedure) [code = 003777986] Future Scheduled 2014 Screening for University of Test 00:00:00 malignant neoplasm [place] [facility] ical of cervix Branch (procedure) [code = 207022292] Future Scheduled 2014 Screening for University of Test 00:00:00 malignant neoplasm [place] [facility] ical of cervix Branch (procedure) [code = 493249974] Future Scheduled 2014 Screening for University of Test 00:00:00 malignant neoplasm [place] [facility] ical of cervix Branch (procedure) [code = 040792155] Future Scheduled 2012-02-25 DTaP,Tdap,and Td Univers ity of Test 00:00:00 Vaccines (1 - [place] [facility] Tdap) [code = Branch DTaP,Tdap,and Td Vaccines (1 - Tdap)] Future Scheduled 2012-02-25 DTaP,Tdap,and Td Univers ity of Test 00:00:00 Vaccines (1 - [place] [facility] Tdap) [code = Branch DTaP,Tdap,and Td Vaccines (1 - Tdap)] Future Scheduled 2012-02-25 DTaP,Tdap,and Td Univers ity of Test 00:00:00 Vaccines ( - [facility] Tdap) [code = Branch DTaP,Tdap,and Td Vaccines (1 - Tdap)] Future Scheduled 2012-02-25 DTaP,Tdap,and Td Univers ity of Test 00:00:00 Vaccines ( - [facility] Tdap) [code = Branch DTaP,Tdap,and Td Vaccines (1 - Tdap)] Future Scheduled 2012-02-25 DTaP,Tdap,and Td Univers ity of Test 00:00:00 Vaccines ( - [facility] Tdap) [code = Branch DTaP,Tdap,and Td Vaccines (1 - Tdap)] Future Scheduled 2012-02-25 DTaP,Tdap,and Td Univers ity of Test 00:00:00 Vaccines ( - [facility] Tdap) [code = Branch DTaP,Tdap,and Td Vaccines (1 - Tdap)] Future Scheduled 2011 Hepatitis C University of Test 00:00:00 screening [place] [facility] (procedure) [code Branch = 351313195] Future Scheduled 2011 Hepatitis C University of Test 00:00:00 screening [place] [facility] (procedure) [code Branch = 374548683] Future Scheduled 2011 Hepatitis C University of Test 00:00:00 screening [place] [facility] (procedure) [code Branch = 044681408] Future Scheduled 2011 Hepatitis C University of Test 00:00:00 screening [place] [facility] (procedure) [code Branch = 805974623] Future Scheduled 2011 Hepatitis C University of Test 00:00:00 screening [place] [facility] (procedure) [code Branch = 341038537] Future Scheduled 2011 Hepatitis C University of Test 00:00:00 screening [place] [facility] (procedure) [code Branch = 622886323] Future Scheduled 2009 SARS-CoV-2 University of Test 00:00:00 (COVID-19) Vaccine [place] [facility] ical (1) [code = Branch SARS-CoV-2 (COVID-19) Vaccine (1)] Future Scheduled 2009 SARS-CoV-2 University of Test 00:00:00 (COVID-19) Vaccine [place] [facility] ical (1) [code = Branch SARS-CoV-2 (COVID-19) Vaccine (1)] Future Scheduled 2009 SARS-CoV-2 University of Test 00:00:00 (COVID-19) Vaccine [place] [facility] (1) [code = Branch SARS-CoV-2 (COVID-19) Vaccine (1)] Future Scheduled 2009 SARS-CoV-2 University of Test 00:00:00 (COVID-19) Vaccine [place] [facility] (1) [code = Branch SARS-CoV-2 (COVID-19) Vaccine (1)] Future Scheduled 2009 SARS-CoV-2 University of Test 00:00:00 (COVID-19) Vaccine [place] [facility] (1) [code = Branch SARS-CoV-2 (COVID-19) Vaccine (1)] Future Scheduled 2009 SARS-CoV-2 University of Test 00:00:00 (COVID-19) Vaccine [place] [facility] (1) [code = Branch SARS-CoV-2 (COVID-19) Vaccine (1)] Future Scheduled 2005 Depression University of Test 00:00:00 screening [place] [facility] (procedure) [code Branch = 861317602] Future Scheduled 2005 Depression University of Test 00:00:00 screening [place] [facility] (procedure) [code Branch = 702677295] Future Scheduled 2005 Depression University of Test 00:00:00 screening [place] [facility] (procedure) [code Branch = 158299615] Future Scheduled 2005 Depression [facility] Test 00:00:00 screening [place] [facility] (procedure) [code Branch = 399766392] Future Scheduled 2005 Depression University of Test 00:00:00 screening [place] [facility] (procedure) [code Branch = 448846530] Future Scheduled 2005 Depression [facility] 00:00:00 screening [place] [facility] (procedure) [code Branch = 988085890] Encounters Start End Encounter Admission Attending Care Care Encounter Source Date/Time Date/Time Type Type Clinicians Facility Department ID 2020-04-13 Inpatient ER MILANA, SLE Surgery [id number] [facility] 21:35:00 KAVONNV 2021-07-12 2021-07-12 Outpatient WAGNER MUKHERJEE [facility] [id number] Univers 11:15:00 11:15:00 [id number] ity [facility] 2021-07-12 2021-07-12 Outpatient WAGNER MUKHERJEE [facility] [id number] [facility] 2021-07-02 Emergency X SYEDFELICIA [facility] ERT [id number] Univers 10:01:00 14:49:00 FOLUSHO ity [facility] 2021-07-02 2021-07-02 Telephone Wagner Nguyen [facility] [id number] Univers 00:00:00 00:00:00 HEALTH [id number] it y of CLEAR [id number] [facility] [id number] [address] OFFICE BUILDING 2021-06-30 2021-06-30 Outpatient WAGNER MUKHERJEE [facility] AMY [id number] Univers 11:37:00 [facility]49[facility] 2020-09-15 2020-09-15 Outpatient [facility] [id number] [place] 00:00:00 00:00:[address] 2020-09-01 2020-09-08 Inpatient NOHEMY, [facility] 023 [id number] [place] 00:00:00 00:00:00 ESVIN [address] 2018-03-06 2018-03-09 [facility] [id number] [place] 00:00:00 00:00:00 [facility] 2011-03-20 2011-03-20 Emergency nullFlavo [id number] [facility] 10:52:00 15:19:00 ada Rivera 00 l [place] Results Test Description Test Time Test Comments Results Result Comments Source BASIC METABOLIC PANEL 2020-04-17 06:54:00 Test Item Value Reference Range Interpretation Comme nts SODIUM (BEAKER) (test code 137 meq/L 136-145 = 381) POTASSIUM (BEAKER) (test 3.7 meq/L 3.5-5.1 code = 379) CHLORIDE (BEAKER) (test 106 meq/L 98-107 code = 382) CO2 (BEAKER) (test code = 26 meq/L 22-29 355) BLOOD UREA NITROGEN 12 mg/dL 7-21 (BEAKER) (test code = 354) CREATININE (BEAKER) (test 0.77 mg/dL 0.57-1.25 code = 358) GLUCOSE RANDOM (BEAKER) 92 mg/dL 70-105 (test code = 652) CALCIUM (BEAKER) (test code 8.7 mg/dL 8.4-10.2 = 697) EGFR (BEAKER) (test code = 90 mL/min/1.73 sq m ESTIMATED GFR IS NOT 1092) ACCURATE CRE ATININE CLEARANCE IN NV EDICTING GLOMERULAR FILT RATION RATE. ESTIMATED GFR IS NOT APPLICABLE FOR DIALYSIS PATIENTS. Brush Holder Inspector ID - DOMENICO MCBC W/PLT COUNT & AUTO [id number] 06:51:00 Test Item Value Reference Range Interpretation [...] PERCENT (BEAKER) (test code = 2801) CT, [id number] 15:56:00Please administer IV and PO contrastUnlisted Reason for Exam - Click Yes and Enter Reason Below->No [facility] 1995 Sex: FFINAL [...] Sharon Lott VerifiedDate/Time: 04/16/2020 15:56:02 Reading Location: [address] Body Reading Room [facility] ACTIVITY 2020-04-16 08:36:00 Test Item Value Reference Range Interpretation Comments [facility] ACTIVITY (test code = 4590068) 99 CBC W/PLT COUNT & AUTO [id number] 06:57:00 Test Item Value Reference Range Interpretation [...] (BEAKER) (test code = 2801) BASIC METABOLIC [id number] 06:56:00 Test Item Value Reference Range Interpretation [...] mg/dL 8.4-10.2 (test code = 697) EGFR (PILI) (test 93 mL/min/1.73 ESTIMA JESSICA GFR IS code = 1092) sq m NOT ACCURATE CREATININE CLEARANCE IN PREDICTING GLOMERULAR FILTRATION RATE . ESTIMATED GFR I S NOT APPLICABLE FOR DIALYSIS PATIEN TS. Brush Holder Inspector ID - EDASIU/S, ENDOVAGINAL (EV)2020-04-15 20:45:00Reason for exam:- >RLQ pain, rule out ovarian pathology [facility] 1995 Sex: FFINAL [...] Electronically signed by: Omar CHAKRABORTY 04/15/2020 08:45 [facility] [id number] 07:27:00 Test Item Value Reference Range Interpretation [...] S NOT APPLICABLE FOR DIALYSIS PATIEN TS. Brush Holder Inspector ID - DOMENICO MCBC W/PLT COUNT & AUTO [id number] 07:03:00 Test Item Value Reference Range Interpretation [...] 0-1 PERCENT (BEAKER) (test code = 2801) FACTOR 9 [id number] 13:15:00 Test Item Value Reference Range Interpretation Comments FACTOR IX ACTIVITY (BEAKER) (test 169.0 % 60.0-150.0 H code = 666) FACTOR 8 [id number] 13:14:00 Test Item Value Reference Range Interpretation Comments FACTOR VIII ACTIVITY (BEAKER) (test 76.0 % 45.0-150.0 code = 663) [place] FACTOR (VWF) [id number] 13:13:00 Test Item Value Reference Range Interpretation Comments [facility] ANTIGEN (BEAKER) (test code = 66.0 % 50.0-160.0 7621) SARS-COV2/RT-PCR ([facility])2020-04-14 09:20:00 Test Item Value Reference Range Interpretation Comments SARS-COV2/RT-PCR (test Negative Not Detected, Negative, code = 8977178) See external report for linked test SARS-COV-2 PERFORMING LAB [facility] MURALI (test code = 8330781) Negative result for this test determines that [...] 564(g) of the Act.Fact Sheet for Healthcare Providers:https://www.[employer].com/sites/default/files/product/documents/Fact_Shee p_RA_Qbpirlaqk_Ltos_SKQL-UmJ-6.pdfFact Sheet for Healthcare Patients:https://www.[employer].com/sites/default/files/product/ documents/Bfib_Bumos_Ixyfkwhf_Ccsn_AUAX-GhN-4.pdfPerforming Laboratory:[facility], [place] [address]ENHIKHJSF SCREEN, [id number] 07:08:00 Test Item Value Reference Range Interpretation Comments TEST URINE (BEAKER) (test Negative code = 583) BASIC METABOLIC [id number] 05:42:00 Test Item Value Reference Range Interpretation [...] S NOT APPLICABLE FOR DIALYSIS PATIEN TS. Brush Holder Inspector ID - EDASIHEPATIC FUNCTION [id number] 05:39:00 Test Item Value Reference Range Interpretation [...] (test code = 8 U/L 6-55 347) Brush Holder Inspector ID - EDASICBC W/PLT COUNT & AUTO [id number] 05:32:00 Test Item Value Reference Range Interpretation [...] 0-1 PERCENT (BEAKER) (test code = 2801) PROTHROMBIN [id number] 05:24:00 Test Item Value Reference Range Interpretation [...] INR is2.5-3.5 for patients wiht mechanical heart valves.LACTIC ACID, [id number] 00:13:00 Test Item Value Reference Range Interpretation Comments LACTATE BLOOD VENOUS (2) (ARMANIAKER) 0.44 mmol/L 0.50-2.20 L (test code = 2872) Brush Holder Inspector HALIMA JOHNSON [id number] 16:35:[facility] 16:35:0025.0[facility] AayxxlzEGIDFCHXK2496-31-03 16:35:0088.0[facility] CodssvzOERGKEYCM9812-15-68 16:35:0010.0[facility] QhmuifvNPVREZGPL4291-87-86 16:35:0022.0[facility] CqjqrvmXIOZPNARW3295-21-84 16:35:004.1[facility] LGUOUGVGZ6465-29-18 16:35:34696.0[facility] YnfpubjNYWLSWSRD5098-29-70 16:35:00 137.0[facility] CojhcabMDVOYZTJZ2708-66-74 16:35:000.6[facility] 2011-03-20 16:35:009.4[facility] BvoazcaHPSLDXZPM9204-33-85 16:35:003.8[facility] YvsftcjKJAYLJIAR2660-56-68 16:35:0015.1[facility] MrbvnzsGUIELWAUT8581-62-60 16:35:00 Test Item Value Reference Range Interpretation Comments A/G Ratio (test code = A/G Ratio) 1.0 1 0.7-1.6 N [facility] NtikdauSSJSMQHSI4000-54-02 16:35:003.8[facility]annCHEMISTRY 2011-03-20 16:35:00 Test Item Value Reference Range Interpretation Comments B/C Ratio (test code = B/C Ratio) 17.0 1 6-25 N [facility] BcopntySLXEKSYJK1921-08-11 16:35:0035.0[facility]annCHEMISTRY 2011-03-20 16:35:0083.0[facility] VfbmfhzUYWVFKQFNI8667-22-46 16:35:009.6[facility] TwphttmHHYCZPISUL3649-91-00 16:35:25000.0[facility] OejrhgjYLBPVTJCUN1140-68-00 16:35:0012.7[facility] YhplqyfEBIOZFFNZL3805-35-98 16:35:0033.7[facility] DFKPAFERLI2786-43-40 16:35:0013.6[facility] JebjqnjLQAFEJHWYL6646-02-19 16:35:00 40.4[facility] LgppplwQASLHVIPBI3060-43-89 16:35:004.82[facility] HermannHEMATOLOGY 2011-03-20 16:35:009.0[facility] YjtafjoVRRRMEOGPE6326-60-26 16:35:00 Test Item Value Reference Range Interpretation Comments MCH (test code = MCH) 28.2 pg 27.0-31.0 N [facility] AuygualSYKWEUDDEI3235-99-59 16:35:0083.8[facility]annHEMATOLOGY 2011-03-20 16:35:000.1[facility] BpdpgqhULTVXWBHTL8891-05-28 16:35:001.8[facility] QidamilSHPVRGGSXZ9470-04-28 16:35:006.3[facility] DqowkzgYSPBEQTPWS6200-28-53 16:35:00Normal (03/20/2011 11:35:00) ??[facility] IkpxifhTLORDHDJMR2309-57-36 16:35:002.4[facility] XdwaafaCIYSAAMGYL7402-38-63 16:35:000.9[facility] ODRAMEWYMW2038-28-58 16:35:0019.8[facility] VxxbckfAEMPYSHDKR3195-04-14 16:35:00 7.3[facility] AwisbqxSWTJSATQWO3100-18-18 16:35:000.2[facility] HermannHEMATOLOGY 2011-03-20 16:35:000.7[facility] GgobfsnUVDKLJDVQE5572-58-09 16:35:0069.6[facility] EbpmcwrCJGQUZZJAN7535-69-42 16:35:00Normal (03/20/2011 11:35:00) ??[facility] CenterBegephsBESSQQCQIQ8496-14-50 16:35:003-5 /HPF *ABN*(03/20/2011 11:35:00) ?? [facility] AtwruvyQCPSTBOGY1017-76-68 16:35:00Negative (03/20/2011 11:35:00) ?? [facility] CenterJqxeybpAIXOZJPGOC6164-57-27 16:35:00Moderate /HPF (03/20/2011 11:35:00) ??[facility] CenterHwhcqokRXQZWJWDYA1890-22-70 16:35:003-5 /HPF (03/20/2011 11:35:00) ?? [facility] CenterXsjjgucHCAUAJTDNX4083-39-11 16:35:00Many /LPF *ABN*(03/20/2011 11:35:00) ??[facility] CenterHkqedfbINFZRTYXGB4554-86-21 16:35:00Negative (03/20/2011 11:35:00) ??[facility] CenterGuzxsjfKYEWLMVCAF6079-42-42 16:35:00Negative (03/20/2011 11:35:00) ??[facility] CenterTndccebQOMTPEIBAN0442-73-96 16:35:00Moderate /LPF *ABN*(03/20/2011 11:35:00) ??[facility] CenterZeutvuxSSIJIEJFZC6501-98-42 16:35:001.0 [facility] CenterXfwxxifAYYCLWGSDP2395-78-22 16:35:00Small *ABN*(03/20/2011 11:35:00) ?? [facility] CenterXxgtiktTGPKFMRXOC8954-48-39 16:35:00Moderate *ABN*(03/20/2011 11:35:00) ??[facility] CenterYzydofjQWZRYCIATC0463-55-52 16:35:0040 mg/dL *ABN*(03/20/2011 11:35:00) ??[facility] CenterIsznoliDBGVRICDC4010-76-37 16:35:0011.0[facility] EDFETKDCDY5807-34-55 16:35:00Negative (03/20/2011 11:35:00) ??[facility] Wiliam BBPBAARXRH7948-08-03 16:35:00>=1.030 *ABN*(03/20/2011 11:35:00) ??[facility] DoftvrbRQCFLWLXNH9808-00-04 16:35:00Trace *ABN*(03/20/2011 11:35:00) ??[facility] NlzjgssUAOTDFUUJN1965-31-85 16:35:00 Test Item Value Reference Range Interpretation Comments UA pH (test code = UA pH) 6.0 1 5.0-8.0 N [facility] ExjgcajBLEIQTTTOM5625-12-98 16:35:00Slight Cloudy (03/20/2011 11:35:00) ??[facility] GuzlbxnGJEKBORGSY8623-60-42 16:35:00Yellow *NA*(03/20/2011 11:35:00) ??[facility] HgxwpowTFISUFIHX7501-65-86 16:35:001.0[facility]annCHEMISTRY 2011-03-20 16:35:00Negative (03/20/2011 11:35:00) ??[facility]annCHEMISTRY 2011-03-20 16:35:0011.0[facility] WmldnsnTBFYZVPZL9394-05-73 16:35:001.0[facility] YcydwneWLICEXEBK2120-69-08 16:35:0084.0[facility] NpopyyqVLLIDKLEW5075-18-81 16:35:0084.0[facility] CvptiafZEUWWYWFG5540-90-23 16:35:007.6[facility] FTRCXWQBI8808-79-70 16:35:0025.0[facility] AjhyyjhBPBVTALGH8891-45-32 16:35:0088.0 [facility] WkcvtytIXZXIHEHD3047-40-97 16:35:0010.0[facility]annCHEMISTRY 2011-03-20 16:35:0022.0[facility] IkudyozOBACSVQZF0487-71-36 16:35:004.1[facility] JbkgzqxXMSHYAALN8362-22-43 16:35:29076.0[facility] UxjgqciSLTCZORPN0554-47-17 16:35:12884.0[facility] CovwffwFCUXEOTQR9970-04-59 16:35:000.6[facility] MLEFJWBPP1905-56-37 16:35:009.4[facility] HvddnifMIBDTEIDT7150-60-72 16:35:007.6 [facility] GzlqtaiMPXMEIDIU6529-96-36 16:35:003.8[facility]annCHEMISTRY 2011-03-20 16:35:0015.1[facility] RkmjlpnLYUASUJLB5590-31-43 16:35:00 Test Item Value Reference Range Interpretation Comments A/G Ratio (test code = A/G Ratio) 1.0 1 0.7-1.6 N [facility] HyzyilsQGDEPHXIV3644-34-10 16:35:003.8[facility]annCHEMISTRY 2011-03-20 16:35:00 Test Item Value Reference Range Interpretation Comments B/C Ratio (test code = B/C Ratio) 17.0 1 6-25 N [facility] XyarwvtYLUTZFTJF5419-56-44 16:35:0035.0[facility]annCHEMISTRY 2011-03-20 16:35:0083.0[facility] NdgkhglWCJPBINYXC6576-39-02 16:35:009.6[facility] QcxtogtRZABLGJXXW3270-70-94 16:35:64741.0[facility] ElpgefhWQNSETCEKA0423-72-52 16:35:0012.7[facility] YswgqmySHZGLXBUK4554-41-80 16:35:0025.0[facility] GMDIZMYUBX2536-56-21 16:35:0033.7[facility] QmdovixWKPWCMQMKI8939-60-80 16:35:00 13.6[facility] VlvmliqXROWHEQMLX1371-46-80 16:35:0040.4[facility] HermannHEMATOLOGY 2011-03-20 16:35:004.82[facility] SszuclqQEMMXSMRAV8471-28-83 16:35:009.0[facility] BnogvquVYRHCFYQJJ9103-82-26 16:35:00 Test Item Value Reference Range Interpretation Comments MCH (test code = MCH) 28.2 pg 27.0-31.0 N [facility] EfyhplmVSIWDUYZQK2234-07-53 16:35:0083.8[facility] HermannHEMATOLOGY 2011-03-20 16:35:000.1[facility] UflhqolYUUHOHLCTE8853-17-83 16:35:001.8[facility] AghupfjRUWNZAZHGZ1738-08-97 16:35:006.3[facility] BumszsrXTRNFXYXB7573-57-12 16:35:0088.0[facility] LfhlvvkXDUQRUKTGL8868-84-25 16:35:00Normal (03/20/2011 11:35:00) ??[facility] OyqkfixZVNQOTLUEB8775-50-02 16:35:002.4[facility] RKYNILVEUH8255-93-74 16:35:000.9[facility] OcbcfnoQVLXJTPCFE4116-46-38 16:35:00 19.8[facility] WfcvojaQVKJAAFBWL3973-68-31 16:35:007.3[facility] HermannHEMATOLOGY 2011-03-20 16:35:000.2[facility] MrgfirfCZLYQBSLOG7399-05-77 16:35:000.7[facility] IwfmkcqONKITMIQAM5291-57-04 16:35:0069.6[facility] AtmdymoJGKOYEFPHV7299-00-12 16:35:00Normal (03/20/2011 11:35:00) ??[facility] FwulbbbIRGXFLTJHW2947-85-15 16:35:003-5 /HPF *ABN*(03/20/2011 11:35:00) ??[facility]annCHEMISTRY 2011-03-20 16:35:0010.0[facility] VhnifcrFPRWJJZGOF1134-11-45 16:35:00Moderate /HPF (03/20/2011 11:35:00) ??[facility] TclemtnQNITMYYOOA7540-76-86 16:35:003-5 /HPF (03/20/2011 11:35:00) ??[facility] MjrpjlsFPENANAZHT3950-29-44 16:35:00Many /LPF *ABN*(03/20/2011 11:35:00) ??[facility] XngaejaIDUKFQSSHD4267-47-82 16:35:00 Negative (03/20/2011 11:35:00) [facility] CenterWjbqrzyIZTTPWJNBN2934-24-12 16:35:00 Negative (03/20/2011 11:35:00) ??[facility] CenterLzqqxboTEHPZPBOAV2054-20-18 16:35:00 Moderate /LPF *ABN*(03/20/2011 11:35:00) ??[facility] CenterYcnhxlxBEYHFHDHSR1132-94-88 16:35:001.0[facility] MlbbnerOAGTUHZSMB9756-59-50 16:35:00Small *ABN*(03/20/2011 11:35:00) ??[facility] CenterWszksjyHGYXEJMFZI9136-40-60 16:35:00Moderate *ABN*(03/20/2011 11:35:00) ??[facility] CenterPfkyxzeONWQLGWYUE0677-21-36 16:35:0040 mg/dL *ABN*(03/20/2011 11:35:00) ??[facility]CdrddipEFJPPGOUN2956-82-74 16:35:00 22.0[facility] CenterXejpkdmVSDUZOHYCY4361-72-11 16:35:00Negative (03/20/2011 11:35:00) ??[facility] CenterGssughwDARMAMOGFU4854-45-20 16:35:00>=1.030 *ABN*(03/20/2011 11:35:00) ??[facility] CenterHdpahdqRASEYDWTVW9896-64-64 16:35:00Trace *ABN*(03/20/2011 11:35:00) ??[facility] CenterRyikygiRKCHRULVKS3898-80-89 16:35:00 Test Item Value Reference Range Interpretation Comments UA pH (test code = UA pH) 6.0 1 5.0-8.0 N [facility] CenterCwspzozPWVJOWYSQB8995-69-02 16:35:00Slight Cloudy (03/20/2011 11:35:00) ??[facility] CenterJilvtkcVDGTFHOJAQ3637-76-96 16:35:00Yellow *NA*(03/20/2011 11:35:00) ??[facility] CenterUwhxadmHBYNJKSJV1435-19-56 16:35:004.1[facility]annCHEMISTRY 2011-03-20 16:35:00Negative (03/20/2011 11:35:00) ??[facility]annCHEMISTRY 2011-03-20 16:35:0011.0[facility] IzsrmqbQJDZDGOTI5014-48-59 16:35:001.0[facility] XwirkdgNNLZWGDOA0943-08-10 16:35:0084.0[facility] XwibtsgHZDJVISXR8573-88-64 16:35:49959.0[facility] VyrnwxfHMDSLRVGU9272-22-53 16:35:007.6[facility] YRJOUBJQH2680-21-24 16:35:0025.0[facility] PqwgkszJVEKUXSTN8134-79-02 16:35:0088.0 [facility] YjezkgpCPCFUNZUP1786-21-58 16:35:0010.0[facility]annCHEMISTRY 2011-03-20 16:35:0022.0[facility] ObdwnacPFYTEKOMV6243-72-99 16:35:004.1[facility] LbpvxznACBAAZPWT2174-16-61 16:35:23487.0[facility] CttwdsyMJDQNLWRN8926-79-66 16:35:85253.0[facility] ZpqtkmhKLQFKHSMG3870-93-30 16:35:000.[facility] UXFWYQMIB1194-19-12 16:35:009.4[facility] VknyrvaCTNLMSKBU1286-13-58 16:35:28415.0 [facility] DofiykkUOPAOUZQQ4591-58-72 16:35:003.8[facility]annCHEMISTRY 2011-03-20 16:35:0015.1[facility] CneiwjeHQFQWZJBP2547-30-76 16:35:00 Test Item Value Reference Range Interpretation Comments A/G Ratio (test code = A/G Ratio) 1.0 1 0.7-1.6 N [facility] GwduwahQYUMGZVIT0214-22-39 16:35:003.8[facility] HermannCHEMISTRY 2011-03-20 16:35:00 Test Item Value Reference Range Interpretation Comments B/C Ratio (test code = B/C Ratio) 17.0 1 6-25 N [facility] JvvguiqKTMMVURIJ8829-30-53 16:35:0035.0[facility] HermannCHEMISTRY 2011-03-20 16:35:0083.0[facility] VnitngcFQYJRATNLW1537-62-34 16:35:009.6[facility] QzcmffyMDRNYMXQSU0580-48-75 16:35:92516.0[facility] RqkxttfPVNVHETHTP4488-69-31 16:35:0012.7[facility] UzhdoseRWQTUCPII2452-43-42 16:35:000.6[facility] XMEIJHFSHI1286-63-24 16:35:0033.7[facility] TuqoateAJMSVJQFOJ4470-61-82 16:35:00 13.6[facility] OaxtmkfMAGPQCLXXN3942-16-25 16:35:0040.4[facility]annHEMATOLOGY 2011-03-20 16:35:004.82[facility] CebzbjvICRVVGGBDW3307-31-94 16:35:009.0[facility] PbdouzwAVXAUPRJAE8278-97-12 16:35:00 Test Item Value Reference Range Interpretation Comments MCH (test code = MCH) 28.2 pg 27.0-31.0 N [facility] DogiszaQSEWUKWAPZ6703-50-49 16:35:0083.8[facility]annHEMATOLOGY 2011-03-20 16:35:000.1[facility] CeoifumEQVFCMKTGW1399-34-98 16:35:001.8[facility] IihxbtrKINBMJTXBG7514-78-44 16:35:006.3[facility] EycepoiWSPXYKRAW6203-20-37 16:35:009.4[facility] LjrnnzyHYOQVVAHKM6751-08-23 16:35:00Normal (03/20/2011 11:35:00) ??[facility] EfzpdcwDRRMKLUYWQ9279-16-27 16:35:002.4[facility] USTSXKQRJF7378-15-49 16:35:000.9[facility] ZutbvfhPFZWXIOFDJ7915-25-03 16:35:00 19.8[facility] XgaygvkGRKZBVOPCY9705-85-19 16:35:007.3[facility]annHEMATOLOGY 2011-03-20 16:35:000.2[facility] NxahywdKHMNBPTNCU8797-26-94 16:35:000.7[facility] BhnixfwOEAMMPBIYP9766-03-30 16:35:0069.6[facility] WxliwerTDFYWOJQEQ9197-75-24 16:35:00Normal (03/20/2011 11:35:00) ??[facility] EmalusdTDZHBQEVXF8667-78-77 16:35:003-5 /HPF *ABN*(03/20/2011 11:35:00) ??[facility]annCHEMISTRY 2011-03-20 16:35:003.8[facility] OdixzuwISYATGEWXK5609-53-33 16:35:00Moderate /HPF (03/20/2011 11:35:00) ??[facility] ZecvbkrYXVGONMVFL1996-92-55 16:35:003-5 /HPF (03/20/2011 11:35:00) ??[facility] CenterWipkxxyFZJIMSLBOZ1904-36-05 16:35:00Many /LPF *ABN*(03/20/2011 11:35:00) ??[facility] CenterXualiytCVCGHEWCDW6463-61-99 16:35:00 Negative (03/20/2011 11:35:00) ??[facility] AfuoodhTSFDLLOCJD0898-66-43 16:35:00 Negative (03/20/2011 11:35:00) ??[facility] CenterDiybfpnQWCIPUAQEX0325-87-64 16:35:00 Moderate /LPF *ABN*(03/20/2011 11:35:00) ??[facility] CenterRajnsdcSRNCFUCMQR0719-15-30 16:35:001.0[facility] TepszkuDAPHCMPUJH3810-95-83 16:35:00Small *ABN*(03/20/2011 11:35:00) ??[facility] CenterOpfegdaBHYSIKLVLY5448-83-99 16:35:00Moderate *ABN*(03/20/2011 11:35:00) ??[facility] CenterElzjwucNGXFVDSVRB3800-85-95 16:35:0040 mg/dL *ABN*(03/20/2011 11:35:00) ??[facility] YfbauymVMJOWLIFZ0911-37-90 16:35:00 15.1[facility] VgrmolpTZEYPOFZUO6215-63-34 16:35:00Negative (03/20/2011 11:35:00) ??[facility] TyzwhajKJXMSTMOAK7859-14-60 16:35:00>=1.030 *ABN*(03/20/2011 11:35:00) ??[facility] XrknmfxEFVTNDXPBW1713-15-72 16:35:00Trace *ABN*(03/20/2011 11:35:00) ??[facility] LhllptcGKACPAPATB4400-97-15 16:35:00 Test Item Value Reference Range Interpretation Comments UA pH (test code = UA pH) 6.0 1 5.0-8.0 N [facility] BgrzdyeOSHZTZIHHU8801-65-49 16:35:00Slight Cloudy (03/20/2011 11:35:00) ??[facility] BshgbwhBTRNQFVFXR7628-32-43 16:35:00Yellow *NA*(03/20/2011 11:35:00) ??[facility] NvaqtwiCKRUVQCTT5908-88-78 16:35:00 Test Item Value Reference Range Interpretation Comments A/G Ratio (test code = A/G Ratio) 1.0 1 0.7-1.6 N [facility] VmbciivZGGGHAEZY3091-81-56 16:35:00Negative (03/20/2011 11:35:00) ?? [facility] UpdzoazNRKDERDJL3349-24-08 16:35:0011.0[facility]annCHEMISTRY 2011-03-20 16:35:001.0[facility] BcpiedkYPVEYMFMA7747-89-02 16:35:0084.0[facility] RnpvmfeNLVJDFJIS5476-60-21 16:35:003.8[facility] LwdgueoHJLDGPVKR4111-73-52 16:35:007.6[facility] LgalvxcFPNBUIDUY3723-52-50 16:35:0025.0[facility] TNOXAUPVV0888-40-98 16:35:0088.0[facility] ZoymhqqLYPDIDFKK8987-00-35 16:35:0010.0 [facility] ZjdqtsrGAMXOBYRH4064-38-54 16:35:0022.0[facility]annCHEMISTRY 2011-03-20 16:35:004.1[facility] JplzqpkURKCBLZPM6814-08-78 16:35:53217.0[facility] PjxeeuoBCHREDOJH8054-74-62 16:35:43275.0[facility] AozokzsCOBHBGTYL3401-40-80 16:35:000.6[facility] PcgdzudCUYUGWREM2815-43-94 16:35:009.4[facility] XYJVZEZIN6554-43-83 16:35:00 Test Item Value Reference Range Interpretation Comments B/C Ratio (test code = B/C Ratio) 17.0 1 6-25 N [facility] RsczrfaRCLWMVRBE3569-45-60 16:35:003.8[facility]annCHEMISTRY 2011-03-20 16:35:0015.1[facility] NyskwyiYZOKLULLI7368-27-27 16:35:00 Test Item Value Reference Range Interpretation Comments A/G Ratio (test code = A/G Ratio) 1.0 1 0.7-1.6 N [facility] CykyxhhMDIFPUKDY3557-01-05 16:35:003.8[facility]annCHEMISTRY 2011-03-20 16:35:00 Test Item Value Reference Range Interpretation Comments B/C Ratio (test code = B/C Ratio) 17.0 1 6-25 N [facility] YxnzcjiKYUYVAWNQ8453-57-93 16:35:0035.0[facility]annCHEMISTRY 2011-03-20 16:35:0083.0[facility] TassasuQJPTZYBXAV2588-96-25 16:35:009.6[facility] AvcifjbDSBJHNEMPP0125-50-62 16:35:37834.0[facility] SglbeczXGIXKTEVCC8917-84-17 16:35:0012.7[facility] IclwipuVNIWOSENJ3833-04-61 16:35:0035.0[facility] XDWYPUXCLS8959-85-62 16:35:0033.7[facility] RhnszmzENEUWLJSRT6567-18-44 16:35:00 13.emorial OncyrhfASAVJSHCAZ8502-51-38 16:35:0040.4[facility]annHEMATOLOGY 2011-03-20 16:35:004.82[facility] HkhudrpQEHHVAUNUC3536-95-23 16:35:009.0[facility] StmcatpBJRVNPOTCQ4582-35-74 16:35:00 Test Item Value Reference Range Interpretation Comments MCH (test code = MCH) 28.2 pg 27.0-31.0 N [facility] XumrnxnBVPVUAPJYK4492-80-09 16:35:0083.8[facility]annHEMATOLOGY 2011-03-20 16:35:000.1[facility] BsdrkbgNCJHHJKJWV2768-69-98 16:35:001.8[facility] QqzyridRPAHYVOVIG5028-72-36 16:35:006.3[facility] XcxpxqvLLZUFEQAL4733-55-16 16:35:0083.0[facility] UigcspfDSJKQBOBKG8837-44-61 16:35:00Normal (03/20/2011 11:35:00) ??[facility] UtybpfxBVCMTJZIHI0289-85-37 16:35:002.4[facility] LTDTIRKEAH4107-26-18 16:35:000.9[facility] BnbzpkzONMFKDZXNC7666-92-28 16:35:00 19.8[facility] LrbyeasGDNJDYVCUH7858-39-70 16:35:007.3[facility]annHEMATOLOGY 2011-03-20 16:35:000.2[facility] NrcdsnhBUDLATAARA3436-59-73 16:35:000.7[facility] KmkuypcJUICJTSTZG0842-89-72 16:35:0069.emorial SlenbiiECFKXEPKOD6223-80-92 16:35:00Normal (03/20/2011 11:35:00) ??[facility] SfyeedqVDOUPIFUVC0799-25-98 16:35:003-5 /HPF *ABN*(03/20/2011 11:35:00) ??[facility]annHEMATOLOGY 2011-03-20 16:35:009.6[facility] UgoabwjBPUMJNGHXO9142-13-07 16:35:00Moderate /HPF (03/20/2011 11:35:00) ??[facility] WckbwedANDXYVGORV4849-91-19 16:35:003-5 /HPF (03/20/2011 11:35:00) ??[facility] VvbzcxrAMZCWBTKUN1070-62-48 16:35:00Many /LPF *ABN*(03/20/2011 11:35:00) ??[facility] CenterCbanwlmBNBYMIFJHQ5064-95-95 16:35:00 Negative (03/20/2011 11:35:00) ??[facility] CenterIzcbmsmQDKSRUYSTA5363-84-75 16:35:00 Negative (03/20/2011 11:35:00) ??[facility] CenterTqzymckBISECRMLXF5211-88-27 16:35:00 Moderate /LPF *ABN*(03/20/2011 11:35:00) ??[facility] CenterVodxlinMJFPRDZKAN3517-01-54 16:35:001.0[facility]CzkjxhvTPLGXPWRIZ8126-73-49 16:35:00Small *ABN*(03/20/2011 11:35:00) ??[facility] CenterPmuvkhfCUGINBECOE5347-26-93 16:35:00Moderate *ABN*(03/20/2011 11:35:00) ??[facility] CenterUzqyyleLITRFOHXNG6974-45-81 16:35:0040 mg/dL *ABN*(03/20/2011 11:35:00) ??[facility]bhtiqaKZBWXEPBNP9464-02-48 16:35:00 233.0[facility] CenterMxuoyozHBZAIWYLPT2023-46-45 16:35:00Negative (03/20/2011 11:35:00) ??[facility] CenterIbdbjpfHIYLDXRAOH4183-66-77 16:35:00>=1.030 *ABN*(03/20/2011 11:35:00) ??[facility] CenterBqtsjtdQGNKFSPZIC3430-41-24 16:35:00Trace *ABN*(03/20/2011 11:35:00) ??[facility] CenterVejlvneNGFDZZIQDC5330-98-57 16:35:00 Test Item Value Reference Range Interpretation Comments UA pH (test code = UA pH) 6.0 1 5.0-8.0 N [facility] CenterLoaubkzVIFMFXGRBO5684-60-94 16:35:00Slight Cloudy (03/20/2011 11:35:00) ??[facility] CenterDcdpqcnPVKNFKKYPJ5481-03-67 16:35:00Yellow *NA*(03/20/2011 11:35:00) ??[facility] HcdjbhqIWPPUCOOOQ6026-98-91 16:35:0012.7[facility] 2011-03-20 16:35:0033.7[facility] RdwypfzQAEBXVFPCZ0400-90-74 16:35:0013.6[facility] NvvwuimWCYOGNHLEL0652-74-30 16:35:0040.4[facility] XjtkkkwDCPJKOKJFG1368-38-20 16:35:004.82[facility] UybojwoKIGDOVUSUM5344-38-97 16:35:009.0[facility] CUMOFMGXSU9356-63-54 16:35:00 Test Item Value Reference Range Interpretation Comments MCH (test code = MCH) 28.2 pg 27.0-31.0 N [facility] UflfvrhLJHWLLMQUJ2064-93-21 16:35:0083.8[facility]annHEMATOLOGY 2011-03-20 16:35:000.1[facility] UmosxizMSFRAVDJAO8356-15-77 16:35:001.8[facility] WjpslujJGLDVVZQTL8929-17-67 16:35:006.3[facility] YvrpbuaBOPCAVTMOG0031-50-34 16:35:00Normal (03/20/2011 11:35:00) ??[facility] QyknchtZDOPNIXFUN5907-49-52 16:35:002.4[facility] ShxcdcqJHMFYIYYFB2538-50-59 16:35:000.9[facility] FVVSHEAMMA3864-97-44 16:35:0019.8[facility] DnkuaosPZSYZDTUKS1583-10-21 16:35:00 7.3[facility] IitlqrzHRWEYHOJTR8967-90-08 16:35:000.2[facility]annHEMATOLOGY 2011-03-20 16:35:000.7[facility] SlsotjdSPKTABROSC5038-22-57 16:35:0069.6[facility] CtuxlcwBRVMAUYQLL3995-45-14 16:35:00Normal (03/20/2011 11:35:00) ??[facility] SkanfloVSRSXSKFYD8698-25-04 16:35:003-5 /HPF *ABN*(03/20/2011 11:35:00) ?? [facility] CenterXjubqorUSLGLDUYVD6730-57-79 16:35:00Moderate /HPF (03/20/2011 11:35:00) ??[facility] CenterWadgmeeCDJUPRNSIH0904-07-49 16:35:003-5 /HPF (03/20/2011 11:35:00) ?? [facility] CenterOnctewqILKLGHPQAG0228-83-05 16:35:00Many /LPF *ABN*(03/20/2011 11:35:00) ??[facility] CenterXlhyljcOUCNRMRMMI9098-97-08 16:35:00Negative (03/20/2011 11:35:00) ??[facility] CenterLjsuktlFEVRLVFHQH8736-37-61 16:35:00Negative (03/20/2011 11:35:00) ??[facility] CenterEwotbfdMXCIOUBTYL7696-31-06 16:35:00Moderate /LPF *ABN*(03/20/2011 11:35:00) ??[facility] CenterBgdwulqQGMNYWIJVA5661-55-75 16:35:001.0 [facility] CenterDombtckXTHNQSHXZI4136-00-73 16:35:00Small *ABN*(03/20/2011 11:35:00) ?? [facility] CenterGavpbtqLIOWFNEGRK8756-04-66 16:35:00Moderate *ABN*(03/20/2011 11:35:00) ??[facility] CenterCvdyscuKKKSQNNWAM3744-72-37 16:35:0040 mg/dL *ABN*(03/20/2011 11:35:00) ??[facility] CenterIuqzxqtEKUPIMBIKD5077-70-43 16:35:00Negative (03/20/2011 11:35:00) ??[facility] CenterIsudiioTDDYHVMLYM6405-85-66 16:35:00>=1.030 *ABN*(03/20/2011 11:35:00) ??[facility] CenterTqdexdyBAHQNZIRAU7383-08-67 16:35:00Trace *ABN*(03/20/2011 11:35:00) ??[facility] CenterOvslmcyIDSNPEEIJS4689-40-19 16:35:00 Test Item Value Reference Range Interpretation Comments UA pH (test code = UA pH) 6.0 1 5.0-8.0 N [facility] PjublhqTXRVCFCSIC0051-92-43 16:35:00Slight Cloudy (03/20/2011 11:35:00) ??[facility] RoccmjyMEFEAXNBMF1813-30-77 16:35:00Yellow *NA*(03/20/2011 11:35:00) ??[facility] WsgjxshCSWVBIDVR8052-96-83 16:35:00Negative (03/20/2011 11:35:00) ?? [facility] BehwtmpHBPCIJVRF8585-11-52 16:35:0011.0[facility] HermannCHEMISTRY 2011-03-20 16:35:001.0[facility] IqhbinkXMTPITDWJ3419-40-90 16:35:0084.0[facility]
[2021-07-10] MEDS ORDERED: ONDANSETRON 4 MG/2 ML VIAL ONE (15:23)
[2021-07-10] MEDS ORDERED: MORPHINE 4 MG/ML SYR ONE (15:23)
[2021-07-10] MEDS ORDERED: NA CHLORIDE 0.9% 1,000 ML ONE (15:24)
[2021-07-10 15:30] LABS: Absolute Lymphocytes (CBC) 2.1 K/uL (0.7-4.9); Hematocrit 40.9 % (36.0-45.0); MPV 9.7 fL (7.6-11.3); RBC Red Blood Cell Count 4.79 M/uL (3.86-4.86)
[2021-07-10 15:58] LABS: ALT/SGPT 32 U/L (12-78); AST/SGOT 13 U/L (15-37); Albumin 2.6 g/dL (3.4-5.0); Alkaline Phosphatase 65 U/L (45-117); BUN Blood Urea Nitrogen 12 mg/dL (7-18); Bicarbonate 22 mmol/L (21-32); Bilirubin Direct < 0.1 mg/dL (0-0.2); Bilirubin Total 0.1 mg/dL (0.2-1.0); Glucose Level 120 mg/dL (74-106); Lipase 228 U/L (73-393); Potassium 3.4 mmol/L (3.5-5.1); Protein, Total 5.7 g/dL (6.4-8.2); Sodium Level 143 mmol/L (136-145)
--- NOTE | 2021-07-10 16:04 | RAD REPORT ---
EXAM DESCRIPTION: CTAbdomen Pelvis W Contrast - 07/10/2021 3:49 pm CLINICAL HISTORY: Abdominal pain. ABD PAIN COMPARISON: Abdomen Pelvis W Contrast dated 04/13/2020; Abdomen Pelvis W Contrast dated 04/07/20 16; CT ABD PELVIS W CONTRAST dated 08/21/2012 TECHNIQUE: Biphasic CT imaging of the abdomen and pelvis was performed with 100 ml non-ionic IV cont rast. All CT scans are performed using dose optimization technique as appropriate and may include automated exposure control or mA/KV adjustment according to patient size. FINDINGS: The lung bases are clear. The liver, spleen, pancreas, adrenal glands and kidneys are within normal limits. Subcutaneous air and fluid collection is seen just above the umbilical level measuring 32 x 27 mm. No free air or intra-abdominal/intrapelvic abscess. The appendix is normal. No evidence of significant lymphadenopathy. No suspicious bony findings. 5 cm left ovarian cyst. IMPRESSION: 3 cm fluid and air collection is seen in the subcutaneous fat anterior supraumbilical re gion. Postsurgical collection/hematoma versus abscess is the primary considerations. Advise clinical correlation with attention in this region. 5 cm left ovarian cyst.
--- NOTE | 2021-07-10 16:37 | EDPHYS ---
Physician Documentation [facility] Name: Symone Pineda Age: 26 yrs Sex: Female : 1995 Arrival Date: 07/10/2021 Time: 14:24 Bed 23 Private MD: ED Physician Rodolfo Pepe HPI: 07/10 15:12 This 26 yrs old Female presents to ER via Ambulatory with complaints of Bloody Stools. kb 15:12 The patient presents with abdominal pain that is diffuse. Onset: The symptoms/episode kb began/occurred 2 week(s) ago. The symptoms do not radiate. Associated signs and symptoms: Pertinent positives: blood in stools, nausea, Pertinent negatives: constipation, diarrhea, fever, vomiting. The symptoms are described as constant. Modifying factors: The symptoms are alleviated by nothing, the symptoms are aggravated by nothing. Severity of pain: At its worst the pain was moderate in the emergency department the pain is unchanged. The patient has not experienced similar symptoms in the past. The patient has not recently seen a physician. Pt reports she had a hernia repair 2 weeks ago at [facility] in [place]. States she has had pain since then, went to [facility] ER and was told she had constipation from the tramadol so they gave her robaxin and ketorolac. States she has still been having pain and has noticed blood in stool for 3-4 days. . 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 - Social history:: Smoking status: Patient reports the use of cigarette tobacco products, smokes one-half pack cigarettes per day, cigars. ROS: 15:11 Constitutional: Negative for fever, chills, and weight loss. kb 15:11 Abdomen/GI: Positive for abdominal pain, nausea, Negative for vomiting, diarrhea, constipation. 15:11 All other systems are negative. Exam: 15:11 Constitutional: This is a well developed, well nourished patient who is awake, alert, kb and in no acute distress. Head/Face: Normocephalic, atraumatic. ENT: Moist Mucous membranes Cardiovascular: Regular rate and rhythm with a normal S1 and S2. No gallops, murmurs, or rubs. No pulse deficits. Respiratory: Respirations even and unlabored. No increased work of breathing. Talking in full sentences Skin: Warm, dry with normal turgor. Normal color. MS/ Extremity: Pulses equal, no cyanosis. Neurovascular intact. Full, normal range of motion. Neuro: Awake and alert, GCS 15, oriented to person, place, time, and situation. Moves all extremities. Normal gait. Psych: Awake, alert, with orientation to person, place and time. Behavior, mood, and affect are within normal limits. 15:11 Abdomen/GI: Inspection: abdomen appears normal, Bowel sounds: normal, in all quadrants, Palpation: soft, in all quadrants, moderate abdominal tenderness, in the right lower quadrant and left lower quadrant, Rectal exam: rectal tone normal, Stool: normal, brown, guaiac negative, hemorrhoid(s), external, without bleeding, without inflammation, without thrombosis, without pain. Vital Signs: 14:37 BP 117 / 80; Pulse 84; Resp 16; Temp 98.6; Pulse Ox 98% ; Weight 95.25 kg; Height 5 ft. jh5 9 in. (175.26 cm); Pain 10/10; 16:05 BP 106 / 64; Pulse 80; Resp 16; Pulse Ox 97% on R/A; ab2 17:14 BP 112 / 74; Pulse 78; Resp 16; Pulse Ox 99% on R/A; ab2 14:37 Body Mass Index 31.01 (95.25 kg, 175.26 cm) jh5 MDM: 15:00 Patient medically screened. kb 15:12 Data reviewed: vital signs, nurses notes. Data interpreted: Pulse oximetry: on room air kb is 98 %. Interpretation: normal. 16:34 Counseling: I had a detailed discussion with the patient and/or guardian regarding: the kb historical points, exam findings, and any diagnostic results supporting the discharge/admit diagnosis, lab results, radiology results, the need for outpatient follow up, a general surgeon, to return to the emergency department if symptoms worsen or persist or if there are any questions or concerns that arise at home. ED course: Discussed pt condition, labs, CT, and exam with Dr Wagner Nguyen (pt's surgeon). He states pt has appt with him in the office scheduled for Sunday and will see her then. No need for transfer at this time. Pt has no increased WBC, no fever. . 07/10 15:00 Order name: Basic Metabolic Panel kb 07/10 15:00 Order name: CBC with Diff kb 07/10 15:00 Order name: Hepatic Function kb 07/10 15:00 Order name: Lipase kb 07/10 15:00 Order name: Basic Metabolic Panel; Complete Time: 16:09 EDMS 07/10 15:01 Order name: Liver (Hepatic) Function; Complete Time: 16:09 EDMS 07/10 15:01 Order name: CBC with Automated Diff; Complete Time: 15:35 EDMS 07/10 15:01 Order name: Lipase; Complete Time: 16:09 EDMS 07/10 15:05 Order name: CT Abd/Pelvis - IV Contrast Only; Complete Time: 16:09 kb 07/10 15:11 Order name: Guiac kb 07/10 15:00 Order name: IV Saline Lock; Complete Time: 15:27 kb 07/10 15:00 Order name: Labs collected and sent kb Administered Medications: 15:27 Drug: NS 0.9% 1000 ml Route: IV; Rate: 1000 ml; Site: right antecubital; ab2 16:07 Follow up: Response: No adverse reaction ab2 15:27 Drug: morphine 4 mg Route: IVP; Site: right antecubital; ab2 16:07 Follow up: Response: No adverse reaction ab2 15:27 Drug: Zofran (Ondansetron) 4 mg Route: IVP; Site: right antecubital; ab2 16:07 Follow up: Response: No adverse reaction ab2 16:56 Drug: [place] (HYDROcodone-acetaminophen) 10 mg-325 mg 1 tabs Route: PO; ab2 17:15 Follow up: Response: No adverse reaction ab2 Disposition: 17:17 Co-signature as Attending Physician, Rodolfo Pepe MD I agree with the assessment and kdr plan of care. Disposition Summary: 07/10/21 16:36 Discharge Ordered Location: Home kb Condition: Stable kb Diagnosis - Abdominal pain, Generalized - post surgical kb Followup: kb - With: Emergency Department - When: As needed - Reason: Worsening of condition Followup: kb - With: Private Physician - When: 2 - 3 days - Reason: Recheck today's complaints, Continuance of care, Re-evaluation by your physician Discharge Instructions: - Discharge Summary Sheet kb - Abdominal Pain, Adult, [id number] kb Forms: - Medication Reconciliation Form kb - Thank You Letter kb - Antibiotic Education kb - Prescription Opioid Use kb Signatures: Dispatcher [employer] EDNancie Milton, MÓNICAC SQL APPLICATION DEVELOPER-Rodolfo Nelson MD MD kdr Rees, Jessica, RN RN jh5 Rivas Starr2
--- NOTE | 2021-07-10 16:37 | ER ---
Nurse's Notes [facility] Name: Symone Pineda Age: 26 yrs Sex: Female : 1995 Arrival Date: 07/10/2021 Time: 14:24 Bed 23 Private MD: Diagnosis: Abdominal pain, Generalized-post surgical Presentation: 07/10 14:37 Chief complaint: Patient states: "I had hernia repair surgery 06/30/2021 and I went to [address] last week for pain and they told me I was constipated and took away my pain meds and I have been in horrible pain ever since that my ibuprofen and toradal isn't working and when I go to the bathroom there is blood all in the toilet". Coronavirus screen: Vaccine status: Patient reports being unvaccinated. Client denies travel out of the [place] in the last 14 days. At this time, the client does not indicate any symptoms associated with coronavirus-19. Ebola Screen: Patient negative for fever greater than or equal to 101.5 degrees Fahrenheit, and additional compatible Ebola Virus Disease symptoms Patient denies exposure to infectious person. Patient denies travel to an Ebola-affected area in the 21 days before illness onset. Initial Sepsis Screen: Does the patient meet any 2 criteria? No. Patient's initial sepsis screen is negative. Does the patient have a suspected source of infection? No. Patient's initial sepsis screen is negative. Risk Assessment: Do you want to hurt yourself or someone else? Patient reports no desire to harm self or others. 14:37 Method Of Arrival: Ambulatory [facility] 14:37 Acuity: JUN 3 [facility] 14:47 Onset of symptoms is unknown. ab2 Triage Assessment: 14:43 General: Appears uncomfortable, obese, unkempt, Behavior is calm, cooperative, [facility] appropriate for age, anxious. Pain: Complains of pain in abdomen. GI: Reports rectal bleeding, bloody stool. 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 - Social history:: Smoking status: Patient reports the use of cigarette tobacco products, smokes one-half pack cigarettes per day, cigars. Screenin:44 Abuse screen: Denies threats or abuse. Denies injuries from another. Nutritional [facility] screening: No deficits noted. Tuberculosis screening: No symptoms or risk factors identified. Fall Risk None identified. Assessment: 14:45 General: Appears in no apparent distress. comfortable, Behavior is calm, cooperative, ab2 appropriate for age. Pain: Complains of pain in abdomen Pain currently is 5 out of 10 on a pain scale. Neuro: No deficits noted. Level of Consciousness is awake, alert, obeys commands, Oriented to person, place, time, situation, Appropriate for age Fixture Builder are equal bilaterally Moves all extremities. Gait is steady, Speech is normal, Facial symmetry appears normal. Cardiovascular: No deficits noted. Denies chest pain, shortness of breath, Heart tones S1 S2 present Patient's skin is warm and dry. Chest pain is denied. Respiratory: No deficits noted. Airway is patent Breath sounds are clear bilaterally. Denies cough, shortness of breath. GI: Abdomen is round Surgical incision noted from recent hernia repair. Pt is wearing abdominal binder at this time Reports lower abdominal pain, upper abdominal pain, bloody stool. : No deficits noted. No signs and/or symptoms were reported regarding the genitourinary system. EENT: No deficits noted. No signs and/or symptoms were reported regarding the EENT system. Derm: No deficits noted. No signs and/or symptoms reported regarding the dermatologic system. Musculoskeletal: No deficits noted. No signs and/or symptoms reported regarding the musculoskeletal system. Vital Signs: 14:37 BP 117 / 80; Pulse 84; Resp 16; Temp 98.6; Pulse Ox 98% ; Weight 95.25 kg; Height 5 ft. [facility] 9 in. (175.26 cm); Pain 10/10; 16:05 BP 106 / 64; Pulse 80; Resp 16; Pulse Ox 97% on R/A; ab2 17:14 BP 112 / 74; Pulse 78; Resp 16; Pulse Ox 99% on R/A; ab2 14:37 Body Mass Index 31.01 (95.25 kg, 175.26 cm) [facility] ED Course: 14:24 Patient arrived in ED. mr 14:42 Triage completed. jh5 14:43 Arm band placed on right wrist. jh5 14:44 Patient has correct armband on for positive identification. Bed in low position. Call [facility] light in reach. Side rails up X 1. 14:45 Rivas Starr is Primary Nurse. ab2 14:47 No provider procedures requiring assistance completed. ab2 15:00 Nanc[facility] Wagner [facility]NP[facility]C [facility] kb 15:00 Rodolfo Pepe MD is Attending Physician. kb 15:27 CBC with Automated Diff Sent. ab2 15:27 Lipase Sent. ab2 15:27 Liver (Hepatic) Function Sent. ab2 15:27 Basic Metabolic Panel Sent. ab2 15:27 Basic Metabolic Panel Sent. ab2 15:27 CBC with Diff Sent. ab2 15:27 Hepatic Function Sent. ab2 15:27 Lipase Sent. ab2 15:27 Guiac Sent. ab2 15:40 Inserted saline lock: 20 gauge in left antecubital area, using aseptic technique. Blood ab2 collected. 15:49 CT Abd/Pelvis - IV Contrast Only In Process Unspecified. EDMS 17:15 IV discontinued, intact, bleeding controlled, No redness/swelling at site. Pressure ab2 dressing applied. Administered Medications: 15:27 Drug: NS 0.9% 1000 ml Route: IV; Rate: 1000 ml; Site: right antecubital; ab2 16:07 Follow up: Response: No adverse reaction ab2 15:27 Drug: morphine 4 mg Route: IVP; Site: right antecubital; ab2 16:07 Follow up: Response: No adverse reaction ab2 15:27 Drug: Zofran (Ondansetron) 4 mg Route: IVP; Site: right antecubital; ab2 16:07 Follow up: Response: No adverse reaction ab2 16:56 Drug: [place] (HYDROcodone-acetaminophen) 10 mg-325 mg 1 tabs Route: PO; ab2 17:15 Follow up: Response: No adverse reaction ab2 Outcome: 16:36 Discharge ordered by . kb 17:15 Discharged to home ambulatory. ab2 17:15 Condition: good 17:15 Condition: good 17:15 Discharge instructions given to patient, Instructed on discharge instructions, follow up and referral plans. Demonstrated understanding of instructions, follow-up care. 17:15 Patient left the ED. ab2 Signatures: Dispatcher [employer] EDMS Bernard, Nancie, DEBURRING MACHINE OPERATOR-C DEBURRING MACHINE OPERATOR-Ckb Missael, Daylin Álvarez, RN RN jh5 Rivas Starr
[2021-07-10] MEDS ORDERED: HYDROCODONE/APAP 10/325 TAB ONE (16:40)
[2021-07-10 17:32] VITALS: TEMP 98.6
[2021-07-10 17:34] VITALS: BP 112/74; O2SAT 99
== END 2021-07-10 17:15 | disposition home or self-care (01) ==
LOC: ER 14:19
DX: R10.9 Unspecified abdominal pain (principal); Z98.890 Other specified postprocedural states; Z88.0 Allergy status to penicillin; F17.210 Nicotine dependence, cigarettes, uncomplicated
CPT/HCPCS: 85025; 80048; 36415; 82565; 80076; 82272; 83690; 74177; 96375; 96374; 99284; Q9967; J7030; J2405

== ENCOUNTER 2021-09-12 14:23 | Emergency (ER) | payer OTHER ==
--- OUTSIDE RECORDS SUMMARY | 2021-09-12 14:31 | XMS REPORT | Continuity of Care Document ---
:1995 Author Organization [facility] t Address [address] [place] [address] Care Team Providers Name Role Phone Pcp, Does Not Have A Primary Care Physician SAM CORTÉS Attending Clinician Unavailable TC Attending Clinician Unavailable Stephanie SOLORZANO Attending Clinician Unavailable Stephanie Solorzano DO Attending Clinician Laurel GREEN Attending Clinician Unavailable Howard NGUYEN, T Attending Clinician Unavailable Only, Db Test Attending Clinician Unavailable Bethany PERRIN Attending Clinician BETHANY Attending Clinician Unavailable Wendy PEREZ Attending Clinician Doctor Unassigned, Name Attending Clinician Unavailable Jelly DIETZ Attending Clinician Unavailable 2, Lab Attending Clinician Unavailable Tc CABEZAS Attending Clinician NOHEMY Attending Clinician Unavailable SAM CORTÉS Admitting Clinician Unavailable Jelly DIETZ Admitting Clinician Unavailable NOHEMY Admitting Clinician Unavailable MAAME LONG Admitting Clinician Unavailable Payers Payer Name Policy Type Policy Number Effective Date Expiration Date Flavio DELONG [id number] 2016 HEALTH 00:00:00 Problems Condition Condition Condition Status Onset Resolution Last Treating Co mments Source Name Details Category Date Date Treatment Clinician Date Ventral Ventral Disease Active Overview: Univ ers hernia hernia 03-24 [facility] ity of without without 00:00: g of this [place] obstructio obstructio 00 note Me dical n or n or might be Branch gangrene gangrene different from the original. Added automatic ally from request for surgery [id number] Psychosis Psychosis Disease Active Uni vers 9-14 ity of 00:00: [place] [facility] PTSD PTSD Disease Active Univers (post-trau (post-trau -14 it y of matic matic 00:00: [place] stress stress 00 Medical disorder) disorder) Bran ch Acute Acute Disease Active Univers midline midline 6-07 ity of thoracic thoracic 00:00: [place] back pain back pain 00 [facility] Seizure Seizure Disease Active Univers 6-06 ity of 00:00: [place] [facility] Obesity Obesity Disease Active Univers (BMI (BMI 5-06 ity of 30-39.9) 30-39.9) 00:00: Medical Branch Alcohol Alcohol Disease Active Univers dependence dependence 3-12 it y of 00:00: Medical Branch Opioid Opioid Disease Active Univers dependence dependence 3-12 it y of 00:00: [place] [facility] Suicide Suicide Disease Active Univers attempt attempt 3-12 ity of 00:00: [facility] Sleep Sleep Disease Active Univers disorder disorder 4-25 ity of 00:00: [place] [facility] 41 weeks 41 weeks Disease Active 2014-06 Unive rs gestation gestation 2-14 ity of of of 00:00: [place] 00 [facility] Gastroente Gastroente Disease Active U nivers ritis ritis 9-18 ity of 00:00: [place] 00 Medical Branch IBS IBS Disease Active Univers (irritable (irritable 9-18 it y of bowel bowel 00:00: [place] syndrome) syndrome) 00 [facility] Von Von Disease Active Univers Willebrand Willebrand 9-18 it y of disease disease 00:00: [place] 00 Medical Branch Uric acid Uric acid Disease Active Uni vers crystallur crystallur 9-18 it y of ia ia 00:00: [place] [facility] Penicillin Penicillin Disease Active U nivers allergy allergy 9-18 ity of 00:00: [place] [facility] Dysmenorrh Dysmenorrh Disease Active U nivers ea ea 09-17 ity of 00:00: [place] 00 Medical [facility] ADHD ADHD Disease Active Univers (attention (attention 08-27 it y of deficit deficit 00:00: [place] hyperactiv hyperactiv 00 Me dical ity ity Branch disorder) disorder) Contracept Contracept Disease Active U nivers ion ion 3- ity of management management 00:00[place] Irregular Irregular Disease Active Uni vers bleeding bleeding 3 ity of 00:00: [place] 00 Medical [facility] Left Left Disease Active Univers ovarian ovarian 08-27 ity of cyst cyst 00:00: [place] 00 Medical Branch LLQ pain LLQ pain Disease Active Unive rs 08-27 ity of 00:00: [place] 00 Medical Branch ABDOMINAL Diagnosis Active 2011-03-20 [facility] PAIN 03-20 11:25:00 l 10:00: [place] ABDOMINAL 00 PAIN Active 03/20/2011 [place] Disease Resolve 2014-062017-01-03 2017-01-03 Univers arrhythmia arrhythmia d 2-15 00:00:00 16:57:57 ity of before the [place] the 00:[place] onset of onset of 00 Medica l labor labor Branch Disease Resolve 2014-062017-01-03 2017-01-03 Univers contractio contractio d 0-29 00:00:00 16:57:57 ity of ns, third ns, third 00:00: [place] trimester trimester 00 [facility] Branch Vaginal Vaginal Disease Resolve 2014-062017-01-03 2017-01-03 Univers candidiasi candidiasi d 0-29 00:00:00 16:57:57 ity of s s 00:00: [place] 00 Medical Branch C. C. Disease Resolve 2017-01-03 2017-01-03 Univers difficile difficile d 03-17 00:00:00 16:57:57 ity of diarrhea diarrhea 00:00: [place] 00 Medical Branch Supervisio Supervisio Disease Resolve 2017-01-03 2017-01-03 Univers n of high n of high d 9 00:00:00 16:57:57 ity of risk risk 00:00: [place] , , 00 Me dical antepartum antepartum Br anch , third , third trimester trimester Pelvic Pelvic Disease Resolve 2017-01-03 2017-01-03 Univers pain pain d -18 00:00:00 16:57:57 ity of affecting affecting 00:00[place] Med[place]on[place] Branch Bipolar Bipolar Disease Resolve 2017-01-03 2017-01-03 Univers disease disease d 03-12 00:00:00 16:57:57 ity of during during 00:00: [place] 00 Medi jonah in third in third Branch trimester trimester Altered Altered Disease Resolve 2015-03-12 2015-03-12 Univers mental mental d 12-14 00:00:00 19:01:25 ity of status status 00:00: [place] 00 Medical [place] Allergies, Adverse Reactions, Alerts Allergy Allergy Status Severity Reaction(s) Onset Inactive Treating Comm ents Source Name Type Date Date Clinician COTTONSE Allergy Active Med [facility] 2019-06 [facility]ICILL Allergy Active High Anaphylaxis 2019-[address] [facility] 0[facility] Medical 00 Calvin Cottonse Propensi Active Anaphylaxis 0 Peanut U nivers ed Oil ty to 6-27 butter, ity of adverse 00:00: processed [place] reaction 00 cheeses [facility] Penicill Propensi Active Anaphylaxis 2014-0 U nivers ins ty to 6-27 ity of adverse 00:00: [place] reaction 00 [facility] COTTONSE DRUG Active Anaphylaxis Uni vers ED OIL INGREDI 6-27 ity of 00:00: [place] 00 Medical [place] PENICILL Drug Active Anaphylaxis 2014-0 Uni vers INS Class 6-27 ity of 00:00: [place] 00 [facility] penicill penicill Active [facility] ins ins l [place] NO KNOWN Allergy Active [facility] Social History Social Habit Start Date Stop Date Quantity Comments Source Exposure to Not sure [facility] SARS-CoV-2 (event) [facility] Alcohol intake 2021-09-12 2021-09-12 0 /d University of 00:00:00 00:00:00 [facility] Tobacco Comment 2020-10-28 2020-10-28 started at age Unive rsity of 00:00:00 00:00:00 12 [facility] Cigarette 2017-10-03 2017-10-03 University of pack-years 00:00:00 00:00:00 [facility] Cigarettes smoked 2017-01-03 2017-01-03 Univers ity of current (pack per 00:00:00 00:00:00 ) - Reported Branch Tobacco use and 2017-01-03 2017-01-03 Current user Univers ity of exposure 00:00:00 00:00:00 [facility] History of tobacco 2015-03-13 Cigarette Smoker University of use 00:00:00 [facility] Sex [birth year] At [birth year] Universit y of 00:00:00 00:00:00 [facility] Smoking Status Start Date Stop Date Source Current every day smoker 2017-01-03 00:00:00 Uni versity of [facility] Medications Ordered Filled Start Stop Current Ordering Indication Dosage Frequency Signature Comments Components Source Medication Medication Date Date Medication? Clinician (SIG) Name Name cyclobenzap 2021- No 10mg 10 mg, Uni vers rine 09-12 Oral, ity of (FLEXERIL) 18:45: 18:06 ONCE, 1 [place] as tablet 10 00 :00 dose, On Medica l mg [facility] Branch 09/12/21 at 1345, Routine HYDROcodone 2021- No 1{tbl} 1 tablet, Univers -acetaminop 09-12 Oral, ity of hen (NORCO 18:45: 18:06 ONCE, 1 [place] as 5) 5-325 mg 00 :00 dose, On Medi jonah tablet 1 [facility] tablet 09/12/21 at 1345, MARTHA cyclobenzap Yes [id number] 10mg Take 1 Univers rine 10 mg 09-12 tablet by ity of tablet 00:00: mouth 3 [place] 00 (three) Medical times Branch daily as needed for Muscle Spasms. traMADoL 50 2021- Yes [id number] 50mg Take 1 Uni vers mg tablet 07-10 tablet by ity of 00:00: 05:59 mouth [place] 00 :00 every 4 Medical (four) Branch hours as needed for Pain (scale 7-10) for up to 10 days. Indication s: acute pain traMADoL 50 2021- Yes [id number] 50mg Take 1 Uni vers mg tablet 07-10 tablet by ity of 00:00: 05:59 mouth [place] 00 :00 every 4 Medical (four) Branch hours as needed for Pain (scale 7-10) for up to 10 days. Indication s: acute pain traMADoL 50 2021-0 2021- Yes [id number] 50mg Take 1 Uni vers mg tablet 07-10 tablet by ity of 00:00: 05:59 mouth [place] 00 :00 every 4 Medical (four) Branch hours as needed for Pain (scale 7-10) for up to 10 days. Indication s: acute pain traMADoL 50 2021-0 2021- Yes [id number] 50mg Take 1 Uni vers mg tablet 07-10 tablet by ity of 00:00: 05:59 mouth [place] 00 :00 every 4 Medical (four) Branch hours as needed for Pain (scale 7-10) for up to 10 days. Indication s: acute pain ketorolac 2021-0 Yes [id number] 10mg Take 1 U nivers 10 mg 1-08 tablet by ity of tablet 00:00: mouth [place] 00 every 6 Medical (six) Branch hours as needed for Pain (scale 7-10). ondansetron 2-0 Yes [id number] 4mg Take 1 Univers 4 mg 1-08 tablet by ity of disintegrat 00:00: mouth [place] ing tablet 00 every 8 Medica l (eight) Branch hours as needed for Nausea and Vomiting (N/V). ketorolac 2-0 Yes [id number] 10mg Take 1 U nivers 10 mg 1-08 tablet by ity of tablet 00:00: mouth [place] 00 every 6 Medical (six) Branch hours as needed for Pain (scale 7-10). ondansetron 2-0 Yes [id number] 4mg Take 1 Univers 4 mg 1-08 tablet by ity of disintegrat 00:00: mouth [place] ing tablet 00 every 8 Medica l (eight) Branch hours as needed for Nausea and Vomiting (N/V). ketorolac 2022-0 Yes [id number] 10mg Take 1 U nivers 10 mg 1-08 tablet by ity of tablet 00:00: mouth [place] 00 every 6 Medical (six) Branch hours as needed for Pain (scale 7-10). ondansetron 2022-0 Yes [id number] 4mg Take 1 Univers 4 mg 1-08 tablet by ity of disintegrat 00:00: mouth [place] ing tablet 00 every 8 Medica l (eight) Branch hours as needed for Nausea and Vomiting (N/V). ketorolac 2022-0 Yes [id number] 10mg Take 1 U nivers 10 mg 1-08 tablet by ity of tablet 00:00: mouth [place] 00 every 6 Medical (six) Branch hours as needed for Pain (scale 7-10). ondansetron 2022-0 Yes [id number] 4mg Take 1 Univers 4 mg 1-08 tablet by ity of disintegrat 00:00: mouth [place] ing tablet 00 every 8 Medica l (eight) Branch hours as needed for Nausea and Vomiting (N/V). ketorolac 2022-0 Yes [id number] 10mg Take 1 U nivers 10 mg 1-08 tablet by ity of tablet 00:00: mouth [place] 00 every 6 Medical (six) Branch hours as needed for Pain (scale 7-10). ondansetron 2021-0 Yes [id number] 4mg Take 1 Univers 4 mg 1-08 tablet by ity of disintegrat 00:00: mouth [place] ing tablet 00 every 8 Medica l (eight) Branch hours as needed for Nausea and Vomiting (N/V). PRAZOSIN 2021-0 Yes Take by Unive rs HCL 1-06 mouth. ity of (PRAZOSIN 17:53: [place] ORAL) 33 Medical Branch venlafaxine 0 Yes 75mg Take 75 mg Univers XR (EFFEXOR 1-06 by mouth ity of XR) 75 mg 17:53: daily with [place] 24 hr 33 breakfast. Medical capsule Branch busPIRone Yes 7.5mg Take 7.5 Uni vers 7.5 mg 1-06 mg by ity of tablet 17:53: mouth 3 [place] 33 (three) Medical times Branch daily. PRAZOSIN 2021-0 Yes Take by Unive rs HCL 1-06 mouth. ity of (PRAZOSIN 17:53: [place] ORAL) 33 Medical Branch venlafaxine 0 Yes 75mg Take 75 mg Univers XR (EFFEXOR 1-06 by mouth ity of XR) 75 mg 17:53: daily with [place] 24 [place] 33 breakfast. Medical capsule Branch busPIRone 0 Yes 7.5mg Take 7.5 Uni vers 7.5 mg 1-06 mg by ity of tablet 17:53: mouth 3 [place] 33 (three) Medical times Branch daily. PRAZOSIN 2021-0 Yes Take by Unive rs HCL 1-06 mouth. ity of (PRAZOSIN 17:53: [place] ORAL) 33 Medical Branch venlafaxine 0 Yes 75mg Take 75 mg Univers XR (EFFEXOR 1-06 by mouth ity of XR) 75 mg 17:53: daily with [place] 24 hr 33 breakfast. Medical capsule Branch busPIRone 0 Yes 7.5mg Take 7.5 Uni vers 7.5 mg 1-06 mg by ity of tablet 17:53: mouth 3 [place] 33 (three) Medical times Branch daily. PRAZOSIN 2021-0 Yes Take by Unive rs HCL 1-06 mouth. ity of (PRAZOSIN 17:53: [place] ORAL) 33 Medical Branch venlafaxine Yes 75mg Take 75 mg Univers XR (EFFEXOR 1-06 by mouth ity of XR) 75 mg 17:53: daily with [place] 24 hr 33 breakfast. Medical capsule Branch busPIRone Yes 7.5mg Take 7.5 Uni vers 7.5 mg 1-06 mg by ity of tablet 17:53: mouth 3 [place] 33 (three) Medical times Branch daily. PRAZOSIN 2021-0 Yes Take by Unive rs HCL 1-06 mouth. ity of (PRAZOSIN 17:53: [place] ORAL) 33 Medical Branch venlafaxine Yes 75mg Take 75 mg Univers XR (EFFEXOR 1-06 by mouth ity of XR) 75 mg 17:53: daily with [place] 24 [place] 33 breakfast. Medical capsule Branch busPIRone Yes 7.5mg Take 7.5 Uni vers 7.5 mg 1-06 mg by ity of tablet 17:53: mouth 3 [place] 33 (three) Medical times Branch daily. gabapentin 2020-06 Yes 400mg Take 400 Un norma 400 mg 0-05 mg by ity of capsule 00:00: mouth 3 [place] 00 (three) Medical times Branch daily. traZODone 2020-06 Yes 100mg Take 100 Uni vers 100 mg 0-05 mg by ity of tablet 00:00: mouth as [place] 00 needed. Medical Branch gabapentin 2020-06 Yes 400mg Take 400 Un norma 400 mg 0-05 mg by ity of capsule 00:00: mouth 3 (three) Medical times Branch daily. traZODone 2020- Yes 100mg Take 100 Uni vers 100 mg 0-05 mg by ity of tablet 00:00: mouth as [place] 00 needed. Medical Branch gabapentin 2020-06 Yes 400mg Take 400 Un norma 400 mg 0-05 mg by ity of capsule 00:00: mouth 3 (three) Medical times Branch daily. traZODone 2020-06 Yes 100mg Take 100 Uni vers 100 mg 0-05 mg by ity of tablet 00:00: mouth as [place] 00 needed. Medical Branch gabapentin 2020-06 Yes 400mg Take 400 Un norma 400 mg 0-05 mg by ity of capsule 00:00: mouth 3 (three) Medical times Branch daily. traZODone 2020-06 Yes 100mg Take 100 Uni vers 100 mg 0-05 mg by ity of tablet 00:00: mouth as [place] 00 needed. Medical Branch gabapentin 2020-06 Yes 400mg Take 400 Un norma 400 mg 0-05 mg by ity of capsule 00:00: mouth 3 (three) Medical times Branch daily. traZODone 2020- Yes 100mg Take 100 Uni vers 100 mg 0-05 mg by ity of tablet 00:00: mouth as [place] 00 needed. Medical Branch foLIC acid 2020-0 Yes [id number] 1mg Take 1 Univers 1 mg tablet 6-08 tablet by ity of 00:00: mouth [place] 00 daily. Medical Branch foLIC acid 2020-0 Yes [id number] 1mg Take 1 Univers 1 mg tablet 6-08 tablet by ity of 00:00: mouth [place] 00 daily. Medical Branch foLIC acid 2020-0 Yes [id number] 1mg Take 1 Univers 1 mg tablet 6-08 tablet by ity of 00:00: mouth [place] 00 daily. Medical Branch foLIC acid 2020-0 Yes [id number] 1mg Take 1 Univers 1 mg tablet 6-08 tablet by ity of 00:00: mouth [place] 00 daily. Medical Branch foLIC acid 2020-0 Yes [id number] 1mg Take 1 Univers 1 mg tablet 6-08 tablet by ity of 00:00: mouth [place] 00 daily. Medical Branch tiZANidine 2021-0 Yes [id number] 2mg Take 1 Univers 2 mg 6-07 capsule by ity of capsule 00:00: mouth 3 [place] (three) Medical times Branch daily as needed for Muscle Spasms. lamoTRIgine 2020-0 Yes [id number] 100mg Take 1 Univers 100 mg 6-07 tablet by ity of tablet 00:00: mouth [place] 00 every Medical morning. Branch tiZANidine 2020-0 Yes [id number] 2mg Take 1 Univers 2 mg 6-07 capsule by ity of capsule 00:00: mouth 3 [place] (three) Medical times Branch daily as needed for Muscle Spasms. lamoTRIgine 2020-0 Yes [id number] 100mg Take 1 Univers 100 mg 6-07 tablet by ity of tablet 00:00: mouth [place] 00 every Medical morning. Branch tiZANidine 2020-0 Yes [id number] 2mg Take 1 Univers 2 mg 6-07 capsule by ity of capsule 00:00: mouth 3 [place] (three) Medical times Branch daily as needed for Muscle Spasms. lamoTRIgine 2020-0 Yes [id number] 100mg Take 1 Univers 100 mg 6-07 tablet by ity of tablet 00:00: mouth [place] 00 every Medical morning. Branch tiZANidine 2020-0 Yes [id number] 2mg Take 1 Univers 2 mg 6-07 capsule by ity of capsule 00:00: mouth 3 [place] (three) Medical times Branch daily as needed for Muscle Spasms. lamoTRIgine 2020-0 Yes [id number] 100mg Take 1 Univers 100 mg 6-07 tablet by ity of tablet 00:00: mouth [place] 00 every Medical morning. Branch tiZANidine 2020-0 Yes [id number] 2mg Take 1 Univers 2 mg 6-07 capsule by ity of capsule 00:00: mouth 3 [place] (three) Medical times Branch daily as needed for Muscle Spasms. lamoTRIgine 2020-0 Yes [id number] 100mg Take 1 Univers 100 mg 6-07 tablet by ity of tablet 00:00: mouth [place] 00 every Medical morning. Branch ACETAMINOPH 2020-0 Yes Take by Un norma EN/DIPHENHY 5-06 mouth. ity of DRAMINE 20:31: [place] (TYLENOL PM 24 Medical ORAL) Branch Trazodone 2021-0 Yes Take by Univ ers 150 mg [...] Medical ORAL) Branch Trazodone Yes Take by [facility] ers 150 mg Tb24 5-06 mouth. ity [...] 24 (three) Medical times Branch daily. HYDROcodone 0 Yes 1{tbl} Take 1 Un norma -acetaminop [...] by ity of tablet 20:31: mouth 3 [place] 24 (three) Medical times Branch daily. HYDROcodone Yes 1{tbl} Take 1 Un norma -acetaminop 5-06 tablet by ity of hen 5-325 20:31: mouth [place] mg tablet 24 every 6 Medical (six) Branch hours as needed. ACETAMINOPH Yes Take by Un norma EN/DIPHENHY 5-06 mouth. ity of DRAMINE 20:31: [place] (TYLENOL PM 24 Medical ORAL) Branch Trazodone Yes Take by Univ ers 150 mg Tb24 5-06 mouth. ity of 20:31: 24 Medical Branch PRAZOSIN Yes Take by [...] 24 Medical Branch [facility] mouth. ity of (PRAZOSIN [...] (six) Branch hours as needed. norethindro Yes [id number] 1{tbl} Take 1 Univers ne 0.35 mg 5-06 tablet by ity of tablet 00:00: mouth [place] 00 daily. Medical Branch norethindro Yes [id number] 1{tbl} Take 1 Univers ne 0.35 mg 5-06 tablet by ity of tablet 00:00: mouth [place] 00 daily. Medical Branch norethindro Yes [id number] 1{tbl} Take 1 Univers ne 0.35 mg 5-06 tablet by ity of tablet 00:00: mouth [place] 00 daily. Medical Branch norethindro Yes [id number] 1{tbl} Take 1 Univers ne 0.35 mg 5-06 tablet by ity of tablet 00:00: mouth [place] 00 daily. Medical Branch norethindro Yes [id number] 1{tbl} Take 1 Univers ne 0.35 mg 5-06 tablet by ity of tablet 00:00: mouth [place] 00 daily. Medical Branch norethindro Yes Dysmenorrhe 1{tbl} Take 1 Univers ne 0.35 mg 5-06 a tablet by ity of tablet 00:00: mouth 00 daily. Medical Branch norethindro 2020-0 Yes Dysmenorrhe 1{tbl} Take 1 Univers ne [...] tablet 00:00: mouth daily. Medical Branch gabapentin 1-0 Yes 300mg Take 300 Un [...] mouth (three) Medical times Branch daily. QUEtiapine 2021-0 Yes 200mg Take 200 Un norma 200 mg 4-16 mg by ity of tablet 00:00: mouth at [place] bedtime. Medical Branch QUEtiapine 2021-0 Yes 200mg Take 200 Un norma 200 mg 4-16 mg by ity of tablet 00:00: mouth at [place] bedtime. Medical Branch QUEtiapine 2021-0 Yes 200mg Take 200 Un norma 200 mg 4-16 mg by ity of tablet 00:00: mouth at [place] bedtime. Medical Branch QUEtiapine 1-0 Yes 200mg Take 200 Un norma 200 mg 4-16 mg by ity of tablet 00:00: mouth at [place] bedtime. Medical Branch QUEtiapine 1-0 Yes 200mg Take 200 Un norma 200 mg 4-16 mg by ity of tablet 00:00: mouth at [place] bedtime. Medical Branch QUEtiapine 1-0 Yes 200mg Take 200 Un norma 200 mg 4-16 mg by ity of tablet 00:00: mouth at [place] bedtime. Medical Branch lamoTRIgine 1-0 Yes 100mg Take 100 U nivers 100 mg 4-16 mg by ity of tablet 00:00: mouth daily. Medical Branch QUEtiapine 1-0 Yes 200mg Take 200 Un norma 200 mg 4-16 mg by ity of tablet 00:00: mouth at [place] bedtime. Medical Branch lamoTRIgine 1-0 Yes 100mg Take 100 U nivers 100 mg 4-16 mg by ity of tablet 00:00: mouth daily. Medical Branch QUEtiapine 1-0 Yes 200mg Take 200 Un norma 200 mg 4-16 mg by ity of tablet 00:00: mouth at [place] bedtime. Medical Branch lamoTRIgine 1-0 Yes 100mg Take 100 U nivers 100 mg 4-16 mg by ity of tablet 00:00: mouth daily. Medical Branch QUEtiapine 1-0 Yes 200mg Take 200 Un norma 200 mg 4-16 mg by ity of tablet 00:00: mouth at [place] bedtime. Medical Branch lamoTRIgine 1-0 Yes 100mg Take 100 U nivers 100 mg 4-16 mg by ity of tablet 00:00: mouth daily. Medical Branch QUEtiapine 1-0 Yes 200mg Take 200 Un norma 200 mg 4-16 mg by ity of tablet 00:00: mouth at [place] bedtime. Medical Branch lamoTRIgine 1-0 Yes 100mg Take 100 U nivers 100 mg 4-16 mg by ity of tablet 00:00: mouth daily. Medical Branch loperamide 2018-0 Yes 2mg Take 1 Unive [...] Diarrhea. Not to exceed 16mg daily. dextrometho 2018-0 Yes 10mL Take 10 mL Univers rphan-guaif 1-11 by mouth ity of enesin 00:00: every 6 [place] 10-100 mg/5 00 (six) Medical mL solution hours as Bran ch needed for Cough. dextrometho 2018-0 Yes 10mL Take 10 mL Univers rphan-guaif 1-11 by mouth ity of enesin 00:00: every 6 [place] 10-100 mg/5 00 (six) Medical mL solution hours as Bran ch needed for Cough. dextrometho 2018-0 Yes 10mL Take 10 mL Univers rphan-guaif 1-11 by mouth ity of enesin 00:00: every 6 [place] 10-100 mg/5 00 (six) Medical mL solution hours as Bran ch needed for Cough. dextrometho 2018-0 Yes 10mL Take 10 mL Univers rphan-guaif 1-11 by mouth ity of enesin 00:00: every 6 [place] 10-100 mg/5 00 (six) Medical mL solution hours as Bran ch needed for Cough. dextrometho 2018-0 Yes 10mL Take 10 mL Univers rphan-guaif 1-11 by mouth ity of enesin 00:00: every 6 [place] 10-100 mg/5 00 (six) Medical mL solution hours as Bran ch needed for Cough. dextrometho 2018-0 Yes 10mL Take 10 mL Univers rphan-guaif 1-11 by mouth ity of enesin 00:00: every 6 [place] 10-100 mg/5 00 (six) Medical mL solution hours as Bran ch needed for Cough. dextrometho 2018-0 Yes 10mL Take 10 mL Univers rphan-guaif 1-11 by mouth ity of enesin 00:00: every 6 [place] 10-100 mg/5 00 (six) Medical mL solution hours as Bran ch needed for Cough. dextrometho 2018-0 Yes 10mL Take 10 mL Univers rphan-guaif 1-11 by mouth ity of enesin 00:00: every 6 [place] 10-100 mg/5 00 (six) Medical mL solution hours as Bran ch needed for Cough. dextrometho 2018-0 Yes 10mL Take 10 mL Univers rphan-guaif 1-11 by mouth ity of enesin 00:00: every 6 [place] 10-100 mg/5 00 (six) Medical mL solution hours as Bran ch needed for Cough. dextrometho 2018-0 Yes 10mL Take 10 mL Univers rphan-guaif 1-11 by mouth ity of enesin 00:00: every 6 [place] 10-100 mg/5 00 (six) Medical mL solution hours as Bran ch needed for Cough. dextrometho 2018-0 Yes 10mL Take 10 mL Univers rphan-guai 1-11 by mouth ity of enesin 00:00: every 6 [place] 10-100 mg/5 00 (six) Medical mL solution hours as Bran ch needed for Cough. traMADOL 50 2017-0 Yes 50mg Take 1 [...] (six) Branch hours as needed (pain). HYDROcodone 2017-0 Yes 1{tbl} Take 1 Un norma -acetaminop 7-12 tablet by ity of hen 5-325 17:11: mouth [place] mg tablet 55 every 6 Medical (six) Branch hours as needed. ACETAMINOPH 2017-0 Yes Take by Un norma EN/DIPHENHY 7-12 mouth. ity of DRAMINE 17:09: [place] (TYLENOL PM 49 Medical ORAL) Branch Trazodone 2017-0 Yes Take by Univ ers 150 mg Tb24 7-12 mouth. ity of 17:04: [place] 36 Medical Branch PRAZOSIN 2017-0 Yes Take by Unive rs HCL 7-12 mouth. ity of (PRAZOSIN 17:04: [place] ORAL) 36 Medical Branch venlafaxine 2017-0 Yes 75mg Take 75 mg Univers XR (EFFEXOR 7-12 by mouth ity of XR) 75 mg 17:04: daily with [place] 24 hr 36 breakfast. Medical capsule Branch busPIRone Yes 7.5mg Take 7.5 Uni vers 7.5 mg 7-12 mg by ity of tablet 17:04: mouth 3 [place] 36 (three) Medical times Branch daily. acetaminoph Yes 1{tbl} Take 1 Un norma [...] vers (TESSALON 6-24 capsule by ity of SOLOMON) 100 00:00: mouth 3 [place] as mg capsule 00 (three) Medica l times Branch daily as needed for Cough. benzonatate Yes 100mg Take 1 Uni vers (TESSALON 6-24 capsule by ity of PERLES) 100 00:00: mouth 3 [place] as mg capsule 00 (three) Medica l times Branch daily as needed for Cough. benzonatate 2016-0 Yes 100mg Take 1 Uni vers (TESSALON 6-24 capsule by ity of PERLES) 100 00:00: mouth 3 [place] as mg capsule 00 (three) Medica l times Branch daily as needed for Cough. benzonatate 2016-0 Yes 100mg Take 1 Uni vers (TESSALON 6-24 capsule by ity of PERLES) 100 00:00: mouth 3 Jared as mg capsule 00 (three) Medica l times Branch daily as needed for Cough. benzonatate 2016-0 Yes 100mg Take 1 Uni vers (TESSALON 6-24 capsule by ity of [employer]) 100 00:00: mouth 3 [place] as mg capsule 00 (three) Medica l times Branch daily as needed for Cough. benzonatate 2016-0 Yes 100mg Take 1 Uni vers (TESSALON 6-24 capsule by ity of [employer]) 100 00:00: mouth 3 Jared as mg capsule 00 (three) Medica l times Branch daily as needed for Cough. azithromyci 2016-0 Yes Z-Dyllan = 2 U nivers n 6-24 tablets ity of (ZITHROMAX) 00:00: once a day [place] 250 mg 00 x 1 day, Medical tablet then 1 Branch tablet PO qd x 4 days benzonatate 2016-0 Yes 100mg Take 1 Uni vers (TESSALON 6-24 capsule by ity of PERLES) 100 00:00: mouth 3 Jared as mg capsule 00 (three) Medica l times Branch daily as needed for Cough. azithromyci 2016-0 Yes Z-Dyllan = 2 U nivers n 6-24 tablets ity of (ZITHROMAX) 00:00: once a day [place] 250 mg 00 x 1 day, Medical tablet then 1 Branch tablet PO qd x 4 days benzonatate 2016-0 Yes 100mg Take 1 Uni vers (TESSALON 6-24 capsule by ity of PERLES) 100 00:00: mouth 3 Jared as mg capsule 00 (three) Medica l times Branch daily as needed for Cough. azithromyci 2016-0 Yes Z-Dyllan = 2 U nivers n 6-24 tablets ity of (ZITHROMAX) 00:00: once a day [place] 250 mg 00 x 1 day, Medical tablet then 1 Branch tablet PO qd x 4 days benzonatate 2016-0 Yes 100mg Take 1 Uni vers (TESSALON 6-24 capsule by itjean marie of PERLKATHY) 100 00:00: mouth 3 Jared as mg capsule 00 (three) Medica l times Branch daily as needed for Cough. azithromyci 2016-0 Yes Z-Dyllan = 2 U nivers n 6-24 tablets ity of (ZITHROMAX) 00:00: once a day [place] 250 mg 00 x 1 day, Medical tablet then 1 Branch tablet PO qd x 4 days benzonatate 2016-0 Yes 100mg Take 1 Uni vers (TESSALON 6-24 capsule by itjean marie of SOLOMON) 100 00:00: mouth 3 Jared as mg capsule 00 (three) Medica l times Branch daily as needed for Cough. azithromyci 2016-0 Yes Z-Dyllan = 2 U nivers n 6-24 tablets ity of (ZITHROMAX) 00:00: once a day [place] 250 mg 00 x 1 day, Medical tablet then 1 Branch tablet PO qd x 4 days benzonatate 2016-0 Yes 100mg Take 1 Uni vers (TESSALON 6-24 capsule by itjean marie of SOLOMON) 100 00:00: mouth 3 Jared as mg capsule 00 (three) Medica l times Branch daily as needed for Cough. azithromyci 2016-0 Yes Z-Dyllan = 2 U nivers n 6-24 tablets ity of (ZITHROMAX) 00:00: once a day [place] 250 mg 00 x 1 day, Medical tablet then 1 Branch tablet PO qd x 4 days ondansetron 2016-0 Yes 4mg Take 1 Univ [...] ers (ZOFRAN, 5-20 tablet by ity of ALISTAIRI 00:00: mouth [place] DE,) 4 mg 00 every 8 Medical tablet (eight) Branch hours as needed for Nausea and Vomiting (N/V). lactulose Yes Jin Melisa 20 gm, 1 M emoria 20 g oral 9-26 ea, PO, l powder 20:03: TID, 42 Wiliam 38 ea, Substituti on Allowed, PDR/REC lactulose Yes Jin Melisa 20 gm, 1 M emoria 20 g oral 9-26 ea, PO, l powder 20:03: TID, 42 [place] 38 ea, Substituti on Allowed, PDR/REC lactulose [...] Substituti on Allowed, PDR/REC Omnipaque Yes Jin Melisa 30,000 mg, Memoria 300 9-26 100 mL, l 18:13: Route: IV, Drug form: SOLN, ONCE, Start date: 03/20/11 13:13:00, Stop date: 03/20/11 13:13:00 Omnipaque Yes Jin Melisa 30,000 mg, Memoria 300 9-26 100 mL, l 18:13: Route: IV Drug form: SOLN, ONCE, Start date: 03/20/11 13:13:00, Stop date: 03/20/11 13:13:00 Omnipaque Yes Jin Melisa 30,000 mg, Memoria 300 9-26 100 mL, l 18:13: Route: IV Drug form: SOLN, ONCE, Start date: 03/20/11 13:13:00, Stop date: 03/20/11 13:13:00 Omnipaque 2010-0 Yes Jin Melisa 30,000 mg, Memoria 300 9-26 100 mL, l 18:13: Route: IV, [place] Drug form: SOLN, ONCE, Start date: 03/20/11 13:13:00, Stop date: 03/20/11 13:13:00 Omnipaque 2010-0 Yes Jin Melisa 30,000 mg, Memoria 300 9-26 100 mL, l 18:13: Route: IV, [place] Drug form: SOLN, ONCE, Start date: 03/20/11 [...] 9-26 mL, Route: l 17:57: IVP, Drug [place] form: INJ, ONCE, Priority: STAT, Start date: 03/20/11 12:57:00, Stop date: 03/20/11 12:57:00 hydromorpho No Jin Melisa 1 mg, 0.5 Memoria ne 9-26 mL, Route: l 17:57: IVP, Drug [place] form: INJ, ONCE, Priority: STAT, Start date: 03/20/11 12:57:00, Stop date: 03/20/11 12:57:00 hydromorpho No Jin Melisa 1 mg, 0.5 Memoria ne 9-26 mL, Route: l 17:57: IVP, Drug [place] form: INJ, ONCE, Priority: STAT, Start date: 03/20/11 12:57:00, Stop date: 03/20/11 12:57:00 Mirena Yes Substituti Memor ia - on Allowed l 16:11: Wiliam Mirena Yes Substituti Memor ia -26 on Allowed l 16:11: Wiliam Mirena Yes Substituti Memor ia -26 on Allowed l 16:11: Wiliam Mirena Yes Substituti Memor ia -26 on Allowed l 16:11: Wiliam Mirena Yes Substituti Memor ia -26 on Allowed l 16:11: Wiliam tramadol Yes Substituti Mem oria - on Allowed l 16:11: Wiliam tramadol Yes Substituti Mem oria 03-20 on Allowed l 16:11: Wiliam tramadol Yes Substituti Mem oria 03-20 on Allowed l 16:11: Wiliam tramadol Yes Substituti Mem oria -26 on Allowed l 16:11: Wiliam tramadol Yes Substituti Mem oria -26 on Allowed l 16:11: Wiliam Hernandez Unknown [...] 9-26 mL, Route: l 16:05: IVP, Drug [place] 00 form: INJ, ONCE, Priority: STAT, Start date: 03/20/11 11:05:00, Stop date: 03/20/11 11:05:00 Sodium 2010- No Jitendra Vincent 1,000 mL, Mem oria Chloride - Rate: l 0.9% 16:05: 1,000 [place] (Bolus) IV 00 ml/hr, 1,000 mL Infuse over: 1 hr, Route: IV, Total Volume: 1,000, Bolus Dose, Priority: STAT, Start date: 03/20/11 11:05:00, Duration: 1 doses or times, Stop date: 03/20/11 12:04:00 Saline No Jitendra Vincent 5 ml, Memoria Flush 0.9% 03-20 Route: [...] Jitendra Melisa 1,000 mL, Mem oria Chloride - Rate: l 0.9% 16:05: 1,000 [place] (Bolus) IV 00 ml/hr, 1,000 mL Infuse over: 1 hr, Route: IV, Total Volume: 1,000, [place]us Dose, Priority: STAT, Start date: 03/20/11 11:05:00, Duration: 1 doses or times, Stop date: 03/20/11 12:04:00 Saline No Jin Melisa 5 ml, Memoria Flush 0.9% 03-20 Route: l 16:05: IVP, Drug [place] 00 Form: INJ, PRN, PRN Line Flush, Start date: 03/20/11 11:05:00, Duration: 30 day, Stop date: 04/19/11 11:04:00 hydromorpho No Jin Melisa 1 mg, 0.5 Memoria ne 9-26 mL, Route: l 16:05: IVP, Drug [place] 00 form: INJ, ONCE, Priority: STAT, Start date: 03/20/11 11:05:00, Stop date: 03/20/11 11:05:00 ondansetron No Jin Melisa 4 mg, 2 Memoria 9-26 mL, Route: l 16:05: IVP, Drug [place] 00 form: INJ, ONCE, Priority: STAT, Start date: 03/20/11 11:05:00, Stop date: 03/20/11 11:05:00 Sodium 2010-0 No Jin Melisa 1,000 mL, Mem oria Chloride 03-20 Rate: l 0.9% 16:05: 1,000 [place] (Bolus) [...] 30 day, Stop date: 04/19/11 11:04:00 hydromorpho 2010-0 No Jin Melisa 1 mg, 0.5 Memoria ne 9-26 mL, Route: l 16:05: IVP, Drug [place] 00 form: INJ, ONCE, Priority: STAT, Start date: 03/20/11 11:05:00, Stop date: 03/20/11 11:05:00 ondansetron 0 No Jin Melisa 4 mg, 2 Memoria 9-26 mL, Route: l 16:05: IVP, Drug [place] 00 form: INJ, ONCE, Priority: STAT, Start date: 03/20/11 11:05:00, Stop date: 03/20/11 11:05:00 Sodium 2010- No Jitendra Vincent 1,000 mL, Mem oria Chloride - Rate: l 0.9% 16:05: 1,000 [place] (Bolus) IV 00 ml/hr, 1,000 mL Infuse over: 1 hr, Route: IV, Total Volume: 1,000, [place] Dose, Priority: STAT, Start date: 03/20/11 11:05:00, Duration: 1 doses or times, Stop date: 03/20/11 12:04:00 Saline No Jitendra Vincent 5 ml, Memoria Flush 0.9% 03-20 Route: l 16:05: IVP, Drug [place] 00 Form: INJ, PRN, PRN Line Flush, [...] 9-26 mL, Route: l 16:05: IVP, Drug [place] 00 form: INJ, ONCE, Priority: STAT, Start date: 03/20/11 11:05:00, Stop date: 03/20/11 11:05:00 Sodium No Jitendra Vincent 1,000 mL, Mem oria Chloride - Rate: l 0.9% 16:05: 1,000 [place] (Bolus) IV 00 ml/hr, 1,000 mL Infuse over: 1 hr, Route: IV, Total Volume: 1,000, [place] Dose, Priority: STAT, Start date: 03/20/11 11:05:00, Duration: 1 doses or times, Stop date: 03/20/11 12:04:00 Saline Kya Vincent 5 ml, Memoria Flush 0.9% 03-20 Route: l 16:05: IVP, Drug [place] 00 Form: INJ, PRN, PRN Line Flush, Start date: 03/20/11 11:05:00, Duration: 30 day, Stop date: 04/19/11 11:04:00 Vital Signs Vital Name Observation Time Observation Value Comments Source WEIGHT 2020-04-13 22:13:00 107 kg Systolic blood 2021-09-12 18:46:00 131 mm[Hg] Univer sity of pressure [facility] Diastolic blood 2021-09-12 18:46:00 87 mm[Hg] Unive rsity of [facility] Heart rate 2021-09-12 18:46:00 102 /min Universi ty [facility] Respiratory rate 2021-09-12 18:46:00 18 /min [facility] Oxygen saturation in 2021-09-12 18:46:00 97 /min [facility] Arterial blood by [facility] Pulse oximetry Branch Body temperature 2021-09-12 17:19:00 37.17 Melania [facility] weight 2021-09-12 17:19:00 107.956 kg Universi ty [facility] BMI 2021-09-12 17:19:00 36.19 [facility] Systolic blood 2021-07-12 16:53:00 119 mm[Hg] Univer sity of [facility] Diastolic blood 2021-07-12 16:53:00 76 mm[Hg] Unive rsity of [facility] Heart rate 2021-07-12 16:53:00 83 /min Universi ty [facility] Body temperature 2021-07-12 16:53:00 36.67 Melania [facility] ersity [facility] Respiratory rate 2021-07-12 16:53:00 16 /min [facility] Body height 2021-07-12 16:53:00 [facility] 2021-07-12 16:53:00 107.956 [facility] BMI 2021-07-12 16:53:00 36.19 kg/m2 [facility] Oxygen saturation in 2021-07-12 16:53:00 95 /min [facility] Arterial blood by [facility] Pulse oximetry Branch Systolic blood 2020-10-28 20:22:00 114 mm[Hg] Univer sity of pressure [facility] Diastolic blood 2020-10-28 20:22:00 66 mm[Hg] Unive rsity of [facility] Heart rate 2020-10-28 20:22:00 102 /min [facility] Body temperature 2020-10-28 20:22:00 36.89 Melania [facility] Respiratory rate 2020-10-28 20:22:00 18 /min [facility] Body height 2020-10-28 20:22:00 172.7 cm [facility] Body weight 2020-10-28 20:22:00 112.038 kg [facility] BMI 2020-10-28 20:22:00 37.56 kg/m2 [facility] WEIGHT 2020-04-13 22:13:00 107 kg Heart Rate 2011-03-20 20:17:00 [facility] Diastolic (mm Hg) 2011-03-20 20:17:00 Mem orial [place] Temperature Oral (F) 2011-03-20 20:17:00 98.2 F [facility] [place] Respitory Rate 2011-03-20 20:17:00 Memori al [place] Systolic (mm Hg) 2011-03-20 20:17:00 Chaka rial [place] Height 2011-03-20 16:01:00 175.26 cm [facility] [place] Weight 2011-03-20 16:01:00 [facility] [place] Diastolic (mm Hg) 2011-03-20 16:01:00 Mem orial [place] Systolic (mm Hg) 2011-03-20 16:01:00 Chaka rial [place] Respitory Rate 2011-03-20 16:01:00 Memori al [place] Heart Rate 2011-03-20 16:01:00 [facility] Temperature Oral (F) 2011-03-20 16:01:00 98.0 F [facility] Procedures Procedure Date / Time Performing Clinician Source Performed CONSENT/REFUSAL FOR 2021-09-12 17:17:14 Doctor Unassigned, No Un [facility] DIAGNOSIS AND TREATMENT Name Medical Branch PATIENT QUESTIONNAIRE 2021-07-12 06:01:00 Doctor Unassigned, No [facility] Name Medical Branch ASSIGNMENT OF BENEFITS 2020-10-28 20:06:22 Doctor Unassigned, No [facility] [place] Plan of Care Planned Activity Planned Date Details Comments Source Future Scheduled 2021-02-23 INFLUENZA VACCINE Univer sity of Test 00:00:00 (Season Ended) [place] [facility] [code = INFLUENZA Branch VACCINE (Season Ended)] Future Scheduled 2021-02-23 INFLUENZA VACCINE Univer sity of Test 00:00:00 (Season Ended) [place] [facility] [code = INFLUENZA Branch VACCINE (Season Ended)] Future Scheduled 2021-02-23 INFLUENZA VACCINE Univer sity of Test 00:00:00 (Season Ended) [place] [facility] [code = INFLUENZA Branch VACCINE (Season Ended)] Future Scheduled 2021-02-23 INFLUENZA VACCINE Univer sity of Test 00:00:00 (Season Ended) [place] [facility] [code = INFLUENZA Branch VACCINE (Season Ended)] Future Scheduled 2021-02-23 INFLUENZA VACCINE Univer sity of Test 00:00:00 (Season Ended) [place] [facility] [code = INFLUENZA Branch VACCINE (Season Ended)] Future Scheduled 2021-02-23 INFLUENZA VACCINE Univer sity of Test 00:00:00 (Season Ended) [place] [facility] [code = INFLUENZA Branch VACCINE (Season Ended)] Diagnostic Test 2020-10-28 CBC WITH DIFF Expected: University of Pending 00:00:00 [code = 65523-6] 10/28/2020, [place] [facility] Expires: Branch 10/28/2021 Future Scheduled 2014 Screening for University of Test 00:00:00 malignant neoplasm [place] [facility] ical of cervix Branch (procedure) [code = 838283011] Future Scheduled 2014 Screening for University of Test 00:00:00 malignant neoplasm [place] [facility] ical of cervix Branch (procedure) [code = 749453654] Future Scheduled 2014 Screening for University of Test 00:00:00 malignant neoplasm [place] [facility] ical of cervix Branch (procedure) [code = 866669503] Future Scheduled 2014 Screening for University of Test 00:00:00 malignant neoplasm [place] [facility] ical of cervix Branch (procedure) [code = 023113576] Future Scheduled 2014 Screening for University of Test 00:00:00 malignant neoplasm [place] [facility] ical of cervix Branch (procedure) [code = 275548695] Future Scheduled 2014 Screening for University of Test 00:00:00 malignant neoplasm [place] [facility] ical of cervix Branch (procedure) [code = 325181001] Future Scheduled 2012-02-25 DTaP,Tdap,and Td Univers ity of Test 00:00:00 Vaccines ( - [place] [facility] Tdap) [code = Branch DTaP,Tdap,and Td Vaccines (1 - Tdap)] Future Scheduled 2012-02-25 DTaP,Tdap,and Td Univers ity of Test 00:00:00 Vaccines ( - [facility] Tdap) [code = Branch DTaP,Tdap,and Td Vaccines (1 - Tdap)] Future Scheduled 2012-02-25 DTaP,Tdap,and Td Univers ity of Test 00:00:00 Vaccines ( - [facility] Tdap) [code = Branch DTaP,Tdap,and Td Vaccines (1 - Tdap)] Future Scheduled 2012-02-25 DTaP,Tdap,and Td Univers ity of Test 00:00:00 Vaccines ( - [facility] Tdap) [code = Branch DTaP,Tdap,and Td Vaccines (1 - Tdap)] Future Scheduled 2012-02-25 DTaP,Tdap,and Td Univers ity of Test 00:00:00 Vaccines ( - [facility] Tdap) [code = Branch DTaP,Tdap,and Td Vaccines (1 - Tdap)] Future Scheduled 2012-02-25 DTaP,Tdap,and Td Univers ity of Test 00:00:00 Vaccines ( - [facility] Tdap) [code = Branch DTaP,Tdap,and Td Vaccines (1 - Tdap)] Future Scheduled 2011 Hepatitis C University of Test 00:00:00 screening [place] [facility] (procedure) [code Branch = 686921573] Future Scheduled 2011 Hepatitis C University of Test 00:00:00 screening [place] [facility] (procedure) [code Branch = 138771569] Future Scheduled 2011 Hepatitis C University of Test 00:00:00 screening [place] [facility] (procedure) [code Branch = 044028577] Future Scheduled 2011 Hepatitis C University of Test 00:00:00 screening [place] [facility] (procedure) [code Branch = 515019420] Future Scheduled 2011 Hepatitis C University of Test 00:00:00 screening [place] [facility] (procedure) [code Branch = 375024719] Future Scheduled 2011 Hepatitis C University of Test 00:00:00 screening [place] [facility] (procedure) [code Branch = 415473848] Future Scheduled 2009 SARS-CoV-2 University of Test [...] screening [place] [facility] (procedure) [code Branch = 479942797] Future Scheduled 2005 Depression University of Test 00:00:00 screening [place] [facility] (procedure) [code Branch = 318471331] Future Scheduled 2005 Depression University of Test 00:00:00 screening [place] [facility] (procedure) [code Branch = 656764466] Future Scheduled 2005 Depression University of Test 00:00:00 screening [place] [facility] (procedure) [code Branch = 493283882] Future Scheduled 2005 Depression University of Test 00:00:00 screening [place] [facility] (procedure) [code Branch = 009779253] Future Scheduled 2005 Depression University of Test 00:00:00 screening [place] [facility] (procedure) [code Branch = 431820287] Encounters Start End Encounter Admission Attending Care Care Encounter Source Date/Time Date/Time Type Type Clinicians Facility Department ID 2020-04-13 Inpatient ER MILANA, SLE Surgery [id number] SLE 21:35:00 [facility] 2021-12-14 2021-12-14 Outpatient R TC, [facility] [id number] Univers 10:00:00 10:00:00 VIC farnsworth [facility] 2021-09-12 2021-09-12 [facility] [id number] Univers 12:22:00 14:16:00 ROZINA farnsworth [facility] 2021-09-12 2021-09-12 [facility] [id number] Univers 12:22:00 14:16:00 Rozina ROCA [id number] [facility] [id number] [facility] [id number] [facility] 084 Branch 2021-09-01 2021-09-01 Outpatient R AKINSIPE, [facility] [id number] Univers 13:30:00 13:30:00 RAE [id number] ity o f [facility] 2021-09-01 2021-09-01 Outpatient R AKINSIPE, [facility] [id number] Univers 13:30:00 13:30:00 RAE ity o f [facility] 2021-07-15 2021-07-15 Letter FARIDA Lawrence [id number] Univers 00:00:00 00:00:00 (Out) Pamella BARNES [id number] it [facility] [id number] Jared [id number] [facility] 019 Branch 2021-07-13 2021-07-13 Laboratory Only, Ang Db Test [facility] 1.2.8 [id number] Univers 12:00:00 12:15:00 Only Ivanna Coronado HEALTH [id number] ity of [place] 4.2.7.2.686 Jared as ANNIKA?BLEA [phone] Ut dicaustin [address] MEDICAL OFFICE BUILDING 2021-07-13 2021-07-13 Outpatient R [facility] [id number] Univers 12:00:00 12:00:00 [id number] ity [facility] 2021-07-13 2021-07-13 Outpatient R BETHANY [facility] [id number] Univers 12:00:00 12:00:00 IVANNA ity [facility] 2021-07-12 2021-07-12 Office Wagner Nguyen [facility] [id number] Univers 11:15:00 14:24:21 Visit HEALTH [id number] it y of [place] 4[place]2.7.2.686 [place] [id number] [address] OFFICE BUILDING 2021-07-12 2021-07-12 Orders Doctor FARIDA [id number] Univers 00:00:00 00:00:00 Only Unassigned, MOLLY [id number] ity of [place] [facility] [id number] Jared as [phone] [address] 2021-07-02 2021-07-02 [facility] [id number] Univers 10:01:00 14:49:00 [facility] 2020-09-15 Outpatient [facility] [id number] [address] [place] 00:00:00 00:00:[address] 2020-09-01 2020-09-08 [id number] [address] [place] 00:00:00 00:00:[address]SVIN [address] 2018-03-06 2018-03-09 Outpatient [facility] [id number] [place] 00:00:00 00:00:00 [facility] 2011-03-20 2011-03-20 Emergency nullFlavo [id number] Memoria 10:52:00 15:19:00 r [place] 00 l [place] Results Test Description Test Time Test Comments [...] NOT 1092) ACCURATE CRE ATININE CLEARANCE IN CT EDICTING GLOMERULAR FILT RATION RATE. ESTIMATED GFR IS NOT APPLICABLE FOR DIALYSIS PATIENTS. Tree Puller ID - DOMENICO MCBC W/PLT COUNT & AUTO [id number] 06:51:00 Test Item Value Reference Range Interpretation [...] PERCENT (BEAKER) (test code = 2801) CT, [id number] 15:56:00Please administer IV and PO contrastUnlisted Reason for Exam - Click Yes and Enter Reason Below->No [facility] 1995 Sex: FFINAL [...] No CT evidence of appendicitis. Signed: [facility] VerifiedDate/Time: 04/16/2020 15:56:02 Reading Location: [facility] C013Y CT Body Reading Room VWF ACTIVITY 2020-04-16 08:36:00 Test Item Value Reference Range Interpretation Comments [facility] ACTIVITY (test code = 7062608) 99 CBC W/PLT COUNT & AUTO [id number] 06:57:00 Test Item Value Reference Range Interpretation [...] (BEAKER) (test code = 2801) BASIC METABOLIC [id number] 06:56:00 Test Item Value Reference Range Interpretation [...] L (BEAKER) (test code = 652) CALCIUM (ARMANIAKER) 9.0 mg/dL 8.4-10.2 (test code = 697) EGFR (PILI) (test 93 mL/min/1.73 ESTIMA JESSICA GFR IS code = 1092) sq m NOT ACCURATE CREATININE CLEARANCE IN PREDICTING GLOMERULAR FILTRATION RATE . ESTIMATED GFR I S NOT APPLICABLE FOR DIALYSIS PATIEN TS. Tree Puller ID - EDASIU/S, ENDOVAGINAL (EV)2020-04-15 20:45:00Reason for exam:- >RLQ pain, rule out ovarian pathology [facility] 1995 Sex: FFINAL [...] sonographic evidence of ovarian torsion. Signed: Zain Pearceeport Verified Date/Time: 04/15/2020 20:45:52 Electronically signed by: Omar CHAKRABORTY 04/15/2020 08:45 PMBASI METABOLIC [id number] 07:27:00 Test Item Value Reference Range Interpretation [...] S NOT APPLICABLE FOR DIALYSIS PATIEN TS. Tree Puller ID - DOMENICO MCBC W/PLT COUNT & AUTO [id number] 07:03:00 Test Item Value Reference Range Interpretation [...] (BEAKER) (test code = 2801) FACTOR 9 [id number] 13:15:00 Test Item Value Reference Range Interpretation Comments FACTOR IX ACTIVITY (BEAKER) (test 169.0 % 60.0-150.0 H code = 666) FACTOR 8 [id number] 13:14:00 Test Item Value Reference Range Interpretation Comments FACTOR VIII ACTIVITY (BEAKER) (test 76.0 % 45.0-150.0 code = 663) VON [place] FACTOR (VWF) [id number] 13:13:00 Test Item Value Reference Range Interpretation Comments VWF ANTIGEN (BEAKER) (test code = 66.0 % 50.0-160.0 4815) SARS-COV2/RT-PCR ([facility])2020-04-14 09:20:00 Test Item Value Reference Range Interpretation Comments SARS-COV2/RT-PCR (test Negative Not Detected, Negative, code = 3740419) See external report for linked test SARS-COV-2 PERFORMING LAB [facility] (test code = 6040708) Negative result for this test determines that [...] 564(g) of the Act.Fact Sheet for Healthcare Providers:https://www.IPextremeidel.com/sites/default/files/product/documents/Fact_Shee l_TT_Wgkerelzl_Fldk_DNCA-JkL-4.pdfFact Sheet for Healthcare Patients:https://www.IPextremeidel.com/sites/default/files/product/ documents/Gocs_Kdiwc_Cxeqlqvd_Nzhf_FLIH-VhS-5.pdfPerforming Laboratory:[facility], [place] [address]FANUHVFKL SCREEN, [id number] 07:08:00 Test Item Value Reference Range Interpretation Comments TEST URINE (BEAKER) (test Negative code = 583) BASIC METABOLIC [id number] 05:42:00 Test Item Value Reference Range Interpretation [...] S NOT APPLICABLE FOR DIALYSIS PATIEN TS. Tree Puller ID - EDASIHEPATIC FUNCTION [id number] 05:39:00 Test Item Value Reference Range Interpretation [...] (test code = 8 U/L 6-55 347) Tree Puller ID - EDASICBC W/PLT COUNT & AUTO [id number] 05:32:00 Test Item Value Reference Range Interpretation [...] PERCENT (BEAKER) (test code = 2801) PROTHROMBIN [id number] 05:24:00 Test Item Value Reference Range Interpretation [...] for patients wiht mechanical heart valves.LACTIC ACID, [id number] 00:13:00 Test Item Value Reference Range Interpretation Comments LACTATE BLOOD VENOUS (2) (BEAKER) 0.44 mmol/L 0.50-2.20 L (test code = 2872) Tree Puller ID - PIAYA [id number] 16:35:007.6[facility] 2011-[facility]-20 16:35:0025.0[facility] [id number] 16:35:0088.0[facility] [id number] 16:35:0010.0[facility] [id number] 16:35:0022.0[facility] [id number] 16:35:004.1[facility] [id number] 16:35:87347.0[facility]orial [id number] 16:35:00 137.0[facility]orial ZxgwjfeMCKXCPMUG0222-67-63 16:35:000.6[facility]annCHEMISTRY 2011-[facility]-20 16:35:009.4[facility] UfpqhiyUGWPZHAFR0103-91-94 16:35:003.8[facility] XuwplxfKAPUYWKWN2012-49-20 16:35:0015.1[facility] PwbylncSAQNSTIPY9639-23-31 16:35:00 Test Item Value Reference Range Interpretation Comments A/G Ratio (test code = A/G Ratio) 1.0 1 0.7-1.6 N [facility] ZdqorivZXRSQYIVB6918-44-36 16:35:003.8[facility]annCHEMISTRY 2011-03-20 16:35:00 Test Item Value Reference Range Interpretation Comments B/C Ratio (test code = B/C Ratio) 17.0 1 6-25 N [facility] CtyaasnHDQTZIXSI6558-35-73 16:35:0035.0[facility]annCHEMISTRY 2011-03-20 16:35:0083.0[facility] TxrnpxaDEUZMPCKTY4524-83-24 16:35:009.6[facility] PmpbufnECBRAZUKLZ1509-16-10 16:35:71090.0[facility] GbowmocSATEFLJSKW5229-92-65 16:35:0012.7[facility] HtaumqiEDKEHJWJWO9864-27-35 16:35:0033.7[facility] LDJDYPDEIH0040-17-60 16:35:0013.6[facility] FdsxxzuBMLRWTOZOW9844-34-72 16:35:00 40.4[facility] OasyuulXHBYNUSVOV3015-94-59 16:35:004.82[facility]annHEMATOLOGY 2011-03-20 16:35:009.0[facility] WgsgsqmBKIHORMYCC9621-66-91 16:35:00 Test Item Value Reference Range Interpretation Comments MCH (test code = MCH) 28.2 pg 27.0-31.0 N [facility] JwindnhLKGZKVQJGF8263-45-21 16:35:0083.8[facility]annHEMATOLOGY 2011-03-20 16:35:000.1[facility] RpqvedyLBWQCBGXZD1852-97-18 16:35:001.8[facility] GkzbcyqRTPORVWPUO9606-26-68 16:35:006.3[facility] UdhjkroZSFXPUYJED0832-44-50 16:35:00Normal (03/20/2011 11:35:00) ??[facility] PwnbympBOMVRJXPWB6097-15-74 16:35:002.4[facility] RdujhppDEIGTPZUFE3777-42-23 16:35:000.9[facility] DCVKOHCDEY6380-24-34 16:35:0019.8[facility] ChzwhukWCGQGHEIQP3407-35-24 16:35:00 7.3[facility] WpghfkzCYKXUKBVCI4561-62-54 16:35:000.2[facility]annHEMATOLOGY 2011-03-20 16:35:000.7[facility] NtgjmccLPSLQGXQLZ6102-61-66 16:35:0069.6[facility] VbxtdamVPIONFJBDF7722-38-19 16:35:00Normal (03/20/2011 11:35:00) ??[facility] RoxnnzeNOWJKUFDTX2429-51-15 16:35:003-5 /HPF *ABN*(03/20/2011 11:35:00) ?? [facility] CsjhvwjERLHIYPAW6317-97-30 16:35:00Negative (03/20/2011 11:35:00) ?? [facility]ZzdnyhwGPIFILWAIG7737-99-89 16:35:00Moderate /HPF (03/20/2011 11:35:00) ??[facility]bergBeujmisPFORJFKSKG2455-25-18 16:35:003-5 /HPF (03/20/2011 11:35:00) ?? [facility]bergDwzklqkVVAVENJCVL3552-14-64 16:35:00Many /LPF *ABN*(03/20/2011 11:35:00) ??[facility]bergEkvorknKRTVYOWCMW1125-05-34 16:35:00Negative (03/20/2011 11:35:00) ??[facility]bergJptzndgSSPQTKDQUN3921-52-60 16:35:00Negative (03/20/2011 11:35:00) ??[facility]bergGkibhehQROPUXUYLZ7309-74-34 16:35:00Moderate /LPF *ABN*(03/20/2011 11:35:00) ??[facility]bergDnzkevsHZAHNXWIQJ4734-31-69 16:35:001.0 [facility] KlebergYkgtoiqESZYUPBLAX6554-35-52 16:35:00Small *ABN*(03/20/2011 11:35:00) ?? [facility]bergKsfrhnrGTTDEFBFWD2718-28-90 16:35:00Moderate *ABN*(03/20/2011 11:35:00) ??[facility] KlebergQqapsmnETCRUCZGEP5432-64-89 16:35:0040 mg/dL *ABN*(03/20/2011 11:35:00) ??[facility] WdklydkMOQKONCMM0049-02-00 16:35:0011.0[facility] GKKMCTJHEB9799-83-34 16:35:00Negative (03/20/2011 11:35:00) ??[facility] [place] VKBEWYMNIZ2057-53-92 16:35:00>=1.030 *ABN*(03/20/2011 11:35:00) ??[facility] BykrrrjPSCPQJSNIW0928-01-54 16:35:00Trace *ABN*(03/20/2011 11:35:00) ??[facility] IqdhlfbSIGDWLHZBJ5080-69-13 16:35:00 Test Item Value Reference Range Interpretation Comments UA pH (test code = UA pH) 6.0 1 5.0-8.0 N [facility] DzkduqbVEBCUSFSPZ7869-89-83 16:35:00Slight Cloudy (03/20/2011 11:35:00) ??[facility] YfuxugvCJUYVWYBCP6676-79-97 16:35:00Yellow *NA*(03/20/2011 11:35:00) ??[facility] KmladvdBXAWENIEL4259-14-22 16:35:001.0[facility]annCHEMISTRY 2011-03-20 16:35:00Negative (03/20/2011 11:35:00) ??[facility] HermannCHEMISTRY 2011-03-20 16:35:0011.0[facility] WaidjifZDKVCCVYW0183-10-67 16:35:001.0[facility] ZkucydlSXMWUMQEE1247-39-94 16:35:0084.0[facility] EqkfitdGBHXOLSCF3771-75-51 16:35:0084.0[facility] AghmmklDNFNODRBB6733-07-88 16:35:007.6[facility] KTMSENQLH4583-70-63 16:35:0025.0[facility] NhfmegjNVIKOTKED6159-73-84 16:35:0088.0 [facility] WywsxzbDYCPMDQMZ6232-73-13 16:35:0010.0[facility]annCHEMISTRY 2011-03-20 16:35:0022.0[facility] YvpukkrKVFWPVBSA2012-67-84 16:35:004.1[facility] HooinkkBCDBACLQW0788-54-89 16:35:09676.0[facility] AaonikxIVWPLCXCU4489-23-68 16:35:68267.0[facility] GxsxasgYSZDECUWI3763-45-93 16:35:000.6[facility] DHVPDWLHY2512-89-84 16:35:009.4[facility] CwbgrhvODYBEGWUJ9491-22-64 16:35:007.6 [facility] MewvipnUSQKBFHYP9412-53-11 16:35:003.8[facility]annCHEMISTRY 2011-03-20 16:35:0015.1[facility] LbmxfyvOMGOQPOHU2998-42-18 16:35:00 Test Item Value Reference Range Interpretation Comments A/G Ratio (test code = A/G Ratio) 1.0 1 0.7-1.6 N [facility] IzmuihfJTFNBXHDR6887-22-76 16:35:003.8[facility]annCHEMISTRY 2011-03-20 16:35:00 Test Item Value Reference Range Interpretation Comments B/C Ratio (test code = B/C Ratio) 17.0 1 6-25 N [facility] AnwsafkXBZVBIIIC2738-61-71 16:35:0035.0[facility]annCHEMISTRY 2011-03-20 16:35:0083.0[facility] GxaalulSPIFUITBUO4810-53-69 16:35:009.6[facility] MfggmuuSUOQPAHWJQ1879-63-22 16:35:57967.0[facility] BsdxxzzVIBBXIGDNO9898-06-47 16:35:0012.7[facility] YasgutfVCQJBHONM2983-07-42 16:35:0025.0[facility] EZDXGGNXER6409-95-86 16:35:0033.7[facility] FfxnzavZYLYCBHHMG2967-21-24 16:35:00 13.6[facility] UrmguybGMFPPYTMMW1620-64-79 16:35:0040.4[facility]annHEMATOLOGY 2011-03-20 16:35:004.82[facility] FefuyldVYWEMDUFWH0851-79-13 16:35:009.0[facility] KylwuulFTUQFFDJAL0261-04-60 16:35:00 Test Item Value Reference Range Interpretation Comments MCH (test code = MCH) 28.2 pg 27.0-31.0 N [facility] XsmropuOKXBHKUEZL9372-48-20 16:35:0083.8[facility]annHEMATOLOGY 2011-03-20 16:35:000.1[facility] JexbrosFHYYFVBJWQ2259-14-86 16:35:001.8[facility] ZfqwicuSNVERWVCRM3423-67-95 16:35:006.3[facility] WckowokJGOWUMOEU6017-48-23 16:35:0088.0[facility] UvfkhvbUFCOKTIHSJ1840-73-32 16:35:00Normal (03/20/2011 11:35:00) ??[facility] EnovglnTLKMEYWAQG6768-00-12 16:35:002.4[facility] SMJHKHRFHD2392-37-90 16:35:000.9[facility] NzrzstgXRVZQVHDYW4321-42-75 16:35:00 19.8[facility] HlijtehPZYOWTNBSM5976-02-01 16:35:007.3[facility]annHEMATOLOGY 2011-03-20 16:35:000.2[facility] QngslcyCRRMOXMTOG4523-07-65 16:35:000.7[facility] AgazunnMTEUXKKYNF2383-13-58 16:35:0069.6[facility] WnhadqxVGFHJCTDLK0971-96-51 16:35:00Normal (03/20/2011 11:35:00) ??[facility] NzadpriLTDFCZGLPO1391-70-14 16:35:003-5 /HPF *ABN*(03/20/2011 11:35:00) ??[facility]annCHEMISTRY 2011-03-20 16:35:0010.0[facility] MwliixfVZUIOCDNHX0458-84-88 16:35:00Moderate /HPF (03/20/2011 11:35:00) ??[facility] SensmqbCHIKRHYOSA6189-05-70 16:35:003-5 /HPF (03/20/2011 11:35:00) ??[facility] LvnmzzpUVJGNGHJDM2314-34-17 16:35:00Many /LPF *ABN*(03/20/2011 11:35:00) ??[facility]bergIduhazvTJQERHNULF3848-69-29 16:35:00 Negative (03/20/2011 11:35:00) ??[facility] KlebergQawiynwTOIQULQUQZ7732-51-79 16:35:00 Negative (03/20/2011 11:35:00) ??[facility]bergEgvdhttDTAPSVLPHB3364-43-57 16:35:00 Moderate /LPF *ABN*(03/20/2011 11:35:00) ??[facility]bergDnhybkvIFZEOWLYFB4208-29-53 16:35:001.0[facility] KzbgbzlTHWRCMMXNH0510-18-52 16:35:00Small *ABN*(03/20/2011 11:35:00) ??[facility]bergBycjmfoGQVTADMFID0031-91-27 16:35:00Moderate *ABN*(03/20/2011 11:35:00) ??[facility]bergIpqeveqKKHXLJYRUF4435-18-52 16:35:0040 mg/dL *ABN*(03/20/2011 11:35:00) ??[facility]bergPojmqkbJPNVBMXGG2873-61-13 16:35:00 22.0[facility] ViyukunGFUYMAQOMF0120-19-54 16:35:00Negative (03/20/2011 11:35:00) ??[facility]bergDtzavyfGBFKZUJHLW9328-85-87 16:35:00>=1.030 *ABN*(03/20/2011 11:35:00) ??[facility] KlebergRdsfmkuSYKPXBIWPY1109-54-76 16:35:00Trace *ABN*(03/20/2011 11:35:00) ??[facility] KlebergLmgfilgPATDFBVGFK5156-88-66 16:35:00 Test Item Value Reference Range Interpretation Comments UA pH (test code = UA pH) 6.0 1 5.0-8.0 N [facility] KlebergZhiayqcKQZLIHKUYJ3032-02-58 16:35:00Slight Cloudy (03/20/2011 11:35:00) ??[facility] KlebergXokimpxGXWFGIZRAI7295-65-24 16:35:00Yellow *NA*(03/20/2011 11:35:00) ??[facility] WvkefsbZLULZHVXJ3297-97-51 16:35:004.1[facility]annCHEMISTRY 2011-03-20 16:35:00Negative (03/20/2011 11:35:00) ??[facility]annCHEMISTRY 2011-03-20 16:35:0011.0[facility] WlxihpgQTDHQMMCL5436-59-98 16:35:001.0[facility] PjhgtoiCROZMWCQQ1424-77-26 16:35:0084.0[facility] EquabdbRXWLFSLDH8011-85-47 16:35:69580.0[facility] NfvlxrfKEXWUMGSY2564-02-54 16:35:007.6[facility] FPERHBCFZ3811-71-12 16:35:0025.0[facility] CwpgmkmHBTZLHOFC9988-08-79 16:35:0088.0 [facility] YqxufwlJHBCEXKML2275-51-56 16:35:0010.0[facility]annCHEMISTRY 2011-03-20 16:35:0022.0[facility] KcczlozSEWGKEHUE0925-00-71 16:35:004.1[facility] IpqcobxXMPIPPSBK9117-48-41 16:35:75466.0[facility] FdmrmjoOFEXZHQUB4297-88-56 16:35:90746.0[facility] SrciivqMCBUSKQWZ6858-85-40 16:35:000.6[facility] ZUJCWSVXO0811-26-24 16:35:009.4[facility] PkzlkyaHBQMSJDBI3951-09-46 16:35:10613.0 [facility] KqqrykbPRDJQRQEQ4365-52-09 16:35:003.8[facility]annCHEMISTRY 2011-03-20 16:35:0015.1[facility] JtpkzhfAJTTXPKQW0753-38-33 16:35:00 Test Item Value Reference Range Interpretation Comments A/G Ratio (test code = A/G Ratio) 1.0 1 0.7-1.6 N [facility] SfxgvutXSFSEWDAH9740-95-26 16:35:003.8[facility]annCHEMISTRY 2011-03-20 16:35:00 Test Item Value Reference Range Interpretation Comments B/C Ratio (test code = B/C Ratio) 17.0 1 6-25 N [facility] RcpwjnpDYBXXJNIP8779-48-57 16:35:0035.0[facility]annCHEMISTRY 2011-03-20 16:35:0083.0[facility] RdjbfmbYPDTMBCDUN1267-05-15 16:35:009.6[facility] WoqyghzLSWXZIABLH9952-86-96 16:35:91886.0[facility] NkzlotwIODRSNWQVP4095-00-00 16:35:0012.7[facility] KlhfulbKTXYXDLGC9774-44-02 16:35:000.6[facility] WSDDMVNERA3796-57-05 16:35:0033.7[facility] GfwioltCAFLBVTKUK2952-21-66 16:35:00 13.6[facility] PqociyvRLFPIGGDVQ7045-73-09 16:35:0040.4[facility]annHEMATOLOGY 2011-03-20 16:35:004.82[facility] ZhwbyfmVEGWVEPFWV1488-35-93 16:35:009.0[facility] HcipmmqLTJYRMLWAA7657-64-49 16:35:00 Test Item Value Reference Range Interpretation Comments MCH (test code = MCH) 28.2 pg 27.0-31.0 N [facility] BglstexDFZQJDROXW3045-08-03 16:35:0083.8[facility]annHEMATOLOGY 2011-03-20 16:35:000.1[facility] QdyxasyYBTQMUSOSK3222-42-84 16:35:001.8[facility] NkteobdMVFCSQHXYA3268-90-87 16:35:006.3[facility] XpapyvyFGDMENTJY4219-95-00 16:35:009.4[facility] FgpexbkYRAZCZAKWJ0179-92-28 16:35:00Normal (03/20/2011 11:35:00) ??[facility] QxbmwcrJIBTWIRWIK1010-06-68 16:35:002.4[facility] MHJBCKTXIW6815-25-80 16:35:000.9[facility] QzpxvstXQCKNXYHQY3076-48-04 16:35:00 19.8[facility] VzjclhmNDMGDYIECJ8742-21-01 16:35:007.3[facility]annHEMATOLOGY 2011-03-20 16:35:000.2[facility] ExsdviuTEBIPCUZPD1350-78-79 16:35:000.7[facility] TuecwrgERBIRFHYWW9182-11-58 16:35:0069.6[facility] TflnawwIPBLFCLNHP9895-36-53 16:35:00Normal (03/20/2011 11:35:00) ??[facility] PlfvauvHPFQVNIIYG9089-84-21 16:35:003-5 /HPF *ABN*(03/20/2011 11:35:00) ??[facility]annCHEMISTRY 2011-03-20 16:35:003.8[facility] OhakedlLLHYLAXJBN5859-61-04 16:35:00Moderate /HPF (03/20/2011 11:35:00) ??[facility]bergWxvywwzVHMSPSIKZY8846-89-00 16:35:003-5 /HPF (03/20/2011 11:35:00) ??[facility] KlebergUdxqbunSSCGXIQBTP2890-60-84 16:35:00Many /LPF *ABN*(03/20/2011 11:35:00) ??[facility] KlebergOcykyjpLPLDPCZWAE5215-73-56 16:35:00 Negative (03/20/2011 11:35:00) ??[facility] KlebergGqgsphaFTCZDJEHDG6324-32-88 16:35:00 Negative (03/20/2011 11:35:00) ??[facility]bergEexsfjpAHRPGCCBUL9506-94-67 16:35:00 Moderate /LPF *ABN*(03/20/2011 11:35:00) ??[facility]bergPgyfqcvTWYJIDMTCN3598-07-32 16:35:001.0[facility] VyvareqXQHPFOMRIK0428-30-15 16:35:00Small *ABN*(03/20/2011 11:35:00) ??[facility] KlebergGiiuxryIIHVZXGROP6349-69-07 16:35:00Moderate *ABN*(03/20/2011 11:35:00) ??[facility] KlebergPihtnpcCOLTEZFGIN9954-07-16 16:35:0040 mg/dL *ABN*(03/20/2011 11:35:00) ??[facility] JormrwrEXRZSYFQL2607-84-76 16:35:00 15.1[facility] NilfemoEUHGRTODKP5369-95-73 16:35:00Negative (03/20/2011 11:35:00) ??[facility] AaldfevCAVFTYXPGQ3570-73-23 16:35:00>=1.030 *ABN*(03/20/2011 11:35:00) ??[facility] QodzymtNJFODRLXHH7025-60-20 16:35:00Trace *ABN*(03/20/2011 11:35:00) ??[facility] ZcjujcjQHFLESRIHS9270-98-43 16:35:00 Test Item Value Reference Range Interpretation Comments UA pH (test code = UA pH) 6.0 1 5.0-8.0 N [facility] NygexseMLXNGKWKDM0348-20-91 16:35:00Slight Cloudy (03/20/2011 11:35:00) ??[facility] AadayccUNPQJVJSYO3061-18-68 16:35:00Yellow *NA*(03/20/2011 11:35:00) ??[facility] GcuvreyXXQNEECDW9809-53-22 16:35:00 Test Item Value Reference Range Interpretation Comments A/G Ratio (test code = A/G Ratio) 1.0 1 0.7-1.6 N [facility] UpxdvktQNAHRGEOS0684-19-93 16:35:00Negative (03/20/2011 11:35:00) ?? [facility] TrmmkckSBREFNZEI6289-09-16 16:35:0011.0[facility]annCHEMISTRY 2011-03-20 16:35:001.0[facility] EbtnlqxBVIHDUDWD3125-63-86 16:35:0084.0[facility] JggbiszNHLCIYEXP1171-39-87 16:35:003.8[facility] DluurenEKINCZCSB7718-26-88 16:35:007.6[facility] KjnhuiuBTPLKWVAN9035-45-41 16:35:0025.0[facility] UNNJVXOFM9431-13-56 16:35:0088.0[facility] AwaazwyNWAUWFNUX9458-91-46 16:35:0010.0 [facility] HtadapaYZLVISFPG6676-53-27 16:35:0022.0[facility]annCHEMISTRY 2011-03-20 16:35:004.1[facility] CghncwbPWSRESHTQ7566-72-96 16:35:50358.0[facility] IjokmroDHSLKMVHS0609-26-56 16:35:92293.0[facility] EgnvuudCEEWFHKYN8586-83-57 16:35:000.6[facility] XuwbyvdGKVYQZRPG4882-91-18 16:35:009.4[facility] IBQIBXGEI8998-25-13 16:35:00 Test Item Value Reference Range Interpretation Comments B/C Ratio (test code = B/C Ratio) 17.0 1 -25 N [facility] EvmlribBXKGSHVIK6972-10-68 16:35:003.8[facility]annCHEMISTRY 2011-03-20 16:35:0015.1[facility] FauazybVJYXBYTAN9901-66-75 16:35:00 Test Item Value Reference Range Interpretation Comments A/G Ratio (test code = A/G Ratio) 1.0 1 0.7-1.6 N [facility] ObrafmlQZUXGIVEZ5854-36-09 16:35:003.8[facility]annCHEMISTRY 2011-03-20 16:35:00 Test Item Value Reference Range Interpretation Comments B/C Ratio (test code = B/C Ratio) 17.0 1 6-25 N [facility] KkfzjblDFDTDOQGN8766-51-08 16:35:0035.0[facility]annCHEMISTRY 2011-03-20 16:35:0083.0[facility] WsghjbjCYHMFSUNGN0728-32-16 16:35:009.6[facility] McefjzkJLVOWQXFZV4133-06-88 16:35:34759.0[facility] IzkujpkQUUBMOYRZM0495-09-78 16:35:0012.7[facility] VwrbzosTHDGACFVJ0569-04-06 16:35:0035.0[facility] TKARQSAIMH9070-48-66 16:35:0033.7[facility] ZczpvyrSHXWZLIGFH5758-63-13 16:35:00 13.6[facility] BaenxloIEKZLUSWGO4064-49-85 16:35:0040.4[facility]annHEMATOLOGY 2011-03-20 16:35:004.82[facility] MvmspllZZVTIENIQA1886-26-64 16:35:009.0[facility] FtkcnvdBHKBYEGWXN0882-93-36 16:35:00 Test Item Value Reference Range Interpretation Comments MCH (test code = MCH) 28.2 pg 27.0-31.0 N [facility] BlvixzbGNVPFXNLCQ6953-41-74 16:35:0083.8[facility]annHEMATOLOGY 2011-03-20 16:35:000.1[facility] QiecpdpTNTQWEQMHR6328-98-78 16:35:001.8[facility] DpgkdniDPYXGQGXOF6304-03-42 16:35:006.3[facility] LvkqvdrXUNABUYQB5768-77-22 16:35:0083.0[facility] JwdkgjlQSLMRBTUGG3339-88-84 16:35:00Normal (03/20/2011 11:35:00) ??[facility] DnteoplDOLBRVOEXR5555-34-77 16:35:002.4[facility] LQBQNKBCNL2619-84-44 16:35:000.9[facility] CiyqaykXDRCGNLEHD0060-06-33 16:35:00 19.8[facility] EsqbuqpZHHCMESEAJ2690-55-57 16:35:007.3[facility]annHEMATOLOGY 2011-03-20 16:35:000.2[facility] QfbxzcmNYUEXCGVMH5000-65-43 16:35:000.7[facility] RizqazeFNUBHMVDFS5536-97-91 16:35:0069.6[facility] VxwdjbdSVJAVHGTTG7801-46-16 16:35:00Normal (03/20/2011 11:35:00) ??[facility] RdlumkeQCQCGVSNEP2366-00-74 16:35:003-5 /HPF *ABN*(03/20/2011 11:35:00) ??[facility]annHE[facility]Y 2011-03-20 16:35:009.6[facility] FmrgmsvWBPXAWOLIO8406-27-31 16:35:00Moderate /HPF (03/20/2011 11:35:00) ??[facility] UsdsdjmADTAMSOZNI0203-99-37 16:35:003-5 /HPF (03/20/2011 11:35:00) ??[facility]bergJlgwzzwSXFISLFUOC1886-55-36 16:35:00Many /LPF *ABN*(03/20/2011 11:35:00) ??[facility] KlebergYbcmuljPAKCFTEVXX2839-71-22 16:35:00 Negative (03/20/2011 11:35:00) ??[facility] KlebergXrdqohoQZIRXMJANY0635-44-76 16:35:00 Negative (03/20/2011 11:35:00) ??[facility] KlebergGwthgevHAYJTSUTYM2382-06-98 16:35:00 Moderate /LPF *ABN*(03/20/2011 11:35:00) ??[facility] KlebergNnsgknzNPNEUCVHMG8991-58-19 16:35:001.0[facility]ZsqbegoHCXJGZZJBL8249-84-70 16:35:00Small *ABN*(03/20/2011 11:35:00) [facility]JemxanqJVITJNRQLQ7750-04-42 16:35:00Moderate *ABN*(03/20/2011 11:35:00) ??[facility] KlebergPbsblocNLDBCQTOHX4670-41-07 16:35:0040 mg/dL *ABN*(03/20/2011 11:35:00) ??[facility] HospitalFyyeclhGIBGLSLELF4084-70-73 16:35:00 233.0[facility] GuqmyfnXFZQGFHYZS5182-80-50 16:35:00Negative (03/20/2011 11:35:00) ??[facility]bergNztzavtZXOZPJAHLA4894-54-97 16:35:00>=1.030 *ABN*(03/20/2011 11:35:00) ??[facility] KlebergSliqwzsFBAWLSMWKU6254-04-04 16:35:00Trace *ABN*(03/20/2011 11:35:00) ??[facility] HospitalYbyzpjxQKLCCHOFTM9977-30-87 16:35:00 Test Item Value Reference Range Interpretation Comments UA pH (test code = UA pH) 6.0 1 5.0-8.0 N [facility] HospitalUlhnxkqJJHFNXVIHR5152-85-60 16:35:00Slight Cloudy (03/20/2011 11:35:00) ??[facility] LheulfdIEYSFXMTTY2941-63-37 16:35:00Yellow *NA*(03/20/2011 11:35:00) ??[facility] NrqelzdWODKPELEFR1873-45-56 16:35:0012.7[facility] 2011-[facility]-20 16:35:0033.7[facility] EbpldzcVLXUKLVULZ9062-92-75 16:35:0013.6[facility] EnsijpyQBUBDLFRLJ6250-96-39 16:35:0040.4[facility] CznldqrEOYSTRJZMW1836-83-90 16:35:004.82[facility] UwchouiCZBTCUAYJC7215-34-99 16:35:009.0[facility] SFSRALOVMU5280-55-13 16:35:00 Test Item Value Reference Range Interpretation Comments MCH (test code = MCH) 28.2 pg 27.0-31.0 N [facility] OzbyznpHVBNLYDYPU7903-06-67 16:35:0083.8[facility]ann[facility]OLOGY 2011-03-20 16:35:000.1[facility] IsirwdzNKCKMKYLRK0069-38-62 16:35:001.8[facility] CkjdlrsSXWCUBZWHO2104-05-35 16:35:006.3[facility] EdwpydqXMKBDMPACB9032-43-13 16:35:00Normal (03/20/2011 11:35:00) ??[facility] NvpcxysCDWNZDWXVI9552-74-27 16:35:002.4[facility] DhabnfzYBXYKFMSCN7471-14-40 16:35:000.9[facility] SZAGJSBHNK4436-68-46 16:35:0019.8[facility] HoqcwjqIAENBPEHEW9681-45-77 16:35:00 7.3[facility] WavpdrfODBPPBOXYM1617-83-83 16:35:000.2[facility]HE[facility]OLOG[facility] 2011-03-20 16:35:000.7[facility] BvxcgsjOIQUPKUOEP4441-44-34 16:35:0069.6[facility] SyuimyiSVMCJFZLRZ8999-35-71 16:35:00Normal (03/20/2011 11:35:00) ??[facility] NtjefhhPMAEPALCMR6516-52-82 16:35:003-5 /HPF *ABN*(03/20/2011 11:35:00) ?? [facility]UsdgrhvRBBSUGWVRX6872-37-04 16:35:00Moderate /HPF (03/20/2011 11:35:00) ??[facility]bergNdnmciaHUCXNUTDZS7883-12-17 16:35:003-5 /HPF (03/20/2011 11:35:00) ?? [facility]bergNiiykcfBXIMGLABME4382-62-81 16:35:00Many /LPF *ABN*(03/20/2011 11:35:00) ??[facility]bergIubcvjrWRBHQOEJQD7560-79-49 16:35:00Negative (03/20/2011 11:35:00) ??[facility] KlebergNuaskofLMRPSTNNHT3852-96-32 16:35:00Negative (03/20/2011 11:35:00) ??[facility] KlebergJcwzyecGTMGWUSUPL3128-23-11 16:35:00Moderate /LPF *ABN*(03/20/2011 11:35:00) ??[facility] KlebergMqgniacEZZFFNCDKD4680-75-32 16:35:001.0 [facility] KlebergPlxnulpORITGUIZKY1245-04-11 16:35:00Small *ABN*(03/20/2011 11:35:00) ?? [facility]WsdbfkwTMSAITJGPL8457-83-65 16:35:00Moderate *ABN*(03/20/2011 11:35:00) ??[facility] KlebergUiebbjyXSVHROGKHY4024-99-06 16:35:0040 mg/dL *ABN*(03/20/2011 11:35:00) ??[facility]bergQgbixsrPGUJJPRNFW8087-92-92 16:35:00Negative (03/20/2011 11:35:00) ??[facility] KlebergIeiwajwEQEWIFUIMW5711-00-43 16:35:00>=1.030 *ABN*(03/20/2011 11:35:00) ??[facility] KlebergBsfgvoiVBSAUHJNSQ3828-56-82 16:35:00Trace *ABN*(03/20/2011 11:35:00) ??[facility] WgbudatCJHTCVIUVA5000-52-76 16:35:00 Test Item Value Reference Range Interpretation Comments UA pH (test code = UA pH) 6.0 1 5.0-8.0 N [facility] XrwffhgKMGUUKZJQU4302-30-97 16:35:00Slight Cloudy (03/20/2011 11:35:00) ??[facility] PjxcuivKODDHUCNHA1519-09-91 16:35:00Yellow *NA*(03/20/2011 11:35:00) ??[facility] DwfzsfmFGVJRELAK4624-63-21 16:35:00Negative (03/20/2011 11:35:00) ?? [facility] MirtstdOQQRSFLAF4871-70-56 16:35:0011.0[facility]annCHEMISTRY 2011-03-20 16:35:001.0[facility] CxydnnkZGQPZJUOZ8876-06-07 16:35:0084.0[facility]
[2021-09-12 14:46] LABS: Urine Blood Negative (Negative); Urine Glucose Negative (Negative); Urine Protein Trace (Negative); Urine Specific Gravity >=1.030 (1.005-1.030); Urine pH 5.5 (5.0-7.0)
--- NOTE | 2021-09-12 15:11 | RAD REPORT ---
EXAM DESCRIPTION: CT - Spine Lumbar Wo Con - 09/12/2021 2:55 pm CLINICAL HISTORY: Radiculopathy. PAIN COMPARISON: No comparisons TECHNIQUE: Axial noncontrast CT imaging of the lumbar spine was performed with coronal and sagittal re-formatted images. All CT scans are performed using dose optimization technique as appropriate and may include automated exposure control or mA/KV adjustment according to patient size. FINDINGS: No acute lumbar spine fracture seen. No aggressive marrow pattern or malalignment. Paraspinal tissues are normal in thickness. No paraspinal abscess or hematoma seen. Mild posterior disc bulging lower lumbar spine. Within these limitations, no high-grade canal stenosi s suspected. IMPRESSION: Acute lumbar spine abnormality. Mild lower lumbar spondylosis.
--- NOTE | 2021-09-12 15:31 | ER ---
Nurse's Notes [facility] Name: Symone Pineda Age: 26 yrs Sex: Female : 1995 Arrival Date: 09/12/2021 Time: 14:27 Bed 11 Private MD: Diagnosis: Low back pain Presentation: 09/12 14:35 Chief complaint: Patient states: "I was helping my mom clean her house on Sunday and aa5 when I brake coupler dinkey the couch to clean under it I felt a pop on my back". Pt c/o pain to lower back. Coronavirus screen: At this time, the client does not indicate any symptoms associated with coronavirus-19. Ebola Screen: No symptoms or risks identified at this time. Initial Sepsis Screen: Does the patient meet any 2 criteria? HR > 90 bpm. Does the patient have a suspected source of infection? No. Patient's initial sepsis screen is negative. Risk Assessment: Do you want to hurt yourself or someone else? Patient reports no desire to harm self or others. Onset of symptoms was August 2021. 14:35 Method Of Arrival: Ambulatory aa5 14:35 Acuity: JUN 4 aa5 Triage Assessment: 15:53 General: Appears in no apparent distress. comfortable, Behavior is calm, cooperative, ld1 appropriate for age. Musculoskeletal: Reports pain in back. 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 - Social history:: Smoking status: Patient reports the use of cigarette tobacco products, smokes one-half pack cigarettes per day. Screenin:51 Abuse screen: Denies threats or abuse. Denies injuries from another. Nutritional ld1 screening: No deficits noted. Tuberculosis screening: No symptoms or risk factors identified. Fall Risk None identified. Assessment: 15:51 Reassessment: see triage assessment. Pain: Complains of pain in back Pain does not ld1 radiate. Neuro: Level of Consciousness is awake, alert, obeys commands, Oriented to person, place, time, situation. Cardiovascular: Capillary refill < 3 seconds Patient's skin is warm and dry. Respiratory: Airway is patent Respiratory effort is even, unlabored. Vital Signs: 14:35 BP 107 / 61; Pulse 101; Resp 18 S; Temp 98.1(TE); Pulse Ox 100% on R/A; Weight 112.04 aa5 kg (R); Height 5 ft. 8 in. (172.72 cm) (R); 14:35 Body Mass Index 37.56 (112.04 kg, 172.72 cm) aa5 ED Course: 14:27 Patient arrived in ED. mr 14:31 [facility]C [facility] kb 14:31 Rodolfo Pepe MD is Attending Physician. kb 14:35 Arm band placed on. aa5 14:37 Triage completed. aa5 14:40 Carlota Jeter, RN is Primary Nurse. ld1 14:55 CT Lumbar Spine Wo Con In Process Unspecified. EDMS 15:51 Patient has correct armband on for positive identification. Bed in low position. Call ld1 light in reach. Side rails up X2. Pulse ox on. NIBP on. Door closed. Noise minimized. 15:51 No provider procedures requiring assistance completed. Patient did not have IV access ld1 during this emergency room visit. Administered Medications: No medications were administered Outcome: 15:30 Discharge ordered by . kb 15:51 Discharged to home ambulatory. ld1 15:51 Condition: stable 15:51 Discharge instructions given to patient, Instructed on discharge instructions, follow up and referral plans. Demonstrated understanding of instructions, follow-up care. 15:53 Patient left the ED. ld1 Signatures: Dispatcher [employer] EDCA Nancie Wagner FNP-C FNP-Han Kimberly CanasSumi RN RN aa5 Carlota Jeter, RN RN ld1 Corrections: (The following items were deleted from the chart) 14:37 14:35 Initial Sepsis Screen: Does the patient meet any 2 criteria? No. Patient's aa5 initial sepsis screen is negative. Does the patient have a suspected source of infection? No. Patient's initial sepsis screen is negative. aa5 14:37 14:35 Pulse 101bpm; Resp 18bpm; Spontaneous; Pulse Ox 100% RA; Temp 98.1F Temporal; aa5 112.04 kg Reported; Height 5 ft. 8 in. Reported; BMI: 37.5; aa5 14:38 14:37 LMP 09/03/2021 aa5 aa5
--- NOTE | 2021-09-12 15:31 | EDPHYS ---
Physician Documentation [facility] Name: Symone Pineda Age: 26 yrs Sex: Female : 1995 Arrival Date: 09/12/2021 Time: 14:27 Bed 11 Private MD: ED Physician Rodolfo Pepe HPI: 09/12 15:29 This 26 yrs old Female presents to ER via Ambulatory with complaints of Back Pain. kb 15:29 The symptoms are located in the lumbar spine. The patient has not experienced similar kb symptoms in the past. The patient has not recently seen a physician. 15:29 The patient presents with pain that is acute. Onset: The symptoms/episode kb began/occurred 3 day(s) ago. The pain does not radiate. Associated signs and symptoms: The patient has no apparent associated signs or symptoms. The problem was sustained when lifting furniture. Modifying factors: The patient symptoms are alleviated by nothing, the patient symptoms are aggravated by any movement. Severity of symptoms: At their worst the symptoms were moderate, in the emergency department the symptoms are unchanged. 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 - Social history:: Smoking status: Patient reports the use of cigarette tobacco products, smokes one-half pack cigarettes per day. ROS: 15:00 Constitutional: Negative for fever, chills, and weight loss. kb 15:00 Back: Positive for pain at rest, pain with movement, of the lumbar area. 15:00 All other systems are negative. Exam: 15:00 Constitutional: This is a well developed, well nourished patient who is awake, alert, kb and in no acute distress. Head/Face: Normocephalic, atraumatic. ENT: Moist Mucous membranes Cardiovascular: Regular rate and rhythm with a normal S1 and S2. No gallops, murmurs, or rubs. No pulse deficits. Respiratory: Respirations even and unlabored. No increased work of breathing. Talking in full sentences Skin: Warm, dry with normal turgor. Normal color. MS/ Extremity: Pulses equal, no cyanosis. Neurovascular intact. Full, normal range of motion. Neuro: Awake and alert, GCS 15, oriented to person, place, time, and situation. Moves all extremities. Normal gait. Psych: Awake, alert, with orientation to person, place and time. Behavior, mood, and affect are within normal limits. 15:00 Back: pain, that is moderate, of the lumbar area, ROM is painful, normal spinal alignment noted. Vital Signs: 14:35 BP 107 / 61; Pulse 101; Resp 18 S; Temp 98.1(TE); Pulse Ox 100% on R/A; Weight 112.04 aa5 kg (R); Height 5 ft. 8 in. (172.72 cm) (R); 14:35 Body Mass Index 37.56 (112.04 kg, 172.72 cm) aa5 MDM: 14:37 Patient medically screened. kb 15:00 Data reviewed: vital signs, nurses notes. Data interpreted: Pulse oximetry: on room air kb is 100 %. Interpretation: normal. 15:25 Counseling: I had a detailed discussion with the patient and/or guardian regarding: the kb historical points, exam findings, and any diagnostic results supporting the discharge/admit diagnosis, radiology results, the need for outpatient follow up, a family practitioner, to return to the emergency department if symptoms worsen or persist or if there are any questions or concerns that arise at home. 09/12 14:45 Order name: Urine Dipstick-Ancillary; Complete Time: 14:47 EDMS 09/12 14:52 Order name: Urine --Ancillary (enter results) bd 09/12 14:37 Order name: Urine Dipstick-Ancillary (obtain specimen); Complete Time: 14:46 kb 09/12 14:37 Order name: Urine Test (obtain specimen); Complete Time: 14:46 kb 09/12 14:37 Order name: CT Lumbar Spine Wo Con; Complete Time: 15:28 kb Administered Medications: No medications were administered Disposition: 18:15 Co-signature as Attending Physician, Rodolfo Pepe MD I agree with the assessment and kdr plan of care. Disposition Summary: 09/12/21 15:30 Discharge Ordered Location: Home kb Condition: Stable kb Diagnosis - Low back pain kb Followup: kb - With: Emergency Department - When: As needed - Reason: Worsening of condition Followup: kb - With: Private Physician - When: 2 - 3 days - Reason: Recheck today's complaints, Continuance of care, Re-evaluation by your physician Discharge Instructions: - Discharge Summary Sheet kb - Acute Back Pain, Adult kb - Back Injury Prevention, [id number] kb Forms: - Work release form kb - Medication Reconciliation Form kb - Thank You Letter kb - Antibiotic Education kb - Prescription Opioid Use kb Prescriptions: - Cyclobenzaprine 10 mg Oral Tablet - take 1 tablet by ORAL route every 8 hours As needed; 15 tablet; Refills: 0, kb Product Selection Permitted - Diclofenac Sodium 75 mg Oral tablet,delayed release (DR/EC) - take 1 tablet by ORAL route 2 times per day As needed; 30 tablet; Refills: 0, kb Product Selection Permitted Signatures: Dispatcher [employer] EDNancie Milton, MARYCHUY-C PICKLE PUMPER-Rodolfo Nelson MD MD kdr Calderon, Audri, RN RN aa5
[2021-09-12 15:57] LABS: Urine Specific Gravity/Preg >1.030 (1.005-1.030)
[2021-09-12 16:10] VITALS: BP 107/61; TEMP 98.1; O2SAT 100
== END 2021-09-12 15:53 | disposition home or self-care (01) ==
LOC: ER 14:23
DX: M54.50 Low back pain, unspecified (principal); F17.210 Nicotine dependence, cigarettes, uncomplicated; Z88.0 Allergy status to penicillin; Z91.048 Other nonmedicinal substance allergy status
CPT/HCPCS: 72131; 81003; 81025; 99283